=== PATIENT | male | born 1970 | race Caucasian/White ===

== ENCOUNTER 2024-03-04 13:56 | Outpatient (REF) | payer BC, SELFPAY ==
[2024-03-04 14:38] LABS: Internal Control Within Normal Limits; SARS-CoV-2 Ag NEGATIVE (NEGATIVE)
== END 2024-03-04 13:57 | disposition home or self-care (01) ==
LOC: LAB 13:56
PROVIDERS: PCP Nurse Practitioner Family; Visit Provider Nurse Practitioner Family
DX: J06.9 Acute upper respiratory infection, unspecified (principal)
CPT/HCPCS: 87811

== ENCOUNTER 2024-10-17 13:52 | Outpatient (OUT) | payer OTHER, SELFPAY | END 2024-10-17 13:53 | disposition home or self-care (01) | LOC: US 13:53 | PROVIDERS: PCP Nurse Practitioner Family | DX: R20.0 Anesthesia of skin (principal) | CPT/HCPCS: 93971 ==

== ENCOUNTER 2024-10-18 07:47 | Outpatient (OUT) | payer OTHER, SELFPAY | END 2024-10-18 07:48 | disposition home or self-care (01) | LOC: CT 07:47 | PROVIDERS: PCP Nurse Practitioner Family | DX: R20.0 Anesthesia of skin (principal) | CPT/HCPCS: 70450 ==

== ENCOUNTER 2024-11-08 06:32 | Outpatient (OUT) | payer OTHER, SELFPAY ==
--- OUTSIDE RECORDS SUMMARY | 2024-11-08 06:34 | XMS_ITS | CCD ---
Author Organization [facility] CliniSynm Care Team Providers Care Ob/Gyn Physician Name Role Phone Provider, None Unavailable Unavailable NIRMALA AG S Primary Care Physician CHERI TYLER Admitting Unavailable CHERI TYLER Attending Unavailable NIRMALA AG Primary Care Unavailable NIRMALA AG Admitting Unavailable NIRMALA AG Attending Unavailable NIRMALA AG Primary Care Unavailable NIRMALA AG Consulting Unavailable QAMAR, DREW Attending Unavailable QAMAR, DREW Referring Unavailable QAMAR, DREW Attending Unavailable QAMAR, DREW Attending Unavailable SELF, REFERRED Referring Unavailable QAMAR, DREW Attending Unavailable QAMAR, DREW Attending Unavailable SELF, REFERRED Referring Unavailable HIRAM MURILLO Attending Unavailable QAMAR, DREW Attending Unavailable QAMAR, DREW Admitting Unavailable QAMAR, DREW Attending Unavailable QAMAR, DREW Attending Unavailable QAMAR, DREW Referring Unavailable QAMAR, DREW Referring Unavailable QAMAR, DREW Referring Unavailable QAMAR, DREW Referring Unavailable QAMAR, DREW Attending Unavailable Medications Current Medications Medication Drug Class(es) Dates Sig (Normalized) Sig (Original) fluticasone 0.05 mg/inh Nasal [place] (1 source) Start: 06-02-2021 fluticasone 0.05 mg/inh Nasal [place] 1 spray(s), Nasal, Bedtime Allergy symptoms, Refill(s) 0, Allergy symptoms Start Date: 06/02/21 Status: Ordered lisinopril 2.5 mg oral tablet (1 source) Angiotensin Converting Enzyme Inhibitor Start: 06-02-2021 take 1 tablet by mouth once daily lisinopril 2.5 mg Tab 2.5 mg = 1 tab(s), Oral, Daily, Refills(s) 0, High blood pressure Start Date: 06/02/21 Status: Ordered Problems Active Problems Problem Classification Problem Date Documented Da te Episodic/Chronic Abdominal hernia (2 sources) Umbilical hernia 06-02-2021 Episodic Essential hypertension (1 source) Hypertensive disorder 08-04-2021 Chronic Osteoarthritis (2 sources) Unilateral primary osteoarthritis, left knee; Translations: [Unilateral primary osteoarthritis, left knee] Onset: 07-19-2022 Chronic Other connective tissue disease (2 sources) Presence of left artificial knee joint; Translations: [Presence of left artificial knee joint] Onset: 10-02-2022 Chronic Other connective tissue disease (1 source) Acute bursitis 08-04-2021 Episodic Other connective tissue disease (1 source) Diastasis recti 06-08-2021 Episodic Other gastrointestinal disorders (1 source) Abdominal bloating 08-04-2021 Episodic Other gastrointestinal disorders (1 source) Alteration in bowel elimination 08-04-2021 Episodic Other non-traumatic joint disorders (2 sources) Pain in left knee; Translations: [Pain in left knee] Onset: 09-29-2022 Episodic Other nutritional; endocrine; and metabolic disorders (1 source) Body mass index 30+ - obesity 06-08-2021 Chronic Residual codes; unclassified (1 source) Obstructive sleep apnea syndrome 08-04-2021 Chronic Screening and history of mental health and substance abuse codes (1 source) Tobacco use and exposure - finding 06-08-2021 Chronic Substance-related disorders (1 source) Smoker 06-02-2021 Chronic Unclassified (1 source) Rupture of rotator cuff of shoulder 08-04-2021 Unclassified (2 sources) Post-op; Translations: [Post-op] Onset: 08-25-2022 Past or Other Problems Problem Classification Problem Date Documented Da te Episodic/Chronic Other acquired deformities (2 sources) Varus deformity, not elsewhere classified, left knee; Translations: [Varus deformity, not elsewhere classified, left knee] Onset: 07-09-2022 Episodic Viral infection (1 source) Disease caused by 2019-nCoV; Translations: [COVID-19] Results Test Name Value Interpretation Reference Range Facility Telephoneon 09-06-2022 Telephone [id number] Jeff Dillard 1970 M Date Provider Department Center 09/06/2022 [id number], NURSEMP ORTHO MPORTHO No family history on file Reason for Visit and Comments: Med Refill [[id number]] - Pt lvm on script line requesting a refill on oxycodone Normal [facility] 36on 08-26-2022 36 This report has been cancelled. [facility] Orders Onlyon 08-26-2022 Orders Only [id number] Jeff Dillard 1970 M Date Provider Department Center 08/26/2022 MELO TERRY MP ORTHO MPORTHO No family history on file [facility] Telephoneon 08-18-2022 Telephone [id number] Jeff Dillard 1970 Date [facility] Department [place] 08/18/2022 KIM WARD MP MPORTHO No family history on file [facility] Telephoneon 08-16-2022 Telephone [id number] Jeff Dillard 1970 M Date [facility] Department [place] 08/16/2022 KIM WARD MP MPORTTAYLER No family history on file [facility] 36on 08-15-2022 36 Spoke to the patient to see how he is doing after his recent surgery with Dr Hogan. Mr Dillard stated he is doing ok but his knee is still continuing to bleed through the dressing. I spoke with Dr Hogan regarding this he stated the patient needed to come to clinic as soon as possible and have one of the residents see him and apply a GURMEET dressing and speak with him regarding the patients status. The patient stated his pain is controlled with medications. He is taking all the medications he was prescribed at discharge. He denies any redness or major swelling. [facility] Office Visiton 08-15-2022 Follow-up visit [id number] Jeff Dillard 1970 M Date [facility] Department Center 08/15/2022 293-DREW HOGAN MP MPOHO Chart Close Cosign Required by: Drew Hogan MD[[id number]] No family history on file Level of Service:[id number] [place] POSTOP FOLLOW UP VISIT RELATED TO ORIGINAL PX [facility] Telephoneon 08-15-2022 Telephone [id number] Jeff Dillard 1970 M Date Provider Department Center 08/15/2022 KIM WARD MP MPORTHO No family history on file [facility] 36on 08-14-2022 36 Patient called jamie rowley that he has had some oozing from the Mepilex dressing, He inquired about possibly changing the dressing as it has become quite saturated in the oozing out. Discussed with patient that it is okay to remove the dressing if it is that saturated and oozing, but he must replace it with a new dry dressing. Emphasized that he must keep the incision clean and dry until follow-up appointment. He does not have any other symptoms, only concern is the oozing. He is informed to return to clinic or call with any other concerns. [facility] Telephoneon 08-14-2022 Telephone [id number] Jeff Dillard 1970 M Date Provider Department Center 08/14/2022 351Gretel-TERRA [address]ZA MP ORTHO MPORTHO No family history on file [facility] HPon 08-12-2022 HP H&P reviewed. The patient was examined and there are no changes to the H&P. I personally examined the patient and his operative extremity, all questions answered and consents signed. Discussed post operative plan and discussed complexity due to his severe deformity. [facility] NURSNOTEon 08-12-[address] Hogan give second dose of ancef IV prior to discharge, PIV restarted [facility] OPNOTEon 08-12-2022 OPNOTE -- Attestation signed by Drew Hogan MD at 08/15/2022 6:18 PM I was present for the henry and critical portions and I was otherwise immediately available in the OR. Date: 08/12/2022 Location: [facility] OR Name: Jeff Dillard, : 1970, Diagnosis Pre-op Diagnosis * Arthritis of left knee [M17.12] Post-op Diagnosis * Arthritis of left knee [M17.12] Procedures ARTHROPLASTY, KNEE, TOTAL [id number] - WI ARTHRP KNE CONDYLE&PLATU MEDIAL&LAT COMPARTMENTS Surgeons * Drew Hogan - Primary Procedure Summary Anesthesia: General ASA: III Estimated Blood Loss: 200 mL Total IV Fluids: per Anesthesia mL Drains: * None in log * Specimens ID Source Type Tests Collected By Collected At Frozen? Priority Lab ID 1 Knee Fluid BODY FLUID CULTURE AND ANAEROBIC CULTURE Drew Hogan MD 08/12/22 0826 Routine [id number], [id number] Description: LEFT KNEE SYNOVIAL FLUID Implants Type Name Action Serial No. Bone Cement CEMENT,BONE,R,1X40US - [id number] Implanted Total Joint PATELLA,GNSII,RESURFAC E,35MM - [id number] Implanted SIZE 6 LEFT FEMORAL COMPONENT Implanted SIZE 5 TIBIAL BASEPLATE Implanted SIZE 5-6, 9MM, ARTICULAR INSERT Implanted Staff: Story Analyst: Reyna Bucio RN Scrub Person: Rylie Lomas CST Percussion Welding Machine Operator: Dallin Momin CSA Indications: Jeff Dillard is an 52 y.o. male who is having surgery for Arthritis of left knee [M17.12]. Findings: Left knee osteoarthrisit Complications: None; patient tolerated the procedure well. Disposition: PACU - hemodynamically stable. Condition: stable Specimens Collected: Order Name Source Comment Collection Info Order Time BODY FLUID CULTURE AND ANAEROBIC CULTURE Knee Pre-op diagnosis: Arthritis of left knee [M17.12] Collected By: Drew Hogan MD 08/12/2022 8:27 AM Release to Patient Immediately Melo Wilson, PGY3 Orthopedic Surgery Resident Attending Attestation: I was present and scrubbed for the entire procedure. Drew Hogan [facility] OPNOTE ARTHROPLASTY, KNEE, TOTAL (L) Operative Note Date: 08/12/2022 Location: [facility] OR Name: Jeff Dillard, : 1970, Diagnosis Pre-op Diagnosis * Arthritis of left knee [M17.12] Post-op Diagnosis * Arthritis of left knee [M17.12] Procedures ARTHROPLASTY, KNEE, TOTAL [id number] - WI ARTHRP KNE CONDYLE&PLATU MEDIAL&LAT COMPARTMENTS Left Total knee Arthropasty Surgeons * Drew Hogan - Primary Melo Wilson MD Procedure Summary Anesthesia: General ASA: III Estimated Blood Loss: 200 mL Drains: * None in log * Specimens ID Source Type Tests Collected By Collected At Frozen? Priority Lab ID 1 Knee Fluid BODY FLUID CULTURE AND ANAEROBIC CULTURE Drew Hogan MD 08/12/22 0826 Routine [id number], [id number] Description: LEFT KNEE SYNOVIAL FLUID Implants Type Name Action Serial No. Bone Cement CEMENT,BONE,R,1X40US - [id number] Implanted Total Joint PATELLA,GNSII,RESURFAC E,35MM - [id number] Implanted SIZE 6 LEFT FEMORAL COMPONENT Implanted SIZE 5 TIBIAL BASEPLATE Implanted SIZE 5-6, 9MM, ARTICULAR INSERT Implanted [employer] [facility] Size 6 PS Left Oxinium Femoral component, Size 5 Ayala II Tibial base plate , Size 5-6 9 mm poly liner High flex, Size 35 mm patellar component. Staff: Story Analyst: Reyna Bucio RN Scrub Person: Rylie Lomas CST Percussion Welding Machine Operator: Dallin Momin CSA Indications: Jeff Dillard is an 52 y.o. male who is having surgery for Arthritis of left knee [M17.12]. Patient with long standing Left knee pain and significant Deformity history of ACL Surgey and retained Hardware . Patient failed conservative treatment in the form of multiple joint injections. Recommendation were given for Left total knee arthroplasty. All the risks and benefits of the surgery were discussed in details with the patient. Discussed risk of anesthesia, infection, bleeding, injury to nerves and vessels, stiffness, persistence of pain, injury to surrounding structures, blood clots in the legs or lungs, medical complications and the need for revision surgery. Discussed with the patient that he is high risk for complications because of his age and history of skin exczema . Patient understood the recommendations and possible risks and elected to proceed with surgery. An informed consent was obtained. All the preoperative clearances and labs were obtained. Procedure Details: The patient was seen in the preoperative area. All questions were answered and consents were signed. His operative extremity was marked. Patient received an adductor canal block by the anesthesia team. Patient was then taken back to the OR where he received general anesthesia. Patient was positioned in a supine position on the operating table. A nonsterile tourniquet was applied outside of the surgical field. His Left lower extremity was prepped and draped in the standard sterile fashion. A complete surgical timeout was performed in the room in my presence I identified the patient the site of the surgery as well as the procedure to be done. Preoperative antibiotics were given per protocol. We Started by marking an anterior midline incision over the Left knee extending from the tibial tubercle to about 3 cm proximal to the superior pole of patella utilizing the scar of the previous surgery. . Incision was made dissection continued deeper to the deep fascia. A medial subfacial flap and a smaller lateral flap were elevated. A medial parapatellar arthrotomy was performed in the standard fashion. The knee was opened with significant amount of arthritis. The medial tibial peel was performed to the mid axial plane. The lateral patellar fat pad was excised to improve visualization. The synovium over the anterior aspect of the distal femur was excised. Good hemostasis was obtained using Aquamantys machine. At this point the patella was everted and the lateral patellofemoral ligament was released. The knee was very gently flexed and the leg externally rotated to decrease tension over the patellar ligament. At this point the knee was exposed with significant arthritis and deformity, massive osteophyte formation and significant erosion of the medial tibial plateau. Degenerative changes in the tibial and femoral surfaces especially in the medial compartments with complete cartilage loss and eburnation of articular surface as well as extensive osteophyte formation. The remnants of the medial and lateral menisci were removed. The remnants of the ACL and PCL attachments are released to decrease tension. At this point the white side line was identified and the femoral canal opened, the marrow contents were suctioned and the intra medullary quide was inserted slowly. The distal femoral cutting block was inserted and +4 distal femoral cut was performed to correct the severe flexion deformity of the knee. Once the distal femoral cut was performed and found to be appropriate. Attention now was directed to the ti (more content not included)... Normal [facility] POCT GLUCOSE METER UNSOLICIT ED RESULTSon 08-12-2022 Glucose [Mass/Vol] 101 mg/dL Normal 70-105 [facility] Comment on above: Result Comment: german [email or web address] Performed By: #### L [id number] ####[facility] ([facility] [place])[address] [place] [address] POCT SARS-COV-2 PCRon 2022 POC SARS-COV-2 ANTIGEN Negative Normal Negative [facility] Comment on above: Result Comment: ID N OW COVID-19 assay performed on the ID NOW Instrument is a rapid molecular in vitro diagnostic test utilizing an isothermal nucleic acid amplification technology intended for the qualitative detection of nucleic acid from the SARS-CoV-2 virus in direct anterior nasal(nasal), nasopharyngeal or throat swabs from individuals who are suspected of COVID-19 by their healthcare provider within the first seven days of the onset of symptoms.Testing is limited to laboratories certified under the Clinical Laboratory Improvement Amendments of 1988 (CLIA), 42 U.S.C. ???263a,that meet the requirements to perform high, moderate, or waived complexity tests. The [employer] NOW COVID-19 assay is also authorized for use at the Point of Care (POC), i.e., in patient care settings operating under a CLIA Certificate of Waiver, Certificate of Compliance, or Certificate of Accreditation. Performed By: #### L [id number] ####[facility] ([facility] [place])[address] [place] [address] WOUND CULTUREon 08-12-2022 GRAM STAIN RESULT Abnormal [facility] Comment on above: Result Comment: Mode rate Polymorphonuclear leukocytes No organisms seen Performed By: #### L [id number] ####[facility] ([facility] [place])[address] [place] [address] WOUND CULTURE No growth at 5 days Normal [facility] Comment on above: Performed By: #### L [id number] ####[facility] ([facility])[address] [place] [address] [id number] 08-05-2022 [id number] No outpatient medications have been marked as taking for the 08/05/22 encounter (Orders Only) with Tania Weldon RN. Additional Instructions: NPO AFTER MN, HOLD NSAIDS, NO MEDS DOS, NO JEWELRY, BRING ID AND INS CARD, SAFETY PHYSICIAN AND 24 HOUR WATCHER Normal [facility] Orders Onlyon 08-05-2022 Orders Only [id number] Jeff Dillard 1970 M Date Provider Department Center 08/05/2022 ChelseyManishLEATHAARCELIA CROSSTANIA [facility] PAT SD Medical C No family history on file Normal [facility] APTTon 08-04-2022 ACTIVATED PARTIAL THROMBOPLASTIN TIME IN PPP BY COAGULATION ASSAY 40.2 Seconds High 25.0-35.0 [facility] Comment on above: Performed By: #### L [id number] ####[facility] ([facility])[address] [place] [address] BASIC METABOLIC PANELon Anion gap [Moles/Vol] 0 mmol/L Low 7-20 [facility] Comment on above: Performed By: #### L [id number] ####[facility] ([facility])[address] [place] [address] Calcium [Mass/Vol] 9.6 mg/dL Normal 8.6-10.3 [facility] Comment on above: Performed By: #### L [id number] ####[facility] ([facility])[address] [place] [address] Chloride [Moles/Vol] 97 mmol/L Low 98-107 [facility] Comment on above: Performed By: #### L [id number] ####[facility] ([facility])[address] [place] [address] CO2 [Moles/Vol] 36 mmol/L High 21-31 [facility] Comment on above: Performed By: #### L [id number] ####[facility] ([facility])[address] [place] [address] Creatinine [Mass/Vol] 0.85 mg/dL Normal 0.70-1.30 [facility] Comment on above: Performed By: #### L [id number] ####[facility] ([facility])[address] [place] [address] GLOMERULAR FILTRATION RATE ML/MIN/1.73 SQ M.PREDICTED 99.5 mL/min/1.73m*2 Normal >60.0 [facility] Comment on above: Result Comment: The [facility]???s estimated glomerular filtration rate (eGFR) will no longer include consideration of race in its calculation. The National Kidney Foundation???s eGFR Task Force developed new recommendations for the estimation of the glomerular filtration rate in the [place] They recommend immediate implementation of the new equation refit without the race variable in all laboratories because the calculation does not include race. In addition to not including race in the calculation and reporting, it included diversity in its development, and has acceptable performance characteristics and potential consequences that do not disproportionately affect any one group of individuals. Performed By: #### L [id number] ####[facility] ([facility] [place])[address] [email or web address] [address] Glucose [Mass/Vol] 95 mg/dL Normal 70-100 [facility] Comment on above: Performed By: #### L [id number] ####[facility] ([facility] [place])[address] [email or web address] [address] Potassium [Moles/Vol] 4.7 mmol/L Normal 3.5-5.1 [facility] Comment on above: Performed By: #### L [id number] ####[facility] ([facility] [place])[address] [place] [address] Sodium [Moles/Vol] 133 mmol/L Low 136-145 [facility] Comment on above: Performed By: #### L [id number] ####[facility] ([facility] [place])[address] [email or web address] [address] Urea nitrogen [Mass/Vol] 11 mg/dL Normal 7-25 [facility] Comment on above: Performed By: #### L [id number] ####[facility] ([facility] [place])[address] [place]Change[place] [address] UREA NITROGEN/CREATININ E (MASS RATIO) IN SER/PLAS 12.94 Normal [facility] Comment on above: Performed By: #### L [id number] ####[facility] ([facility] [place])[address] [place] [address] C-REACTIVE PROTEINon 023 C REACTIVE PROTEIN (MG/L) IN SER/PLAS 7.6 mg/L High 0.0-7.0 [facility] Comment on above: Performed By: #### L [id number] ####[facility] ([facility] [place] [address] CBC WITH AUTO DIFFERENTIALon 08-04-2022 Basophils (Bld) [#/Vol] 0.03 10*3/uL Normal 0.00-0.20 [facility] Comment on above: Performed By: #### L [id number] ####[facility] ([facility] [place])[address] [place] [address] Basophils/100 WBC (Bld) 0.3 % Normal 0.0-1.0 [facility] Comment on above: Performed By: #### L [id number] ####[facility] ([facility] [place])[address] [place] [address] Eosinophils (Bld) [#/Vol] 0.12 10*3/uL Normal 0.00-0.50 [facility] Comment on above: Performed By: #### L [id number] ####[facility] ([facility] [place])[address] [place] [address] Eosinophils/100 WBC (Bld) 1.3 % Normal 0.0-6.0 [facility] Comment on above: Performed By: #### L [id number] ####[facility] ([facility] [place])[address] [place] [address] Erythrocyte distribution width (RBC) [Ratio] 12.5 % Normal 11.5-15.0 [facility] Comment on above: Performed By: #### L [id number] ####[facility] [place] [address] ERYTHROCYTE MEAN CORPUSCULAR HEMOGLOBIN CONCENTRATION (G/DL) BY AUTOMATED 32.7 g/dL Normal 32.0-35.0 [facility] Comment on above: Performed By: #### L [id number] ####[facility] ([facility])[address] [place] [address] Hematocrit (Bld) [Volume fraction] 45.5 % Normal 39.0-55.0 [facility] Comment on above: Performed By: #### L [id number] ####[facility] ([facility])[address] [place] [address] Hemoglobin (Bld) [Mass/Vol] 14.9 g/dL Normal 13.0-17.0 [facility] Comment on above: Performed By: #### L [id number] ####[facility] ([facility])[address] [place] [address] Immature granulocytes (Bld) [#/Vol] 0.04 10*3/uL Normal 0.00-0.20 [facility] Comment on above: Performed By: #### L [id number] ####[facility] ([facility])[address] [place] [address] Immature granulocytes/100 WBC (Bld) 0.4 % Normal 0.0-1.0 [facility] Comment on above: Performed By: #### L [id number] ####[facility] ([facility])[address] [place] [address] Lymphocytes (Bld) [#/Vol] 2.57 10*3/uL Normal 1.20-4.00 [facility] Comment on above: Performed By: #### L [id number] ####[facility] ([facility])[address] [place] [address] Lymphocytes/100 WBC (Bld) 27.6 % Normal 20.0-45.0 [facility] Comment on above: Performed By: #### L [id number] ####[facility] ([facility])[address] [place] [address] MCH (RBC) [Entitic mass] 30.4 pg Normal 27.0-33.0 [facility] Comment on above: Performed By: #### L [id number] ####[facility] ([facility])[address] [place] [address] MCV (RBC) [Entitic vol] 92.9 fL Normal 82.0-98.0 [facility] Comment on above: Performed By: #### L [id number] ####[facility] (BEAKER)[address] [place] [address] Monocytes (Bld) [#/Vol] 0.67 10*3/uL Normal 0.10-1.00 [facility] Comment on above: Performed By: #### L [id number] ####[facility] ([facility])[address] [place] [address] Monocytes/100 WBC (Bld) 7.2 % Normal 5.0-12.0 [facility] Comment on above: Performed By: #### L [id number] ####[facility] ([facility])[address] [place] [address] Neutrophils (Bld) [#/Vol] 5.89 10*3/uL Normal 1.60-7.60 [facility] Comment on above: Performed By: #### L [id number] ####[facility] ([facility])[address] [place] [address] Neutrophils/100 WBC (Bld) 63.2 % Normal 40.0-72.0 [facility] Comment on above: Performed By: #### L [id number] ####[facility] ([facility])[address] [place] [address] NRBC (PER 100 WBCS) BY AUTOMATED COUNT 0.0 % Normal 0.0-0.0 [facility] Comment on above: Performed By: #### L [id number] ####[facility] ([facility])[address] [place] [address] PLATELETS (10*3/UL) IN BLOOD AUTOMATED COUNT 249 10*3/uL Normal 150-400 [facility] Comment on above: Performed By: #### L [id number] ####[facility] (BEAKER)[address] [place] [address] RBC (Bld) [#/Vol] 4.90 10*6/uL Normal 4.20-5.70 [facility] Comment on above: Performed By: #### L [id number] ####[facility] ([facility])[address] [place] [address] WBC (Bld) [#/Vol] 9.32 10*3/uL Normal 4.00-10.60 [facility] Comment on above: Performed By: #### L [id number] ####[facility] ([facility])[address] [place] [address] Consulton 08-04-2022 Consult [id number] Jeff Dillard 1970 M Date Provider Department Center 08/04/2022 DREW JESUS MP ORTHO MPORTHO No family history on file Level of Service:37045 [place] OFFICE/OUTPATIENT ESTABLISHED LOW MDM 20-29 MIN () Reason for Visit and Comments: Pain [136] - Pre op L tka Normal [facility] HEMOGLOBIN A1Con 08-04-2022 Glucose [Mass/Vol] 114.02 mg/dL Normal [facility] Comment on above: Performed By: #### L [id number] ####[facility] ([facility])[address] [place] [address] HbA1c (Bld) [Mass fraction] 5.6 % Normal 4.0-6.0 [facility] Comment on above: Performed By: #### L [id number] ####[facility] ([facility])[address] [place] [address] HPon 08-04-2022 Orthopedic Surgery Subjective Chief complaint: Chief Complaint Patient presents with Left Knee - Pain Pre op L tka 08/04/22 Jeff Dillard is a 52 y.o. year old male presenting for evaluation of left knee Jeff Dillard is a 51 y.o. year old male presenting for evaluation of Left knee pain. Patient is here for his preoperative visit prior to surgery. Patient states that he has had chronic left knee pain for many years now. He states over the last 2 years it is gotten profoundly worse. He notes that he had an ACL reconstruction done in 1987. He states that he has been good since the surgery but is quickly started to become debilitating. He states that he is unable to work and has been put off work and told to seek out treatment and then have this done in order to return to work. He states that his bothers him throughout all hours. He has had cortisone injections we do not help at all. Patient with severe left knee pain and deformity for years , failed conservative treatment , referred for evaluation referred to discuss surgery. Patient severe deformity and with obesity Patient is scheduled for Left TKA, patient hasn't had his final medical clearance yet pending An Echo cardiogram. Patient History Past Surgical History: Procedure Laterality Date KNEE SURGERY Left x2 Past Medical History: Diagnosis Date Hypertension Objective General examination: Patient is alert oriented x3, not in distress, unlabored breathing. Normal mood, normal affect. Looks uncomfortable HEENT : Normocepahlic , atraumatic, no nasal discharge Eye exam: No conjunctivitis Cardivascular: Radial pulse 2+ normal rate and rhythm, warm well perfused extremities. Pulmonary: No wheezing or cough no laboured breathing. Abdominal exam: soft non tender abdomen. Skin: moist , warm , no rash, no bruising Psychiatristic: Normal mood and affect. Muscloskeletal exam : Exam of the left knee showed well healed incision of previous surgey for ACL. No redness hotness or inflammation, no effusion, obvious severe varus deformity. Decreased ROM 5- 100 deg. Ttp over the medial joint line , No DVT , intact N/V exam LLE -Some numbness tingling on the dorsum of the L foot, consistent with reported neuropathy per patient Imaging personally reviewed: X rays of the Left knee obtained on 08/01/2022 as well as long standing films obtained today in clinic independently reviewed and interpreted by me showed Left knee advanced degenerative joint disease with severe varus deformity of the left knee. Retained hardware Left knee. Assessment/Plan Jeff Dillard is a 52 y.o. 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 History of ACL surgery. PLAN: Patient scheduled for Left Total knee arthroplasty Obtain pre op clearances: Per patient- saw PCP yesterday and awaiting EKG to be performed for final clearance. Pt will fax to our office upon completion. Discussed with the patient the result of imaging and clinical exam discussed surgical options Discussed with the patient all the risks and benefits of surgery as well as the nonsurgical options. Discussed risk of anesthesia, Infection, bleeding, injury to nerves and vessels, injury to surrounding structures, stiffness, persistence of pain, blood clots to the legs or the lungs, medical complications and the need for revision surgery. Patient understood the recommendations and possible risks and elected to proceed with surgery. Ex[plained to the patient the complexity due to the previous retained hardware and the severe varus deformity that might require a more constrained prosthesis. Discussed obtaining intra op cultures during surgery due to his previous ACL surgery with retained hardware. Office Visit Attestation GC: I personally saw this patient on the day of the encounter, performed the henry portion(s) of the service and participated in the management and confirm the resident's documentation. Please note there may be an additional personal documentation from me. I, Drew Hogan, personally performed the face to face evaluation on this patient. I discussed with the patient and confirmed the accuracy and completeness of the aforementioned history prepared by the cheney practice provider, and I personally performed the clinical examination of the patient. I discussed the treatment plan with the patient. Drew Hogan MD Normal [facility] Labon 08-04-2022 Lab [id number] DillardJeff 1970 Date Provider Department Center 08/04/2022 2244-[facility] MP LAB RESOURCE MP DRAW Medical Pavi No family history on file Normal [facility] MRSA/MSSA DNA NASALon 2022 MRSA DNA Negative Normal Negative, Invalid [facility] Comment on above: Performed By: #### L [id number] ####[facility] (BEAKER)[address] [place] [address] MSSA DNA Negative Normal Negative, Invalid [facility] Comment on above: Performed By: #### L [id number] ####[facility] (BEAKER)[address] [place] [address] PROTIME-INRon 08-04-2022 INR IN PPP BY COAGULATION ASSAY 0.93 Normal 0.90-1.10 [facility] Comment on above: Result Comment: ACCC P RECOMMENDED INR FOR WARFARIN THERAPY CONDITION INR PROPHYLAXIS OF VENOUS THROMBOSIS 2-3 (HIGH-RISK SURGERY) TREATMENT OF VENOUS THROMBOSIS 2-3 TREATMENT OF PULMONARY EMBOLISM 2-3 PREVENTION OF SYSTEMIC EMBOLISM: 2-3 ACUTE MYOCARDIAL INFARCTION TISSUE HEART VALVES VALVULAR HEART DISEASE ATRIAL FIBRILLATION RECURRENT SYSTEMIC EMBOLISM MECHANICAL HEART VALVE 2.5-3.5 FROM: ORAL ANTICOAGULANTS. MECHANISM OF ACTION, CLINICAL EFFECTIVENESS, AND OPTIMAL THERAPEUTIC RANGE. CHEST 1995;108:231S-246S. Performed By: #### L [id number] ####[facility] (Igen[facility]ER)[address] [place] [address] PROTHROMBIN TIME (PT) IN PPP BY COAGULATION ASSAY 12.5 Seconds Normal 12.3-14.8 [facility] Comment on above: Performed By: #### L [id number] ####[facility] (BEAKER)[address] [place] [address] SEDIMENTATION RATEon 023 SEDIMENTATION RATE, ERYTHROCYTE 7 mm/hr Normal <=10 [facility] Comment on above: Performed By: #### L [id number] ####[facility] ([facility])[address] [place] [address] TYPE AND SCREENon 08-04-2022 AB SCREEN Negative Normal [facility] Comment on above: Performed By: #### L [id number] ####[facility] BLOOD BANK, ABO group Nom (Bld) A Normal [facility] Comment on above: Performed By: #### L [id number] ####[facility] BLOOD BANK, RH TYPE IN BLOOD Positive Normal [facility] Comment on above: Performed By: #### L [id number] ####[facility] BLOOD BANK, Telephoneon 08-04-2022 Telephone [id number] Jeff Dillard 1970 M Date Provider Department Center 08/04/2022 KIM WARD [facility] No family history on file Normal [facility] URINALYSIS MICROSCOPIC WITH REFLEX CULTUREon 08-04-2022 CASTS IN URINE Normal [facility] Comment on above: Performed By: #### L [id number] ####[facility] (BEAKER)[address] [place] [address] CRYSTALS IN URINE Normal [facility] Comment on above: Performed By: #### L [id number] ####[facility] (BEAKER)[address] [place] [address] LEUKOCYTE ESTERASE PRESENCE IN URINE BY TEST STRIP Negative Normal Negative [facility] Comment on above: Performed By: #### L [id number] ####[facility] (BEAKER)[address] [place] [address] Order Comment: 0000 Performed By: #### L [id number] ####[facility] (BEAKER)[address] [place] [address] MUCUS (#/HPF) IN URINE SEDIMENT Occasional Normal None Seen, Occasional, Few [facility] Comment on above: Performed By: #### L [id number] ####[facility] (BEAKER)[address] [place] [address] NITRITE PRESENCE IN URINE Negative Normal Negative [facility] Comment on above: Performed By: #### L [id number] ####[facility] (BEAKER)[address] [place] [address] Order Comment: 0000 Performed By: #### L [id number] ####[facility] (BEAKER)[address] [place] [address] OTHER MICROSCOPIC ELEMENTS Normal [facility] Comment on above: Performed By: #### L [id number] ####[facility] (BEAKER)[address] [place] [address] RBC (#/HPF) IN URINE SEDIMENT 0-2 Abnormal None Seen [facility] Comment on above: Performed By: #### L [id number] ####[facility] (BEAKER)[address] [place] [address] SQUAMOUS EPITHELIAL CELLS (#/HPF) IN URINE SEDIMENT None Seen Normal None Seen, Occasional [facility] Comment on above: Performed By: #### L [id number] ####[facility] ([facility])[address] [place] [address] WBC (LEUKOCYTE) (#/HPF) IN URINE SEDIMENT 0-2 Abnormal None Seen [facility] Comment on above: Performed By: #### L [id number] ####[facility] ([facility])[address] [place] [address] URINALYSIS WITH REFLEX CULTU REon 08-04-2022 BILIRUBIN, TOTAL PRESENCE IN URINE Negative Normal Negative [facility] Comment on above: Order Comment: 0000 Performed By: #### L [id number] ####[facility] ([facility])[address] [place] [address] Clarity (U) Clear Normal Clear [facility] Comment on above: Order Comment: 0000 Performed By: #### L [id number] ####[facility] ([facility])[address] [place] [address] Color (U) Straw Normal Yellow, Dark Yellow, Straw [facility] Comment on above: Order Comment: 0000 Performed By: #### L [id number] ####[facility] ([facility])[address] [place] [address] Glucose (U) [Mass/Vol] Negative Normal Negative [facility] Comment on above: Order Comment: 0000 Performed By: #### L [id number] ####[facility] ([facility])[address] [place] [address] HEMOGLOBIN PRESENCE IN URINE Trace Abnormal Negative [facility] Comment on above: Order Comment: 0000 Performed By: #### L [id number] ####[facility] ([facility])[address] [place] [address] Ketones Ql (U) Negative Normal Negative [facility] Comment on above: Order Comment: 0000 Performed By: #### L [id number] ####[facility] ([facility])[address] [place] [address] pH (U) 6.0 [pH] Normal 5.0-8.0 [facility] Comment on above: Order Comment: 0000 Performed By: #### L [id number] ####[facility] (BEAKER)[address] [place] [address] Protein (U) [Mass/Vol] Negative Normal Negative [facility] Comment on above: Order Comment: 0000 Performed By: #### L [id number] ####[facility] ([facility])[address] [place] [address] Specific gravity (U) [Rel density] 1.004 Low 1.015-1.020 [facility] Comment on above: Order Comment: 0000 Performed By: #### L [id number] ####[facility] ([facility])[address] [place] [address] UROBILINOGEN (EU/DL) IN URINE 0.2 EU/dL Normal Negative [facility] Comment on above: Order Comment: 0000 Performed By: #### L [id number] ####[facility] ([facility])[address] [place] [address] Orders Onlyon 08-02-2022 Orders Only [id number] DillardJeff daugherty 1970 M Date Provider Department Center 08/02/2022 KIM WARD MP ORTHO MPORTHO No family history on file Normal [facility] Telephoneon 07-26-2022 Telephone [id number] DillardHaroldoJeff 1970 M Date Provider Department Center 07/26/2022 KIM WARD MP ORTHO MPORTHO No family history on file Normal [facility] Orders Onlyon 07-19-2022 Orders Only [id number] DillardJeff 1970 M Date Provider Department Center 07/19/2022 CHEO LUGO MP ORTHO MPORTHO No family history on file Normal [facility] XR Knee Complete Right*on XR Knee Complete Right* HISTORY: Knee pain since twisting injury COMPARISON: Radiograph 02/02/2021 TECHNIQUE: AP, lateral, oblique and sunrise views. FINDINGS: No acute fracture or dislocation. Joint spaces are maintained. Small joint effusion. Soft tissues are within normal limits. IMPRESSION: No acute osseous abnormality. Report reported and signed by Percy Bauer on 07/12/2022 1557 Normal [facility] Pad Extraction Tender Follow-Upon 07-09-2022 Follow-Up [id number] Jeff Dillard 1970 M Date Provider Department Center 07/09/2022 DREW JESUS MP ORTHO MPORTHO No family history on file Level of Service:18175 [place] OFFICE/OUTPATIENT ESTABLISHED MOD MDM 30-39 MIN Reason for Visit and Comments: Pain [136] Follow-up [925201] Normal [facility] Office Visiton 07-04-2022 Follow-up visit [id number] Jeff Dillard 1970 M Date Provider Department Center 07/04/2022 HIRAM JOHNSON MP ORTHO MPORTHO No family history on file Level of Service:01495 [place] OFFICE/OUTPATIENT NEW MODERATE MDM 45-59 MINUTES Reason for Visit and Comments: Pain [136] Normal [facility] US Venous, Unilat, Lower Ext Lefton 03-23-2022 US Venous, Unilat, Lower Ext Left HISTORY: Pain FINDINGS: The deep venous system of the left lower extremity exhibits full compressibility and normal flow augmentation. These specifically include the common femoral, superficial femoral, and popliteal veins. No evidence of deep venous thrombosis is present. No cystic or soft tissue mass in the popliteal fossa. Infrapopliteal superficial varicosities, no evidence of thrombophlebitis. Mild subcutaneous interstitial edema. IMPRESSION: 1. No deep or superficial venous thrombosis. Report reported and signed by Raheel Andrews on 03/23/2022 1552 Normal [facility] Pad Extraction Tender Consent for Anesthesiaon Consent for Anesthesia [id number]. 00CD:127 Normal [facility] Preoperative Documentson Preoperative Documents [id number]. 00CD:127 Normal [facility] Ambulatory Visit Summaryon 0 09-01-2021 Ambulatory Visit Summary JEFF DILLARD :1970 Visit Date:09/01/2021 Ambulatory Visit Instructions Your Care Team Attending Physician - SONIYA MATSON, Herbert Alvarez Primary Care Physician - NIRMALA AG CNP This Is Your Medications List Contact prescribing physician if questions or concerns fluticasone nasal (fluticasone 0.05 mg/inh Nasal [place]) lisinopril (lisinopril 2.5 mg Tab) Procedures Performed Repair of recurrent umbilical hernia (08/09/2021), Colonoscopy (08/02/2021), Arthroscopy of knee. Discharge Vitals Temperature (Temporal Artery) 36.4 ?C Medications What How Much When Instructions Unchanged fluticasone nasal (fluticasone 0.05 mg/ inh Nasal [place]) 1 Sprays Nasal Inhalation At bedtime as needed for Allergy symptoms Contact prescribing physician if questions or concerns Unchanged lisinopril (lisinopril 2.5 mg Tab) 1 Tablets By Mouth Every day Contact prescribing physician if questions or concerns Allergies No Known Allergies No Known Medication Allergies Problems Ongoing - Any problem that you are currently receiving treatment for. BMI 33.0-33.9,adult Diastasis recti Smoker Tobacco use Umbilical hernia Historical - Any problem that you are no longer receiving treatment for. Abdominal bloating with cramps bursitis right elbow Change in bowel habits HTN (hypertension) DAYAMI (obstructive sleep apnea) [place] [facility] General Surgery Office/Clini c Noteon 09-01-2021 General Surgery Office/Clinic Note Chief Complaint post operative follow up HPI Staff 23 day post operative follow up post robotic assisted umbilical hernia repair. Denies pain, takes daily Advil for generalized pain. Denies bleeding or drainage from incision sites. Bowels moving well. Wearing abdominal binder except yesterday and today. He is aware he should be wearing this until 4 weeks post operatively. History of Present Illness 3 1/2 weeks s/p robotic-assisted umbilical hernia repair with mesh; doing well, denies pain, no drainage from incisions, no swelling at umbilicus. to return to work next week. Physical Exam Vitals & Measurements T: 36.4 ?C(Temporal Artery) abd: soft, nontender, nondistended, incisions without erythema or drainage, no seroma or recurrent hernia. Assessment/Plan 1. Umbilical hernia (K42.9: Umbilical hernia without obstruction or gangrene) doing well, resume regular activities next week, call with problems/questions. Follow-up With When Contact Information SONIYA MATSON, Herbert Alvarez, SEBAS Only if needed [address] [place] [address]- Additional Instructions: Problem List/Past Medical History Ongoing BMI 33.0-33.9,adult Diastasis recti Smoker Tobacco use Umbilical hernia Historical Abdominal bloating with cramps bursitis right elbow Change in bowel habits HTN (hypertension) DAYAMI (obstructive sleep apnea) Procedure/Surgical History Repair of recurrent umbilical hernia (08/09/2021), Colonoscopy (08/02/2021), Arthroscopy of knee. Medications fluticasone 0.05 mg/inh Nasal [place], 1 spray(s), Nasal, Bedtime, PRN lisinopril 2.5 mg Tab, 2.5 mg= 1 tab(s), Oral, Daily Allergies No Known Allergies No Known Medication Allergies Social History Alcohol - Low Risk, 08/09/2021 Substance Abuse - Denies Substance Abuse, 06/08/2021 Tobacco 10 or more cigarettes (1/2 pack or more)/day in last 30 days Tobacco Use:. Never Smokeless Tobacco Use:. Cigarettes, 0.5 per day. Started age 18.0 Years., 06/08/2021 Family History Diabetes mellitus type 2: Father. Parkinson disease: Father. Normal [facility] Comment on above: Result Comment: Elec tronically Signed By: SONIYA MATSON, Herbert Alvarez\.br\Date and Time Signed: 09/01/21 14:03 EST Ambulatory Visit Summaryon 0 08-18-2021 Ambulatory Visit Summary JEFF DILLARD :1970 Visit Date:08/18/2021 Ambulatory Visit Instructions Your Diagnosis Hernia, umbilical Diastasis recti Your Care Team Attending Physician - Herbert LEWIS MD Primary Care Physician - NIRMALA AG CNP This Is Your Medications List fluticasone nasal (fluticasone 0.05 mg/inh Nasal [place]) lisinopril (lisinopril 2.5 mg Tab) Procedures Performed Repair of recurrent umbilical hernia (08/09/2021), Colonoscopy (08/02/2021), Arthroscopy of knee. Discharge Vitals Temperature (Temporal Artery) 36.2 ?C What to do next Scheduled Follow-Up Appointments Monday. 2021 2:00 PM EST With: Herbert LEWIS MD Where: General Surgery Soniya/Sandy Lj Normal [facility] General Surgery Office/Clini c Noteon 08-18-2021 General Surgery Office/Clinic Note Chief Complaint post operative follow up HPI Staff 9 day post operative follow up post robotic assisted umbilical hernia repair with mesh. Minimal discomfort, mostly at bedtime. He is taking Tylenol for pain. Advised he switch to taking Ibuprofen 600mg TID. Denies bleeding or drainage from incision sites. Bowels moving well. Wearing abdominal binder as directed. History of Present Illness 9 days s/p robotic-assisted umbilical herniorrhaphy with mesh insertion; doing well, mild soreness, no drainage from incisions; no N/V; normal bms, no strenuous activities. Review of Systems ROS - Provider Constitutional: no fever, no sweats, no weight loss. Eyes: no glasses, no blurred vision, no visual loss. ENMT: no dentures, no hoarseness, no swallowing difficulties, no hearing loss, no ear infection(s), no nose bleeds. Cardiovascular: normal blood pressure, no chest pain, regular heartbeat, no heart murmur. Respiratory: no shortness of breath, no cough, no asthma, no wheezing. Gastrointestinal: no nausea, no vomiting, no diarrhea, no constipation, no blood in stool, no change in bowel habits, no abdominal pain, no hepatitis. Genitourinary: no kidney stones, no urine infection, no dysuria. Musculoskeletal: no pain, no weakness. Skin: no changing moles, no rash, no skin lumps. Neurologic: no seizures, no epilepsy, no headache. Psychiatric: no emotional or psychiatric problem. Heme/Lymph: no bleeding problems, no anemia, no blood clots, no transfusions. Allergy/Immunologic: no swollen lymph nodes/glands, no IV drug abuse. Other: Additional ROS info: Except as noted in the above Review of Systems and in the History of Present Illness, all other systems have been reviewed and are negative or noncontributory. Physical Exam Vitals & Measurements T: 36.2 ?C(Temporal Artery) abd: soft, normal bs, nontender, nondistended; incisions without erythema or drainage, no ecchymoses; 1 cm seroma at umbilicus. Assessment/Plan 1. Hernia, umbilical (K42.9: Umbilical hernia without obstruction or gangrene) doing well, continue to wear abdominal binder, no lifting > 10 lbs for 3 weeks; follow up in 2 weeks, call sooner if problems/questions. 2. Diastasis recti (M62.08: Separation of muscle (nontraumatic), other site) see # 1 Follow-up No qualifying data available Problem List/Past Medical History Ongoing BMI 33.0-33.9,adult Diastasis recti Smoker Tobacco use Umbilical hernia Historical Abdominal bloating with cramps bursitis right elbow Change in bowel habits HTN (hypertension) DAYAMI (obstructive sleep apnea) Procedure/Surgical History Repair of recurrent umbilical hernia (08/09/2021), Colonoscopy (08/02/2021), Arthroscopy of knee. Medications fluticasone 0.05 mg/inh Nasal [place], 1 spray(s), Nasal, Bedtime, PRN lisinopril 2.5 mg Tab, 2.5 mg= 1 tab(s), Oral, Daily Allergies No Known Allergies No Known Medication Allergies Social History Alcohol - Low Risk, 08/09/2021 Substance Abuse - Denies Substance Abuse, 06/08/2021 Tobacco 10 or more cigarettes (1/2 pack or more)/day in last 30 days Tobacco Use:. Never Smokeless Tobacco Use:. Cigarettes, 0.5 per day. Started age 17.0 Years., 06/08/2021 Family History Diabetes mellitus type 2: Father. Parkinson disease: Father. Normal [facility] Comment on above: Result Comment: Elec tronically Signed By: SONIYA MATSON, Herbert Berkowitz\Date and Time Signed: 08/18/21 14:10 EST IntraOperative Documentson 0 08-16-2021 IntraOperative Documents [id number]#1. 00CD:127 [facility] Postoperative Documentson Postoperative Documents [id number]#1. 00CD:127 [facility] Progress Note-Physicianon Progress Note-Physician Patient: JEFF DILLARD Age: 51 years Sex: Male : 1970 Associated Diagnoses: None Author: Ishmael Torre Jr, DO Postoperative Information Post Operative Note: Post Anesthesia Care Unit. Anesthetic utilized: General. Health Status Allergies: Allergic Reactions (Selected) No Known Allergies No Known Medication Allergies Problem list: All Problems BMI 33.0-33.9,adult / SNOMED CT 175820592 / Confirmed Diastasis recti / SNOMED CT 901579204 / Confirmed RCT (rotator cuff tear) / SNOMED CT 9030571012 / Confirmed Smoker / SNOMED CT 682186598 / Confirmed Tobacco use / SNOMED CT 784925310 / Confirmed Umbilical hernia / SNOMED CT 1693956961 / Confirmed Hernia, umbilical / SNOMED CT 6291135631 / Confirmed Resolved: Abdominal bloating with cramps / SNOMED CT 656252186 Resolved: bursitis right elbow / SNOMED CT 876613167 Resolved: Change in bowel habits / SNOMED CT 698213214 Resolved: HTN (hypertension) / SNOMED CT 8341276860 Resolved: DAYAMI (obstructive sleep apnea) / SNOMED CT 234181947 Physical Examination Vital Signs 08/09/2021 11:33 EST Temperature Oral 36.4 DegC Heart Rate Monitored 70 bpm Systolic Blood Pressure 152 mmHg HI Diastolic Blood Pressure 97 mmHg HI Blood Pressure Location Left arm Mean Arterial Pressure, Monitered 115 mmHg SpO2 96 % 08/09/2021 11:33 EST Respiratory Rate 16 br/min 08/09/2021 10:20 EST Temperature Oral 36.3 DegC Heart Rate Monitored 84 bpm Respiratory Rate 16 br/min Systolic Blood Pressure 134 mmHg Diastolic Blood Pressure 91 mmHg HI Blood Pressure Location Right arm SpO2 95 % 08/09/2021 10:15 EST Temperature Temporal Artery 36.2 DegC LOW Heart Rate Monitored 86 bpm Respiratory Rate Monitored 20 br/min Systolic Blood Pressure 122 mmHg Diastolic Blood Pressure 74 mmHg SpO2 94 % 08/09/2021 10:00 EST Heart Rate Monitored 82 bpm Respiratory Rate Monitored 16 br/min Systolic Blood Pressure 98 mmHg Diastolic Blood Pressure 71 mmHg SpO2 93 % 08/09/2021 9:55 EST Heart Rate Monitored 85 bpm Respiratory Rate Monitored 15 br/min Systolic Blood Pressure 100 mmHg Diastolic Blood Pressure 67 mmHg SpO2 94 % 08/09/2021 9:50 EST Heart Rate Monitored 87 bpm Respiratory Rate Monitored 20 br/min Systolic Blood Pressure 111 mmHg Diastolic Blood Pressure 61 mmHg SpO2 94 % 08/09/2021 9:48 EST Temperature Temporal Artery 36.2 DegC LOW Heart Rate Monitored 89 bpm Respiratory Rate Monitored 15 br/min Systolic Blood Pressure 116 mmHg Diastolic Blood Pressure 62 mmHg SpO2 94 % 08/09/2021 9:40 EST Heart Rate Monitored 107 bpm bpm Respiratory Rate 25 br/min br/min Systolic Blood Pressure 129 mmHg mmHg Diastolic Blood Pressure 72 mmHg mmHg SpO2 92 % % 08/09/2021 9:36 EST Systolic Blood Pressure 134 mmHg mmHg Diastolic Blood Pressure 94 mmHg mmHg 08/09/2021 9:35 EST Heart Rate Monitored 106 bpm bpm Respiratory Rate 15 br/min br/min SpO2 94 % % 08/09/2021 9:32 EST Systolic Blood Pressure 126 mmHg mmHg Diastolic Blood Pressure 80 mmHg mmHg 08/09/2021 9:30 EST Heart Rate Monitored 92 bpm bpm Respiratory Rate 16 br/min br/min SpO2 97 % % 08/09/2021 9:28 EST Systolic Blood Pressure 93 mmHg mmHg Diastolic Blood Pressure 63 mmHg mmHg 08/09/2021 9:25 EST Heart Rate Monitored 86 bpm bpm Respiratory Rate 16 br/min br/min SpO2 96 % % 08/09/2021 9:24 EST Systolic Blood Pressure 86 mmHg mmHg Diastolic Blood Pressure 51 mmHg mmHg 08/09/2021 9:20 EST Heart Rate Monitored 87 bpm bpm Respiratory Rate 16 br/min br/min Systolic Blood Pressure 89 mmHg mmHg Diastolic Blood Pressure 57 mmHg mmHg SpO2 96 % % 08/09/2021 9:16 EST Systolic Blood Pressure 93 mmHg mmHg Diastolic Blood Pressure 58 mmHg mmHg 08/09/2021 9:15 EST Heart Rate Monitored 89 bpm bpm Respiratory Rate 16 br/min br/min SpO2 96 % % 08/09/2021 9:12 EST Systolic Blood Pressure 91 mmHg mmHg Diastolic Blood Pressure 55 mmHg mmHg 08/09/2021 9:10 EST Heart Rate Monitored 87 bpm bpm Respiratory Rate 16 br/min br/min SpO2 96 % % 08/09/2021 9:08 EST Systolic Blood Pressure 94 mmHg mmHg Diastolic Blood Pressure 54 mmHg mmHg 08/09/2021 9:05 EST Heart Rate Monitored 81 bpm bpm Respiratory Rate 16 br/min br/min SpO2 97 % % 08/09/2021 9:04 EST Systolic Blood Pressure 101 mmHg mmHg Diastolic Blood Pressure 61 mmHg mmHg 08/09/2021 9:00 EST Respiratory Rate 16 br/min br/min Systolic Blood Pressure 82 mmHg mmHg Diastolic Blood Pressure 49 mmHg mmHg SpO2 95 % % 08/09/2021 8:57 EST Systolic Blood Pressure 83 mmHg mmHg Diastolic Blood Pressure 53 mmHg mmHg 08/09/2021 8:55 EST Heart Rate Monitored 82 bpm bpm Respiratory Rate 16 br/min br/min SpO2 94 % % 08/09/2021 8:53 EST Systolic Blood Pressure 87 mmHg mmHg Diastolic Blood Pressure 55 mmHg mmHg 08/09/2021 8:50 EST Heart Rate Monitored 85 bpm bpm Respiratory Rate 16 br/min br/min SpO2 95 % % 08/09/2021 8:49 EST Systolic Blood Pressure 93 mmHg mmHg Diastolic Blood Pressure 62 mmHg mmHg (more content not included)... Normal [facility] Comment on above: Result Comment: Elec tronically Signed By: Ishmael Torre Jr, DO\.br\Date and Time Signed: 08/13/21 15:41 EST Operative Reporton Operative Report Patient: EVELYN DILLARD Age: 51 years Sex: Male : 1970 Associated Diagnoses: None Author: Ishmael Torre Jr, DO Postoperative Information Date/ Time: 08/09/2021 08:00:00 Preoperative Diagnosis: Acute postoperative pain.. Postoperative Diagnosis: Acute postoperative pain. Procedure: TAP block. Anesthesia Method: Local, Monitored anesthesia care. Performed by: Ishmael Torre Jr, DO. Medications Complications: None. Notes: The patient was interviewed and examined prior to the planned operation. Anesthesia options were discussed including B/L rectus sheath block for postoperative analgesia. This discussion included a description of the procedure, risks and benefits, as well as alternatives to the block. The patients questions were addressed and the patient elected to proceed with the B/L rectus sheath block. The patient was placed in the supine position and monitored with continuous pulse oximetry, non-invasive blood pressure, and electrocardiography. The patient was then induced for general anesthesia and preparations for the proposed operation continued. The LEFT/RIGHT ABDOMEN AND FLANK AREA was prepped with ChloraPrep and sterilely draped. Anatomical landmarks were identified with ultrasonographic guidance. A 2 x 22 gauge Stimuplex needle was inserted without pain or paresthesias. Following a negative attempted aspiration for blood,e XParel 1.3% with 0.25% bupivicaine was slowly injected with to a total volume of _30_ cc to the left and 30cc to the right. Periodic negative attempts at aspiration for blood were made as the local was injected. The patient tolerated the procedure well. . Normal [facility] Comment on above: Result Comment: Elec tronically Signed By: Ishmael Torre Jr, DO\.br\Date and Time Signed: 08/12/21 09:40 EST Progress Note-Physicianon Progress Note-Physician Patient: JEFF DILLARD Age: 51 years Sex: Male : 1970 Associated Diagnoses: None Author: Ishmael Torre Jr, DO Preoperative Information Time patient last ate or drank:=== (npo 8 hours) Anesthesia history: Patient history: No prior anesthesia problems. Re-evaluation prior to induction: Completed, Initial evaluation reviewed. Review of Systems Respiratory: No shortness of breath. Cardiovascular: No chest pain. Hematology/Lymphatics: No bruising tendency, No bleeding tendency. Health Status Allergies: Allergic Reactions (All) No Known Allergies No Known Medication Allergies Current medications: (Selected) Inpatient Medications Ordered Lactated Ringers IV Linda 1000 mL 1,000 mL: 1,000 mL, IV, 150 mL/hr, Routine, Start date 08/09/21 6:00:00 EST, 6.7 hour(s), Total volume (mL): 1,000, 100.6 kg, 2.17, m2 Documented Medications Documented fluticasone 0.05 mg/inh Nasal [place]: 1 spray(s), Nasal, Bedtime Allergy symptoms, Refill(s) 0, Allergy symptoms lisinopril 2.5 mg Tab: 2.5 mg = 1 tab(s), Oral, Daily, Refills(s) 0, High blood pressure Problem list: All Problems BMI 33.0-33.9,adult / SNOMED CT 585659619 / Confirmed Diastasis recti / SNOMED CT 926471806 / Confirmed RCT (rotator cuff tear) / SNOMED CT 4405174630 / Confirmed Smoker / SNOMED CT 757890974 / Confirmed Tobacco use / SNOMED CT 334941510 / Confirmed Umbilical hernia / SNOMED CT 4142591703 / Confirmed Hernia, umbilical / SNOMED CT 3016701383 / Confirmed Resolved: Abdominal bloating with cramps / SNOMED CT 043403605 Resolved: bursitis right elbow / SNOMED CT 428806513 Resolved: Change in bowel habits / SNOMED CT 725405505 Resolved: HTN (hypertension) / SNOMED CT 1492781672 Resolved: DAYAMI (obstructive sleep apnea) / SNOMED CT 768451915 Histories Past Medical History: Resolved DAYAMI (obstructive sleep apnea) (235670042): Resolved. HTN (hypertension) (5648474620): Resolved. Change in bowel habits (375077871): Resolved. Abdominal bloating with cramps (940343860): Resolved. bursitis right elbow (087923555): Resolved. Family History: Diabetes mellitus type 2 Father Parkinson disease Father Procedure history: Colonoscopy (817345047) on 08/02/2021 at 51 Years. Arthroscopy of knee x2 one surgery reconstruction (250073309). Social History Social & Psychosocial Habits Alcohol 06/08/2021 Risk Assessment: Denies Alcohol Use Substance Abuse 06/08/2021 Risk Assessment: Denies Substance Abuse Tobacco 06/08/2021 Tobacco Use: 10 or more cigarettes (1/ Smokeless tobacco use: Never Type: Cigarettes Tobacco use per day: 0.5 Started [age] age: 17.0 Years . Physical Examination VS/Measurements Respiratory: Lungs are clear to auscultation. Cardiovascular: Normal rate, Regular rhythm. Review / Management Results review Interpretation of Outside Results Chest x-ray results Radiology results ECG interpretation Condition Plan [employer] (ASA) physical status classification: Class II. Anesthetic Preoperative Plan Anesthesia: General. . Anesthetic plan, risks, benefits, and alternatives discussed with the patient and/or family. Risks discussed: nausea, vomiting, headache, sore throat, dental injury, serious complications. Patient verbalized understanding. Communication: face to face with (patient 5 minutes, Pt educated on the importance of smoking cessation.). Normal [facility] Comment on above: Result Comment: Elec tronically Signed By: Ishmael Torre Jr, DO\wilber\Date and Time Signed: 08/12/21 09:38 EST Coding Summary.on 08-11-2021 Coding Summary. CD:[id number] Gh 0bWw+PGhlYWQ+GU2KENFfN 57rhTIlfS9ZO6oPNP5RLOM FTIUUYW3YBC9jxOV9RJufP 2VybiAv MzgjiQIsNZ92QXh7IZM3pM kdDVjywK1hdLBhH8t2XbCg TE75wA17KQxnCNEkPqD2Qx ZpbjsgbWFy C5pkUaQwvXKaBez+PHRhYm xlIHdpZHRoPScxMDAlJyBz xDfoYJ9gKs9gRXZfHZHxeK xhcHNlOiBj i1pzXNMyWTcgLA2sgAhkO6 HknWV8GWAbz3o2Li34gPG+ GMTsDNP5hGchZAsvi415Cg Wrl2sqUPM8 uORtIWjrQTH2V90ut7G4YY UuKBCiVKX9jOW0uO0cuNti ocyxL9QlgZKmDkW9JGY1hB QpsL5qyNla tewgvF2bTox+V47CEC2SWE UCKS3AVqg4C4SmZzotcCF+ YY41OTKrYE47vTCpoMKpo1 hgzCa5ZxFp LFPvMES5gOemMXmjq0MtMF BjZ40qkBKgp5O0HRTmkZwa dTMdAiIdgYY6iO0eKOhrnk tkn9ikuagd Oztnc1fqev84nZ76X55gZD kdDPPbWRD6KWHfTZDnqOfw lk5meB1cTm8+TLgzu1xdk8 bhiEb6HzQl PFUmdqSlqPbbHUX3f7CpWc 74K3IewKony4JyAiy2ul65 bMOuk2C6eDL3GArwIMMwaK 5kOIhsUfM6 JOKhZgKurL52uEVlBDprOo 1boLacjBobWI5cKDAosoaz JNRmqT2rEQFonPQenUfuDU 4wNTBpbjtm o658CjVzMCS1YWSoqHEfZ8 QenZ9wPpTzFSJeZAYmY5Sa jBJzOIarF684EFdcCaU8IM PyylSvC7Of ARDnlBitUoU7h9K6Fp3Cl0 RzfyrvAIE9VWxoNAIzUnD1 YdIdPnU8S3SyErw0MNBmuM fbFS0sO4Za SUOgpijkkftwjDB1KPXkGT TlkI67rAGoCHhzTa7vg0M8 r493XLSxUJJpeA84Dg4stT ogMTBwdCBU xY5plxikz8ivermqXyGyGW MgAFt7CJt6HIJaxYjlWqDb MJY9AwP2BAF3tERlnF4azA evoilndN6u Oyc+C17emA1lYPE2DXC5kr vrKDZelnKgMX72LJ36T3Rj PjwvdGFibGU+PGRpdiBzdH sfMZ8bOfSu v1kjo7DmSDfiN0UsGPOeXY plNvw2KIEdMDL5yYS9vS9w YNNxAJaoh4K3eUX3L1Prkt Vfyk1rl9ch LYEfUTdkQ15nvLHwf9P2RO SssTT7JASyrTviRwNsuY43 Oyc+ERXerCfpj1PkCsdpk6 cmq8bglBs2 YtCkHFVacqUurTzqUUE6j9 VwKb80Y10dUGgvBRHnGJMa IJBwOZCooSelzt6oiB5qTs 8+PGNvbCB3 bCK6aZ9qLKZzKdE1XDxqX5 77PgXzbFFeZwtbt7khy0zu pMb3MoLkHNVuhsTdtPciXM C4b6CoNy37 A29hYUfwIMAxBBJnYMVnBO AviQqynk4ihM5fTe5+PC9j i3zppo26yS98cEO+PHRkIH L7eQsoZMvo RCBejC1iUIaeGhO0UAGkNf JnuA24dWXhIHyoAn7znBuc dQyjBI9hCWJhhbtnz880Ea Nsl8utISKb aIDmORlaRKF4Q66iy8D0TC KsUHYdTWU2lQO4gY9hnIis bjogbGVmdDsgdmVydGljYW lqSBzfA356 IHRvcDsnPlBhdGllbnQgTm UsAQp2N5OiJuq6DNUazDyu AQ7ooAEaDFrdTe4kjVykwL kfHU0mSLNr wayze528ZtGhy9xrMOFydF DtEAjqBUT1W45fz8U9PJLi BZEbEXY4iQB6jM5biOkfhw ogbGVmdDsg qsGjvQlxTTjfKLluB784NH RvcDsnPkJpcnRoIERhdGU6 UZ44FO70fAEel3D6tDT6T1 BhZGRpbmct aecmmEB7YGLyBQVqfV10Oq 2cfOjlDe6dJQRzTVY7DWUo cHWoV8EyhD3lIbJqXTNiDQ TpA9HhfEZh VTopI748WUewXcF6BZVbmq SjK9KfAOQpjVrhJyG3v5O4 Jh4KB3P7VX93LC13mDNrh0 W7tSX7J8Mk AQUdnrgacadqgTS3UETxXO WucW02Yx6nqZdzRd5mXVSk ZEJ3HYBxtDCvD8FxdO6lNf AjMDAwMDAw M1NiwPXcVVjqS829TRegJe U1RSHhprCjD2TpKRXlnFnm DaH6u9U6Xw6ITOr9NV25FQ 16lNSks4E9 oOO4U9RjFTNuxzkbwicufE Q4GZEkIHPagJ09Wr9icLuv Ig0kKEAtHXU8FHJedZLxV3 EvnM9iEbOb XPSiQXYuW4UnnMSxIDxqS6 98WKtkQtO3WGGryqLmF9Ev CKFtgSdgIbS1k5R2Qw2DHD HsRW11GVU1 sPD9RW19TH63V0ZvQtkpcI FibGU+PHRhYmxlIHdpZHRo CXenKWAdApKjjDzsTD5rUv 9yZGVyLWNv zFqroCBuRrQex2bcSAMoUQ nqGQ1obIgoG3RjoFA0AEDd p7g3Am56U62oY7QqvDL+PG QxwAD2zVR4 sH4fWtWlJzR8TNqeG904Pt CkoJOmPvzuh0etf8xjpFp8 HcQ5ZKOnmeZyiOqlNAD8z3 TlGw52B27j IHdpZHRoPSIxNSUiIHZhbG ollm9vwJ3bYr4+PGNvbCB3 tQF9iN7lSlRwCiJ4YTczD0 49InRvcCIv Ntbla4pul2vlkPg4UbMaSO UyyiGghAfwXAF3o1EqYw58 Q4FdgHnoq6ClUzv4uo77pE Rri0F4eUQ3 I3JbJZAcmraxaBExgReaFO 9gNMScahhkKCBbhR6oVVGq I0m9GkVbFkT9LQzwC2Fqdy Z8JGPxbSMd HZsuXRE1Y27po5G3MRSyEP FdSUX6gQK6hR2noQdllwqj bGVmdDsgdmVydGljYWwtYW wfC103RZBx hNgjTCCsaK2aIWHtxUCkoZ fiSF8mCVMaeslxTsLPL6QN RGGKXARHFfCBQH30SN99xS Zow8Z9xMD1 F3CqJSVgjxbdgbjntPA1IM KsBOXaiK79kZEvRSybLu4z p2T4t327LAXwCOWcgT00Ul 9udDogMTBw oIQEjJ0lejpnh0eyezseCy GhKMNiKHx6GDt8APZjiSjt YdRmJSW2GgJ5GJH8fXXstO 1hbGlnbjog pW9uZjb+CCXlTtMkWLp5TR wvdGQ+BJQkOHZ7hGiqTEhx YKEokT1cPFOgP8c4HjNlNp D2GJboL9Id FOTjtxfbRz10iV3xIsDnWd T5FRldK6PcsjM1VYZdeRIv YEoaPBV6R89sb3K0LLWeQF RrAOW2wEQ3 lX8cjXeapwxfjYBzcGdxdl ZpeVnzPRvrUOavD168ODSv xGrhSwDqTVfvCPQeKG01CI 15bGGhd4Y4 vXT8J4CdTYGrcnqgoqrgtC M7DEWgDFCshO75nIRpHCip Jf9vf9X2q576OKVpNNKvwM 51Hd8paYlb EVAogBVRzK9arhhii5fvoy dvShTiZGOmUCi1RXo7PIHx gTkzRjPvWEC3WwR6SVE6cA LftG9tgDvn owtavM3cAuk+TWFsZTwvdG Q+XYDlUPO6qQchPHmkIQPm lM1uIQEtK9m0AxLiCnL7MI erU0XnZWVb pyljIw23zB9sXtTnGbV8WU hsA0LkciB7HTGugVKxFIil ARL9P76zj5B9ACDpPJWrWW O4dXQ3xT7n bGlnbjogbGVmdDsgdmVydG dbXZfhLNdiA345IAYlnXha IjTaCxDwVVLvksclD0WaHW CMJNwjP5Fp M5XgfDsrrDX+EG36kt12V3 YuXtmgEmb3UWYfYKP1iVZ1 sW7qWAArYOtyf2L9rUN3S6 ArqxVouh7z f8bdAYNtZHsgE11quEZke1 L5KHFbjNE3YUEicHphTxRz hF71Ads+GTAdaKsmm7IfSk hnu3dfz4gh qYk2VoGqGRGuaaZjiKoiLM P2j1LmNw58X61dFHuyEWBf FCKmPZUdNIQqnBcvnn7jjW 9wIi8+PGNv cVQ9pFT6sZ8kArBtTgQ2LH luD076MeKbeSKtMlddl4ih x5yhsHf4BmXmAXWdncPizP jvEJX4i1Ey Zn85B4VptHipf6CeMnp1es 24kGEqn9I1yCG7R2DcCQEm ujgbsHUhqVjkGV9kVZJhqm zxBCZzxD0p MTIpB5b6LzYxYnL4PBylU5 EsjyH0NOHzdKUgUWRnrFYU wV8gxrvqw9ghohmlOyOgOK BkNKt2DHd9 CVAhmBrdEdEpQKO1LzD3IL S6bFGegC0duQyodtdhwT7u Oyc+ZZb1s1yatOVdNF1xlW V4KH86BP73 oQTme0K6tXG3V3BfMFVmjk fjzpfejWF1FCVxGQInhF55 Bh1kuPcnNp2qDZLzLYP4BI NgiXXoF2Qs yD5rNkCgTQJtOCPrB6PjfW IlDFtjU991NSwfMkS6PJDf eaYjO3DqDTFybGtdAlW9a3 Y1Xo2OMY42 XF65PZ10zQQdm2F7dBW3E7 VbHWWqteuzvqirlAC7LFVd KURfeK76Th7chRfcSw0sAU WqJMY2AWTk sQSkX8BuhL0zKmHaYGKdMA SkV3ZybVAeZDgoD142HYjg ZiQ4VOIafeEpP1UaKGLlvV auUoA9f7H9 Mv5IBv19AX59TH16tBLcn6 R0tUS4X2PhKLLmzrxtbtip iDT8XNUoEPLjsU93Zk5wmN orTr5rZWGn FIA9QZBzkPRwM2OanK0kBk ZzVEEdPOGrM8McyJPwQUoo S579BLcpLnA1SYPvpkRwU1 FsLWFsaWdu YgW9u5R2Nx5OTPoiyik9I8 RkPjwvdHI+LD01NFLcEQ37 hZUjaILxc8zkdGg5VfHqBG WuOBB1tCut PSdi (more content not included)... [facility] Discharge Instructionson Discharge Instructions [id number]#1. 00CD:127 Normal [facility] IntraOperative Documentson 0 08-10-2021 IntraOperative Documents [id number]#1. 00CD:127 [facility] IntraOperative Documents [id number]#1. 00CD:127 [facility] Main OR Intraoperative Recor don 08-10-2021 Main OR Intraoperative Record Normal [facility] Preoperative Documentson Preoperative Documents [id number]#1. 00CD:127 [facility] Preoperative Documents [id number]#1. 00CD:127 [facility] Consent for Procedure/Surger yon 08-09-2021 Consent for Procedure/Surgery [id number]#1. 00CD:127 [facility] Consent for Treatmenton 07-27 Consent for Treatment [id number]#1.0 0CD:127 [facility] H&P Updateon 08-09-2021 H&P Update [id number]#1. 00CD:127 [facility] Inpatient Patient Summaryon 08-09-2021 Inpatient Patient Summary [place] [id number] [facility] Clinical Discharge Instructions PERSON INFORMATION Name: JEFF DILLARD [facility] Admitting Physician: Herbert LEWIS MD Attending Physician: Herbert LEWIS MD PCP: NIRMALA AG CNP Discharge Diagnosis: Unspecified abdominal pain Comment: PATIENT EDUCATION INFORMATION Instructions: Post Op Patient Instructions - FT (Custom) Medication Leaflets: Follow up: With: Address: When: Herbert LEWIS [facility], [address], [facility] [address] [place] [address] Business (1) Within 7 to 10 days MEDICATION LIST New Medications [employer] [address], [address], [place] [id number], [phone] acetaminophen-oxycodon e (Percocet 325 mg-5 mg Tab) 1 Tablets By Mouth every 4 hours as needed Pain. take with food or milk. Refills: 0. Medications to Continue with No Changes Other Medications fluticasone nasal (fluticasone 0.05 mg/inh Nasal [place]) 1 Sprays Nasal Inhalation at bedtime as needed Allergy symptoms. lisinopril (lisinopril 2.5 mg Tab) 1 Tablets By Mouth every day. Comment: Normal [facility] Main OR PACU I Recordon 07-27 Main OR PACU I Record PACU Phase I Document Type FT Summary Primary Physician: Herbert LEWIS MD Finalized Date/Time: 08/09/21 10:24:36 Pt. Name: JEFF DILLARD Maggie /Sex: 1970 Male Med Rec #: [id number] Physician: Herbert LEWIS MD Financial #: [id number] Pt. Type: A Room/Bed: / Admit/Disch: 08/09/21 06:23:11 - Institution: Case Times PACU I FT Pre-Care Text: Identifies barriers to communication and implements measures to provide psychological support Develops individualized plan of care, and ensures continuity of care Maintains patient's dignity and privacy, and maintains patient confidentiality Identifies and reports philosophical, cultural, and spiritual beliefs and values Identifies individual values and wishes concerning care Implements aseptic technique, and administers prescribed antibiotic therapy and immunizing agents as ordered Evaluates postoperative tissue perfusion Implements thermoregulation measures, and monitors body temperature Evaluates postoperative respiratory status Evaluates postoperative cardiac status Evaluates postoperative neurological status Assesses pain control, collaborated in initiating patient-controlled analgesia and implements alternative methods of pain control Verifies allergies, administers prescribed medications and solutions, evaluates response to medications Entry 1 In PACU I 08/09/21 09:48:00 Discharge from PACU 08/09/21 10:18:00 I Outcomes Met? Yes Last Modified By: Adrienne Alvarado RN 08/09/21 10:24:15 Post-Care Text: The patient demonstrates knowledge of the expected response to the operative or invasive procedure The patient's care is consistent with the individualized perioperative plan of care The patient's right to privacy is maintained The patient's value system, lifestyle, ethnicity, and culture are considered, respected, and incorporated into the perioperative plan of care The patient participates in decisions affecting his or her perioperative plan of care The patient is free from signs and symptoms of infection The patient has wound/tissue perfusion consistent with or improved from baseline levels established preoperatively The patient is at or returning to normothermia at the conclusion of the immediate postoperative period The patient's respiratory function is consistent with or improved from baseline levels established preoperatively The patient's cardiovascular status is consistent with or improved from baseline levels established preoperatively The patient's cardiovascular status is consistent with or improved from baseline levels established preoperatively The patient demonstrates and/or reports adequate pain control throughout the perioperative period The patient received appropriate medication(s), safely administered during the perioperative period Acuity Level PACU I FT Entry 1 Start Time 08/09/21 09:48:00 Stop Time 08/09/21 10:18:00 Acuity Level Acuity Level I Last Modified By: Adrienne Alvarado RN 08/09/21 10:24:32 Finalized By: Adrienne Alvarado RN Document Signatures Signed By: Adrienne Alvarado RN 08/09/21 10:24 Normal [facility] Main OR Preoperative Recordo n 08-09-2021 Main OR Preoperative Record PreOp Document Type FT Summary Primary Physician: Herbert LEWIS MD Finalized Date/Time: 08/09/21 08:43:50 Pt. Name: JEFF DILLARD/Sex: 1970 Male Med Rec #: [id number] Physician: Herbert LEWIS MD Financial #: [id number] Pt. Type: A Room/Bed: [place] [address] Admit/Disch: 08/09/21 06:23:11 - Institution: Case Times PreOp FT Pre-Care Text: Verifies consent for planned procedure, identifies individual values and wishes concerning care, includes family members in perioperative teaching Entry 1 Patient Times. In Pre Surgery 08/09/21 06:30:00 Out Pre Surgery 08/09/21 07:46:00 Outcomes Met? Yes Last Modified By: Soraya Claros RN 08/09/21 08:43:49 Post-Care Text: The patient participates in decisions affecting his or her perioperative plan of care Finalized By: Soraya Claros RN Document Signatures Signed By: Soraya Claros RN 08/09/21 08:43 Normal [facility] Monitor Recordon 08-09-2021 Monitor Record [id number]. 00CD:127 Normal [facility] Monitor Record [id number]. 00CD:127 Normal [facility] Operative Reporton Operative Report SURGERY DATE: 08/09/2021 PREOPERATIVE DIAGNOSIS: Umbilical hernia, symptomatic POSTOPERATIVE DIAGNOSIS: Umbilical hernia, symptomatic OPERATION: Robotic assisted umbilical herniorrhaphy with mesh insertion ANESTHESIA: General endotracheal ESTIMATED BLOOD LOSS: Less than 10 mL INDICATIONS AND CONSENT: The patient is a 51 year old male with an enlarging symptomatic umbilical hernia, also associated diastasis recti. The indications, risks, benefits, alternatives of proceeding with robotic assisted herniorrhaphy with mesh insertion were explained extensively to the patient including risk of bleeding, infection, scarring, pain, recurrent hernia, bowel injury, blood clot, pulmonary embolus, heart attack, anesthetic complications, need for further surgery or mesh removal. All of his questions were answered. Informed consent was obtained. PROCEDURE: The patient was brought to the Operating Room and placed in the supine position. General anesthesia was induced. Leger catheter was inserted using sterile technique. Bilateral rectus sheath blocks were performed per Anesthesia with Exparel solution. The patient was then prepped and draped in the usual sterile fashion. A right subcostal port site incision was made with a scalpel blade and carried down through the subcutaneous tissue using blunt dissection. The fascia was grasped and incised. Two 0 Vicryl stay sutures were placed in either side of the midline fascia. The Michelle trocar was then inserted and secured using the stay sutures. The abdomen was then insufflated with carbon dioxide to a pressure of 15 mm Hg. The scope was inserted and the upper abdomen was visualized. There was noted to be some scarred omentum to the hernia site. Two robotic 8 mm ports were then placed. The camera port was placed laterally in the mid-abdomen and the other working port was placed in the right lower quadrant laterally also under direct visualization. The #1 nonabsorbable V-Loc suture was then placed in the upper abdomen into the falciform ligament for safekeeping. The robot was then docked. Bipolar grasper was placed in the #1 arm, the monopolar scissors in the #3 arm. I then broke scrub and went to the console. The scarred omentum was taken down sharply from the area of the hernia. A peritoneal flap was then created beginning to the right of the midline at the edge of the rectus sheath. The peritoneum and preperitoneal fat was then mobilized from the falciform ligament down to below the umbilicus and was carried down to the midline and then across to the edge of the left rectus sheath. The hernia sac was excised as well as well as some preperitoneal fat that was within the hernia. Once the pocket was complete the grasper and needle scissors were traded out for two needle drivers. The #1 V-Loc suture was then used to close the defect beginning inferiorly and running the suture cephalad and then back inferiorly. Once this was complete the scissors were brought in through the #1 arm. The suture was cut. The needle was then brought out under direct visualization through the right subcostal Michelle. The ProGrip mesh 10 x 6 cm was inserted under direct visualization along with 3-0 V-Loc suture, absorbable. ProGrip mesh was then inserted. Covered the defect well. The peritoneal pocket was then closed using the 3-0 V-Loc suture. The right edge of the ProGrip was sutured down with the peritoneal closure. There was good hemostasis. There was complete coverage of the mesh. Once this was complete the needle was then brought out through the right subcostal Michelle under direct visualization. The remaining grasper was removed. The robot was undocked. I then scrubbed back into the field, examined the repair. It was noted to be intact with good hemostasis. The peritoneum was completely covering the defect in the mesh. All port sites were examined. Upon withdrawal of the ports there was noted to be good hemostasis. The right subcostal port site fascia was closed with a 0 Vicryl [id number]-[id number]-[id number] suture. All port sites were infiltrated with the remaining Exparel solution. The skin was then closed with interrupted 4-0 subcuticular Monocryl suture and skin glue. Sterile dressings were applied as well as a pressure dressing to the umbilical area and abdominal binder. Sponge and needle counts were correct x2 per Nursing personnel. The patient tolerated the procedure well, was extubated. Leger catheter was removed. He was sent to Recovery Room in good condition. Herbert Lewis M.D. FACS lr Dictated: 08/09/2021 [id number] Transcribed: 08/09/2021 cc:*Nirmala Romero CNP [facility] Comment on above: Result Comment: Elec tronically Signed By: Herbert LEWIS MD\.br\Date and Time Signed: 08/09/21 12:43 EST Outpatient Surgery Discharge Instructionon 08-09-2021 Outpatient Surgery Discharge Instruction [place] [id number] Patient Discharge Instructions PERSON INFORMATION Name: JEFF DILLARD Date of : 1970 Current Date: 08/09/2021 10:05:45 PHYSICIANS Admitting Physician: Herbert LEWIS MD Discharge Diagnosis: Unspecified abdominal pain JEFF DILLARD has been given the following list of follow-up instructions, prescriptions, and patient education materials: PATIENT FOLLOW-UP INFORMATION Diet: Regular Discharge Activity: Arrange for a responsible adult supervision for 24 hours Discharge Restrictions: No driving, Do not operate machinery or tools, Do not make important decisions for 24 hours, Do not drink alcoholic beverages for 24 hours Call Your Doctor For: Persistent or heavy bleeding, Temperature above 101.5 degrees, Redness, swelling, or pus at operative site, Severe pain at the operative site, Persistent vomiting Wound Care Instructions: Keep incision dry, Remove dressing as instructed Remove Your Dressing In 1 Days Additional Instructions: may shower tomorrow, remove dressings and leave open to air, no tub baths for 10 days wear abdominal binder at all times, wear cotton t-shirt under binder no lifting > 10 lbs for 4 weeks; no driving while taking the Percocet; take Ibuprofen scheduled IF UNABLE TO CONTACT YOUR PHYSICIAN AND YOU FEEL IT IS AN EMERGENCY, GO TO THE NEAREST EMERGENCY ROOM OR CALL 911 NISHANT Wilson KEVIN A, have received the attached patient education materials/instructions and have verbalized understanding: May we do a follow up call? Yes No I was present when discharge instructions were given Patient Signature Date Clinican/Nurse Signature ___ Date Follow up: With: Address: When: Herbert Jose, [address], [address] [address] Business (1) Within 7 to 10 days Pharmacy Information: You may receive a survey from [facility] asking you to rate your care experience. Your feedback is important and will help us understand what we do well and how we can improve the quality of care we provide to you, your loved ones and our community. It?s an honor to serve you. Thank you for choosing [facility] HERE ARE THE MEDICATION CHANGES THAT OCCURRED DURING YOUR HOSPITAL STAY New Medications [employer] [address], [address] [place] [id number], [phone] acetaminophen-oxycodon e (Percocet 325 mg-5 mg Tab) 1 Tablets By Mouth every 4 hours as needed Pain. take with food or milk. Refills: 0. Medications to Continue with No Changes Other Medications fluticasone nasal (fluticasone 0.05 mg/inh Nasal [place]) 1 Sprays Nasal Inhalation at bedtime as needed Allergy symptoms. lisinopril (lisinopril 2.5 mg Tab) 1 Tablets By Mouth every day. PATIENT EDUCATION INFORMATION Instructions: Medication Leaflets: Normal [facility] Patient Education - Texton 0 08-09-2021 Patient Education - Text Normal [facility] UA With Cult Reflexon 2021 Bilirubin Ql (U) Negative Normal Negative [facility] Comment on above: Performed By: #### 1 [id number] ####[facility] [address] [place] [address] Clarity (U) CLEAR Normal Clear [facility] Comment on above: Performed By: #### 1 [id number] ####[facility] [address] [place] [address] Color (U) YELLOW Normal Yellow [facility] Comment on above: Performed By: #### 1 [id number] ####[facility] [address] [place] [address] Epithelial cells.squamous LM.HPF (Urine sed) [#/Area] 0-2 Normal 0-2 [facility] Comment on above: Performed By: #### 1 [id number] ####[facility] [address] [place] [address] Glucose Test strip (U) [Mass/Vol] Negative Normal Negative [facility] Comment on above: Performed By: #### 1 [id number] ####[place] [address] [place] [address] Hemoglobin Ql (U) Negative Normal Negative [facility] Comment on above: Performed By: #### 1 [id number] ####[address] [address] Ketones (U) [Mass/Vol] Negative Normal Negative [facility] Comment on above: Performed By: #### 1 [id number] ####[address] [address] Dorris.plasma/Lit hium.RBC (Bld) [Mass ratio] 0-3 Normal 0-3 [facility] Comment on above: Performed By: #### 1 [id number] ####[address] [address] Nitrite Ql (U) Negative Normal Negative [facility] Comment on above: Performed By: #### 1 [id number] ####[address] [address] pH (U) 7.0 [pH] Invalid Interpretation Code 5.0-9.0 [facility] Comment on above: Performed By: #### 1 [id number] ####[address] [address] Protein (U) [Mass/Vol] Negative Normal Negative [facility] Comment on above: Performed By: #### 1 [id number] ####[address] [address] Specific gravity (U) [Rel density] 1.015 Invalid Interpretation Code 1.005-1.030 [facility] Comment on above: Performed By: #### 1 [id number] ####[address] [address] Type of Urine collection method Leger Normal [facility] Comment on above: Performed By: #### 1 [id number] ####[address] [address] Urobilinogen Qn (U) 0.2 {Kavitha'U}/dL Normal 0.0-1.0 [facility] Comment on above: Performed By: #### 1 [id number] ####[facility] [address] [place] [address] WBC Auto Ql (U) Negative Normal Negative [facility] Comment on above: Performed By: #### 1 [id number] ####[facility] [address] [place] [address] WBC LM.HPF (Urine sed) [#/Area] 0-5 Normal 0-5 [facility] Comment on above: Performed By: #### 1 [id number] ####[facility] [address] [place] [address] Progress Note-Physicianon Progress Note-Physician Patient: JEFF DILLARD Age: 51 years Sex: Male : 1970 Associated Diagnoses: None Author: Ishmael Torre Jr, DO Postoperative Information Post Operative Note: Post Anesthesia Care Unit. Anesthetic utilized: Monitored anesthesia care. Health Status Allergies: Allergic Reactions (Selected) No Known Allergies No Known Medication Allergies Problem list: All Problems Abdominal bloating with cramps / SNOMED CT 642509284 / Confirmed Change in bowel habits / SNOMED CT 125272300 / Confirmed BMI 33.0-33.9,adult / SNOMED CT 953572839 / Confirmed Diastasis recti / SNOMED CT 095956169 / Confirmed HTN (hypertension) / SNOMED CT 9200314996 / Confirmed DAYAMI (obstructive sleep apnea) / SNOMED CT 214759614 / Confirmed Smoker / SNOMED CT 811791677 / Confirmed Tobacco use / SNOMED CT 591004197 / Confirmed Umbilical hernia / SNOMED CT 2388694602 / Confirmed Physical Examination Vital Signs 08/02/2021 8:15 EST Heart Rate Monitored 82 bpm Respiratory Rate Monitored 20 br/min Systolic Blood Pressure 142 mmHg HI Diastolic Blood Pressure 102 mmHg HI SpO2 98 % 08/02/2021 8:05 EST Heart Rate Monitored 92 bpm Respiratory Rate Monitored 13 br/min Systolic Blood Pressure 133 mmHg Diastolic Blood Pressure 91 mmHg HI SpO2 96 % 08/02/2021 8:00 EST Heart Rate Monitored 98 bpm Respiratory Rate Monitored 20 br/min Systolic Blood Pressure 123 mmHg Diastolic Blood Pressure 86 mmHg SpO2 96 % 08/02/2021 7:55 EST Heart Rate Monitored 97 bpm Respiratory Rate Monitored 12 br/min Systolic Blood Pressure 107 mmHg Diastolic Blood Pressure 74 mmHg SpO2 92 % 08/02/2021 7:50 EST Temperature Temporal Artery 36.5 DegC Heart Rate Monitored 97 bpm Respiratory Rate Monitored 20 br/min Systolic Blood Pressure 107 mmHg Diastolic Blood Pressure 74 mmHg Blood Pressure Location Left arm SpO2 94 % 08/02/2021 7:45 EST Heart Rate Monitored 92 bpm bpm Respiratory Rate 20 br/min br/min Systolic Blood Pressure 134 mmHg mmHg Diastolic Blood Pressure 91 mmHg mmHg SpO2 97 % % 08/02/2021 7:40 EST Heart Rate Monitored 100 bpm bpm Respiratory Rate 20 br/min br/min Systolic Blood Pressure 101 mmHg mmHg Diastolic Blood Pressure 83 mmHg mmHg SpO2 97 % % 08/02/2021 7:35 EST Respiratory Rate 20 br/min br/min Systolic Blood Pressure 144 mmHg mmHg Diastolic Blood Pressure 93 mmHg mmHg SpO2 96 % % 08/02/2021 7:15 EST Heart Rate Monitored 92 bpm Respiratory Rate 18 br/min Systolic Blood Pressure 147 mmHg HI Diastolic Blood Pressure 89 mmHg Blood Pressure Location Left arm SpO2 95 % Vital Signs (last 24 hrs) Last Charted Resp Rate 20 br/min (AUG 02 08:15) SBP H 142mmHg (AUG 02 08:15) DBP H 102mmHg (AUG 02 08:15) SpO2 98 % (AUG 02 08:15) Weight 98.4 kg (AUG 02 07:15) Documented vital signs Pain assessment: Pain Assessment 08/02/2021 8:15 EST Numeric Pain Scale 0 = No pain Numeric Pain Score 0 08/02/2021 7:55 EST Pain Symptoms Self Report No, able to self report Primary Pain Location Abdomen upper Numeric Pain Scale 0 = No pain Numeric Pain Score 0 . General: Alert and oriented, No acute distress. Respiratory: Lungs are clear to auscultation. Cardiovascular: Normal rate, Regular rhythm. Neurologic: Normal sensory. Review / Management Condition: Stable. Assessment Anesthetic outcome No anesthetic complications noted. Adequate pain relief. TOLERATING PO INTAKE. voiding w/o diff.. No Complaint of nausea and vomiting. Plan Transfer/ Discharge: Condition stable. Normal [facility] Comment on above: Result Comment: Elec tronically Signed By: Ishmael Torre Jr, DO\.paco\Date and Time Signed: 08/08/21 16:49 EST IntraOperative Documentson 0 08-06-2021 IntraOperative Documents [id number] 0CD:127 Normal [facility] Coding Summary.on 08-05-2021 Coding Summary. CD:[id number] Gh 0bWw+PGhlYWQ+HD1IUDIuN 76enXMitU1OZ9oCOJ8BVFE RCIVKKC1FPO6yzEY7PPdwB 2VybiAv RkfzoNBoQC05SId5UTH3oV ltXJhajA6oxAXcH6r8CgRc XW67eX47YSbtFOPxHyF5Gv ZpbjsgbWFy K2nbIzEfgKCbOdq+PHRhYm xlIHdpZHRoPScxMDAlJyBz pLuxUT7wFk7zNGMnRPTloD xhcHNlOiBj g8pgSYWiSNjmXN9slWuxV9 KtuJL6XKIka4v8Qj54rZM+ IWPnLIS8yUurCXucl365Bn Qnf4caRYF8 lHXoSAfzNBB1Z66hf4J9IM XzYQCsULX2uHP2nJ6ltAdl zkocR9EorEUrCrZ3WGS9gT TcrB6haIsw ksugdT2tSaw+G74DSF4ZGI QWGW9SLuq3E4EeNbuniSL+ TV02VXWgCU50cRTkdAOti3 xbsRs6MzYk KEEnSHC1mCjzTVgzs6CjJP LtU61phQFgz0R5NQNprAin mJGrIpVohYE6qX9wNBaixk qih6xwzzqv Hgksm7xkwj86fR59L07fSQ mlDHEkJXW7VWMnTCEgfDpc gi9ibY1eHd9+RQhtn1elh2 qgnPk1JeUc YVKjyvIeyQunYZL2t8ZlCs 34B1EquYblf4RbXiu5ip60 jITyn7I2zCJ5ONbbJWBaxP 7wEDfuTbU3 ILXfWiKmbN96tEAuLScdKg 2soQnafHgvBO8jWSKylgyu BRIxxX2vTKWbbPFhcQjbMG 4wNTBpbjtm q289BtEoFQL0ULWenKVkD7 GazW5xXfDkIODqEIMqQ6At dOQgYOdnO975VVjyMrH2HA WmerPqU2Oe YWMxhHbzXvZ7v8G4Eo2Jf7 DijllcFVN5BEzoNTBtKyUt MsOgWmS8K3AvHre0AKPdpC ymTL9mC8Wh IDCwfshqebzckDI8LCRbXL RiuE79pHIvZVhwOw6yb6Z4 v955KBIiUPKtaH24Gf7vdL ogMTBwdCBU cP4dzlnkb0oowtdkXnDtCP VhKEn1GSb3ERKxxIxbJdRs EKB6KzT8QEG9sFHsgC3pgB xpikzxkO9d Oyc+P41grS1jTSM0SPU0tm niNHSpahOsVM29EV61C6Pt PjwvdGFibGU+PGRpdiBzdH mpRW2jIzOe a6qnm0WbVEaeM1NfFHSdAM ttWev2LPMoVKU3xTT1jG3e IAYvQPacu4A1rEC7O4Nkxl Kqij6vt5hq UTOfFZddS81weSWpx9P7JS RdoEG6STMcdAdtLsZusM69 Oyc+VOHjzIxfv8YgWxtkj1 tuz2qciLr1 KuKtPXRvuiLbhNlfVFV5m6 MmKs77N63eIPujMEFpSTKc XNZjDIYdjKnbju3dsB6dJf 8+PGNvbCB3 vRJ5yG4yGLAkOlL6HOhwE6 48EaVnaLJfYbiiy8gxa0oa qDt5ZwTrJODkjdBloDpxDB M1e8XhCx92 Q90kHOswVGMaMQKpGISlEZ AkhYxvwx0evI9tNc9+PC9j y3btps19bR76tCF+PHRkIH D7vQjpHCts DOYsoM8wILadVuC6HNUpEm JfzS27gEUcVGkbEp3muUtv qVoqBA3mMFYkshfcs964Ew Ekq0dyJCAx pQVlTHfsDJK2A88pv7G4OH MrXZPbLLD3vKG1dM2qbBss bjogbGVmdDsgdmVydGljYW poRJqpB611 IHRvcDsnPlBhdGllbnQgTm CaJDf0U2DpBzb7PDMiwNwz WM0wpKTxBMstJr6tpSbcbS jaFO7dOYBc kavqm736LmCpb0hdXUYutU QmNVuxOGG5J78up6T1FCSj UIXsYAI9eVK4gD9bbGbhik ogbGVmdDsg srRtiNipKGjwUJnzQ583VH RvcDsnPkJpcnRoIERhdGU6 BF12VF21vCWzg1M9bPN6E9 BhZGRpbmct znfogVO6FFGgTFNtoF51Lq 2zyZdfAs5uWILgGWC4XWHa sYSiR1EadN8wAyVpLLHnPY HbJ3NvmGVh HGofI307EBtfWnJ4RHUdje VqG4LyBRWuuRvpDzP9q7E3 Qb1ZH8R5QH61FL33lTUqk4 O4rYJ0N2Xf DNZwinywqvneeRM1GFVmIX XozB05Aq7iuZpmGt7hKYCq OXC6CVLitGFwZ2NgiJ7zUo AjMDAwMDAw J4EalIIeABmgK159XZszLt Q2FNXgetOjM6GfEESvtMhl MpJ5r5M1Vo6GHLa7AG02GH 74iVGjk9U0 cKZ0U7PeQDOhqmlsuvouqE V8JKJxLIDepE81Pr0tbQtz Kc3hGYNpXRK5MQAmgZPfL5 DpaP5vKrMt DFBjLTBrW3YulBYtZGjxL8 94TXbmXhS5AWIkpaEiY1Ow MWMgpDouCsF2r5O7Ai2QHL EcVC08IVC4 dKW5LR68NV06U2EuNcgrrG FibGU+PHRhYmxlIHdpZHRo XCgfLPByXjUtqZfdNA5oKt 9yZGVyLWNv gEfjvMMvXuGnx3daTIHrYP haXR0jsQpcF4BcbXG3UARh i0g6Kd56T12fN2NusYQ+PG AfyEJ7nAF5 oI7wFpBiQyH0QDfyO754Bs NodVYiSbvcl5cdt4jvgPz1 AnH8NKOzfeGzmNaxNRL6b5 CuGu18C14w IHdpZHRoPSIxNSUiIHZhbG lico7esF0mCj9+PGNvbCB3 xZI4dU1uPqSoWoM9PAuqL9 49InRvcCIv Hpetd4zeu7xvpRg1QeEyCM JjuqWhfEnwJFT5t8MjGa93 Z0NmkEywt3OjBgf2vn00qE Veb2G1qXS2 O6OwHOBodecipDSriHorFC 1yNBZnzumxYEXvdX8rNNYp M0k4YuVdLeT9NMyiC8Avze A7RTLicYVz FBmsYMJ4H25pq7E9YXIqUA VzIXA4sZK7oH5qeTyerwev bGVmdDsgdmVydGljYWwtYW ruY047QRJv uZsrBRLlhY5wYLAnwQZhyT qeUA4uETIwanliQxASM3EG RECCLIEGGyTXUS29QF59xJ Eyk1C8lJM7 W4BvWFZrhbxevhzxlNO4MD GjXXPxpE48kNJmCBjlYn0s w2A2o908LDXeNEVkeO96Uk 9udDogMTBw rOEHgV6iplwyt5mtgefeBn NjNQAdDZf1WJv3FEWkgVfv UoOfGAJ2SyX7MFW1zTPxfD 1hbGlnbjog pP7oCna+GJEmGgWfJRn8IY wvdGQ+PGQhHMK8dVeeHCtq USRjeL7lRIAcL7w2LcPkNr X8HNqzT1Rq ECTogsjvAg05lH9aWeFfRb B6KVyyK2GydnD4HBIipLSk NPccQPM5Z78rk5K7YRVcRR VeHWW3zXK2 nP9amAsipznxzKUmoMtnfe LsmDvfFGxrKOlwS707IKNk zPanEfCnGQjnQDKzPM92MK 26hZKjt6D0 kRZ4N4LnJOQeatkpuakeyG B4MHFiERXbxR12yIBzMWps Tt6rd5Y8c297ZKUfOVYvcI 29Cx0zxSuz OFHxdBPUjU3bafhwy2wfbi jaHdKmUQNuWBg5XUn7GHFh yDyrQiIrUFS0JiO3ZZV9fK RkoY0hjFsx imeegN6cGsb+TWFsZTwvdG Q+JIJgYPC5yQfiHZzeHBIk oT2rKEXfX9q0BpSmSuW9IK qvO1VyJTOh tzegDu18gI2sUfZqDwJ0UQ waB1AcvcG1BZAswTHeBPlk ZBT4R34hf4A4GUCvNBSaVT T9gHE2xX2g bGlnbjogbGVmdDsgdmVydG qjWEeiCLyyA447QSUyeTjq Bz43yRIfwBcchqJ6L8MeNh wvdHI+PC90 ANQcAH82yBHnxHSvi7xliS p4QsNcFHXkJNU9iDdbNHpv p2JiLJGmD76ioGFul0O5MD NvbGxhcHNl YcFalNP9yS1yHVbwnndro6 hxjoytMjrpy5cbye11kJ41 S34pXEzwFOGqCEKkQZSnLW HduJewal7c tL0vKe1+EDYdhQR0tYE3pY 3zDmCyJnO9IKwoH222MyRr vNTyZvwqw9qgm0dgfLa9Ug IwJSIgdmFs zZlqWSL1r2WgOh62S31wDW dpZHRoPSIyMCUiIHZhbGln tp4ejV6gFz8+AC6tt7tlzs 16yX63bUD+ HDUiRRS0zUvtIWjvLGIjiK 9kCRyiKdF2IJImIhJzwT64 gBCbZPnbCw6yfJevxCgxNP 4wNTBpbjtm w654AlHpy0qjNSKogNRvDO xwCTS0B18fr5I8EVJnUHXf KJK2aCI8vZ0ktQrptjylqM VmdDsgdmVy pEjrYHgpXCyyR940DFQkdC krBdKacWWzD3vxweCFWR8d OjwvdGQ+NWBvPLZ6yXchXR fmTNLfoS2u XXOfS1l1CrHmHlX2SLicI9 DthoE9FUJqkLAnOKTetEES uR9zyfqlu8huvxbzQxZpYH OyCEa6OOt7 KKOenIcmCuBoUYT0JqU7PS N5bOPeaI8eoNjinqhqyV8s Oyc+RklOOjwvdGQ+PHRkIH I6aTimSFwv DMJwyH2rOFYpO4q1GePcRs I9REwuG3AoziK5LPDloCRm THJqnPYMxF2xhogil0bbsv ogIzAwMDAw MIm7DZb0LVCtxCpoOuIzLN Z6FkM3WJA0gPUimB7epLqu itgazB2yFtk+TVJOOjwvdG Q+PHRkIHN0 lOhrIDzaBKOerT7fBZCzS1 m0DvIjSkY8JPapS5EeecH3 ITSxjGEuGUZhbCLDmM8nlf hhb9szlxup DwVwFCLfAGh6DGv5AQOudR ilMkGyTYM1DqT1VTR4dNJr mH6dnZaegbxozX7rQtv+UG M0HCJ6OJ08 MD45R3XjCyxjrUSliIO+PH RhYmxlIHdpZHRoPScxMDAl WwUqxVjnCN5pXg0nVFAtYO NvbGxhcHNl OiBj (more content not included)... Normal [facility] Coding Summary. [id number] Gh 0bWw+PGhlYWQ+IG4LPZCkX 80rnZNliS6DE5oKBR1NQQV CRCELFH9YIX1atYV0JWdrF 2VybiAv RkiqrVVyLX62PWs8DEV4gU thOVmceC8jrWRzT6f4AkNa OX06tI13SBwaNGKcHfG6Wl ZpbjsgbWFy Q1xmGsBbbLVhLqs+PHRhYm xlIHdpZHRoPScxMDAlJyBz pGprZT6nQt1vZUDnBDZklG xhcHNlOiBj b9ytDXUqRAjgIY8ffIbkX2 FekDI6JNVke8d6Sp27jXG+ KCCnHCJ5cUfdTZofp080Rc Aei7doVAP4 sDLuTCiiAWO1H64ed3L2NL PnDSPyFIE6rJY1aB7tjYia kjspG2TcvRRfIaY0BZY0vV ZyeT2weHsf tjcyzP9eBdc+U56KYZ5HMP SHVK5SIze6X0XgMfvroXB+ GD28FMRrSL13qSFnoIMat6 xreKr0QjYt KOSaMIV2aKgnPPtag5LjAE OlG53grVYqo8G4YKPqyLzx qNJjJhGccMZ1qJ4jRFxbdp hun6arfwyz Rkuxa1mhpg50lP12B60wKB bjURIoPDH0UVDpYLZxkTek da1nwJ6aJc5+XDaqd0zru9 qadLi6WqQg EMPhjnSmrFqzHKU1y9SqHz 70G9BmoQhqk6AhLvs5zv69 nDJcw4T7nDI7ZQnqLJCfvT 9tMUzjDlS7 EMIpWvYalN48gWLoPDpyBw 4wkBfubUbmVI7vUZPkehkt VZYohG9bHQHumOUgzUvoUS 4wNTBpbjtm z851GrXlGOU0BXOjkNYgN5 XhlQ6nPgWjKIMaCUYcA6Qh aQBrTRrtB893ZPsiZlY6OD LvdlPuX7Vr TKIauSduNfP4g5U0Rp3Zb2 RvzrksITS1AMraGEBqBgUy XzXhMiJ9H7OjCca7IZJdwH xsTU1gI5Sg DHWbkbtkfjrmlFN6FYFvMH DxkF81fJYuTTggEu9fx7V6 o487BRBlUMRkvS84Ak3vuQ ogMTBwdCBU bO2qvgdrj3wwxggcKrSfWM SaHXr3SCj1SAUffSwaThJy CMK1EyK6QOL7gIKkxD2frA rmqdhkjF1k Oyc+A17hqB4mXVK8GMJ9oe wxCPPsfgYrNA09QY20P8Ve PjwvdGFibGU+PGRpdiBzdH ifOC4aLdAf y6gql4AlWKnsG0SrSGWsSI wtUza4LSJcWWR6iST3fE0c SVRmBApua7E3dFD6G0Hpgb Akyp4bu2sd GAOlJJxdM37pjLYgn2X7TR ZtiVP5HXTdiBtcDhNipD75 Oyc+LHCkdDdjl8GzFffti8 ami7xaoYv1 ChWrQTCwjrUgvErrQZG5e6 MwZq82W36sWBftWRZeFMKb WUTaQHVwbCwivl7ryO9xUt 8+PGNvbCB3 rAT1bF8rCOGsQzY1SQejK5 19AuTbwSDlFxawu4liz4il nGg3XaUlECWmiqLwhAyzTX N4z9NrWg44 J03mPZmlVLRhWXKcWTFqKT GnhHtlxg2ffL3wUt7+PC9j w0ainx87zK42gYI+PHRkIH X4uVkbQQwt NBNwvI9wQUdnFzL7WBKqNq FiqO85uIUsIFwzFu7jpNhj aJyoEZ8wRIVqpmbtz235Hx Tfu3zcLACa gLHdJZvwOYM5Q78st0G7MO KaJFWnWAT5rHD7pY0kkQsa bjogbGVmdDsgdmVydGljYW uiMCcnD547 IHRvcDsnPlBhdGllbnQgTm WcTDg6I6MkZjj4LOPbyEjf SH5vnZCrQSxfAl2vmRwjgV blOH5lKDSt dzedl919GpHfj9ciRVZzxB DbXSiuDEA0W14om6H1THSs JXRmHMA2gFX9mX4duWagus ogbGVmdDsg ixDerGrjMBisMVbgU052SW RvcDsnPkJpcnRoIERhdGU6 MA14VH49mXYdi0X9cGE2L9 BhZGRpbmct egbebKN5EIDoNWClaK63If 9fcFwcWn9zLLMjXKP5OJKw iNStJ4NkxL1zUkIzWDLzRD HbI5JduSZy WQnwH252WAsfPeR9BEMpzh PrM0SbFKFeeRbeVyN0x8E3 Xb6GT1F8YX66NT70lJYoo1 M5qUW5I1Ee MCFxftdxqxyqtJM8NRZtAW XteL35Ht3oeMsrIp7gLCXl GNS3HMIrvRFyM8AbsP4dZq AjMDAwMDAw O6WouFZsZFviS535TIkqTj T4ZDSvzuRiV1HqWRDygLxy UlR3v9A0Dg5ZITt1NF13UI 40uDEro5K7 bNM8E9AeRMLufqyqsbvwyJ V9RRGhKFOmbD75Xm1qmFps Ea3rBLYqERY1ECBydZKsO2 LivX9bEaNe JSCkOXGwJ8ZuiHBwGFqaP7 39FOkcRxJ9QSJykrFuO6Kf OSRwnWoqJjT7z5H4Vz8VVV VbTO22KSS4 kTE4NM90WF12T9IjUwupjE FibGU+PHRhYmxlIHdpZHRo BNzdNQNwOcBqtRybWC6gCq 9yZGVyLWNv gCwkpCXvEzTie1ciFSCvDJ xcKW7fhThjD7RjeLS8BORq u7m8Ax81P73rE1TfoVQ+PG TwaLS8eLW3 sD1wUhJfJtC0EOozF928Zw OdwLJlAyzzz6cqd3ftfTb5 AdV9RPBovqKnyJqoPZK0i3 WyBb83I36j IHdpZHRoPSIxNSUiIHZhbG ntpb6doX4rIj2+PGNvbCB3 qNL3iW3pSdKbIvM8FWrjU5 49InRvcCIv Kbhvz2klq3picYd0SlYeXX YgakNyjZtgAMZ5n7RkIi06 B5IguIgvs8HhAcl7ax63zM Oqt6F8iBW6 W4DpQJWrmlijbUSmzRpoPP 3vGNDqwixlJSKyvX7bTVVu C5d3FzXmUoB8ABxrL1Ifpx T7JELjnZEk EZolIAH5Q28tu0O1XJHgWC VdVJF0qQP4zC8krPpfuznp bGVmdDsgdmVydGljYWwtYW btW254SYRb tPdoLNDajN0rFZKlhVOznW hsGS9sPQGaypmcWxFAM5XY WRVPUVPKHtSJLR72CY43jJ Mbr8T3pTF9 Z5PpTUWgfucseocetSE7NL YeTXCbeP71hCDwINhtIi5x n6S7a421RWQqPKLtaT11Ne 9udDogMTBw mPSIzG4vixnry4jbjgjqXo RjIRIgILh8ECo3VPKbwSyo YeTyHME9WpK2DFY3gNSetI 1hbGlnbjog qE4cVmo+DITkRiWcFXd4JM wvdGQ+LUKjCDU7xQovTZms EGTlgH1iRSJqJ9q2GqKgKw A2OBbqL3Zf KKLifqlbQz04wH6nZyAzUr H6CZleJ3YqnzB8QSXdwTOo LNvgQHB5Z79ms7L1TKUaGV GmSVC4bHO5 iO1blEdsnkzalBUjqDoqrw GhtNdxCOsgPPdqU960QXJb vZvaBsOlHRgqGDGqOY95TH 71aOZhd3D5 fTP0Z4ArGQAgbhrlcjmwsP K7FSWqCZAcxU03yLDsBJhh Pf2lx7O8e287KDRqFKVvfX 35Qk4amGri PPSeiIBCcO6hxynzc2nplt cuJgJiVJVpUTb0EYl5TGPh hGhrKxMlQVT4EaU7AQI8mR OktO3zgPnf mzluaE6hCoj+TWFsZTwvdG Q+YIRoWQL8zLnaJKejWBPv hO2rFLTgC4c5WyNrBaQ5JT bnY2GoSCAb sclnTy32qH5wPzGxJoM3FM fnQ1BdhzT4NHWosJIdOSqe CZW8Z44xj4X2APYuDBIwMW N6qGO6lW4a bGlnbjogbGVmdDsgdmVydG doYVnsEAclE783SUUfoOrg Ka08rWSwlSehjsS7Z9FcRz wvdHI+PC90 HKMqLA44wWPivBVuy4goiH n6DiAgSBLmUOD0cSosFSqi o8OqIZHpN03gkSGli5K9RU NvbGxhcHNl YhWbnMA6vF4wDRjqpnlwc6 vuvdewYvtul8lsjn62gR56 L23fSPdzNXBwIEFbZSZoED RugEzaoj2c mI5uPi1+QIPsiSU9jNM4hI 6uJqDoQfC6PWqiT027FkCp zUTqYewdg1etk7xzyXq9Ze IwJSIgdmFs lJkcIJL7h7NhAb37V00vLI dpZHRoPSIyMCUiIHZhbGln tk6tdP3uTb2+OX4ee2cyva 69hI64yKS+ LGJwMCM0yAkcDTkqJODhpC 5dAQnkBmG7TCGzEfPawG54 tDYxRIeuFf2opOcxcMdkYM 4wNTBpbjtm d232OyWgs6huCIWmkGOfRI ipZLM2O57pp8M2VPMnEOOa DKI9tIO2sZ8hzBhrqaojuK VmdDsgdmVy zEgeAGxnVFamB358KYSjsT vpHiDzkHDkH3zwoxYOJF7y OjwvdGQ+ZGGtKTE2kQehWN jeLEHdjW7h RRVsX7h4UgGeVcZ8ABxmZ1 GmtnJ0RTPwqHQjDFWodILG qP8mcnucc6btapkxHqPsJX EyVUx0KBy1 WMMdpHpzHjIoAUB1QaA1JM J1aIRbrI2joZxrcshhiO3n Oyc+RklOOjwvdGQ+PHRkIH Y2uUqwWRrs BEWdjU8mFJGuM8g3XbJyQs R3NUqtY8XdpyV1QXSmtCGq COHfiFMMaM2qtgfds5tafv ogIzAwMDAw MQx6EPy6FPZfgLhiJlOmCR M2LnE4VIF6gSPaoW2ngPzn rxgwxB9bSpl+TVJOOjwvdG Q+PHRkIHN0 fCrgASxuVLIurG0fRHSwF3 b0NrCeFuZ2JNfpC0NazuS8 KJPqgIRkYVHcnUHVrF9hmd amx7mcgybb NfKqRHRlWNt3ARy7DTJspT wkIeFvEKA8IxI7MPM7mDQv jK2oyFwblltuzX0nHur+UG G5XDV0ZP63 TT57Z5LcJllrtHFusSP+PH RhYmxlIHdpZHRoPScxMDAl HbFevLicBK5yHc8dBOOlBC NvbGxhcHNl OiBj (more content not included)... Normal [facility] Intraoperative Recor don 08-05-2021 Main OR Intraoperative Record IntraOp Document Type FT Summary Primary Physician: Herbert LEWIS MD Finalized Date/Time: 08/05/21 09:52:34 Pt. Name: JEFF DILLARD/Sex: 1970 Male Med Rec #: [id number] Physician: Herbert LEWIS MD Financial #: [id number] Pt. Type: O Room/Bed: / Admit/Disch: 08/02/21 06:50:47 - 08/02/21 23:59:59 Institution: Case Times FT Entry 1 Patient Times In Room 08/02/21 07:34:00 Out Room 08/02/21 07:49:00 Procedure Times Start 08/02/21 07:38:00 Stop 08/02/21 07:47:00 Anesthesia Times Start 08/02/21 07:34:00 Stop 08/02/21 07:49:00 Time at [place] 08/02/21 07:42:00 Last Modified By: Matthias Raygoza RN 08/02/21 07:49:50 General Comments: 08/05/21 Chart opened to review and send charges [facility]oth CSFA Case Attendance FT Entry 1 Entry 2 Entry 3 Case Attendee Landon Turner CRNA, MD, Herbert Raygoza RN, Matthias Porter Role Performed CLAIMS ADJUSTER Surgeon - Primary Story Analyst - Primary Time In 08/02/21 07:34:00 08/02/21 07:34:00 08/02/21 07:34:00 Time Out 08/02/21 07:49:00 08/02/21 07:49:00 08/02/21 07:49:00 Procedure COLONOSCOPY(.) COLONOSCOPY(.) COLONOSCOPY(.) Comments Last Modified By: Joel SULLIVAN, Kate Raygoza RN, Matthias Mendes RN 08/05/21 09:50:34 08/02/21 07:49:54 08/02/21 07:49:54 Entry 4 Case Attendee Tonia Narvaez Role Performed Scrub - Primary Time In 08/02/21 07:34:00 Time Out 08/02/21 07:49:00 Procedure COLONOSCOPY(.) Comments Last Modified By: Matthias Raygoza RN 08/02/21 07:49:54 General Comments: MARCE SQUIRES, MEDICAL STUDENT, SCRUBBED IN FOR CASE. Perioperative Protocols FT Pre-Care Text: Implements protective measures prior to operative or invasive procedure, confirms identity before the operative or invasive procedure, verifies operative procedure, surgical site, and laterality Entry 1 Procedure(s) COLONOSCOPY(.) Patient Identity Birthday, ID Band Verified (select at Check, Patient least 2): Participation Consents / H and P Anesthesia Consent, Operative Site N/A Verified HandP, Surgery/Procedure Marking Verified Consent Surgical Site Yes Laterality Verified n/a Verified Procedure Verified Yes Correct Patient Yes Position Verified Availability Equipment Prep Dry n/a Verified (If Applicable) PreOp Antibiotic No Time Out Landon Turner CRNA, Given Participants SONIYA MATSON, Idalmis Douglas RN, Brice Kim Kirstyn K Time Out Complete 08/02/21 07:37:00 Outcomes Met? Yes Last Modified By: Matthias Raygoza RN 08/02/21 07:40:06 Post-Care Text: The patient is free from signs and symptoms of injury caused by extraneous objects Allergy Information FT Pre-Care Text: Verifies allergies Entry 1 Allergies Reviewed? Yes Allergies Reviewed Self/Patient With Outcomes Met? Yes Last Modified By: Matthias Raygoza RN 08/02/21 07:43:00 Post-Care Text: The patient received appropriate medication(s) safely administered during the perioperative period Surgical Procedures FT Entry 1 Procedure Description Procedure COLONOSCOPY Modifiers . Surgeon Description COLONOSCOPY Primary Procedure Yes Primary Surgeon Herbert LEWIS MD 08/02/21 07:38:00 Stop 08/02/21 07:47:00 Anesthesia Type General Surgical Service General Wound Class 2 - Clean-Contaminated Last Modified By: Matthias Raygoza RN 08/02/21 07:47:59 General Case Data FT Pre-Care Text: Classifies surgical wound, implements aseptic technique, initiates traffic control Entry 1 Case Information OR OR 3 FT Case Level Level 2 Wound Class 2 - Clean-Contaminated Specialty General ASA Class 3 Preop Diagnosis CHANGE OF BOWEL HABITS Postop Same As Preop Yes Postop Diagnosis CHANGE OF BOWEL HABITS Outcomes Met? Yes Last Modified By: Matthias Raygoza RN 08/02/21 07:49:57 Post-Care Text: The patient is free from signs and symptoms of infection Skin Assessment (Pre Procedure) FT Pre-Care Text: Implements protective measures to prevent skin/ tissue injury due to thermal or mechanical sources Evaluates for signs and symptoms of physical injury to skin and tissue Entry 1 Skin Integrity Intact, [place], Warm, and Skin Abnormality No Dry Outcomes Met? Yes Last Modified By: Matthias Raygoza RN 08/02/21 07:42:56 Post-Care Text: The patient is free from signs and symptoms of injury caused by extraneous objects Patient Positioning FT Pre-Care Text: Identifies physical alterations that require additional precautions for procedure-specific positioning, verifies presence of prosthetics or corrective devices, positions the patient, evaluates the patient for signs and symptoms of injury as a result of positioning Entry 1 Procedure COLONOSCOPY(.) Body Position Lateral, right side up Feet Uncrossed? Yes Left Arm Position Resting at Side Right Arm Position Resting at Side Left Leg Position Extended Right Leg Position Extended Positioning Device Safety Strap, Pillow Under Head Large Press Points Checked Yes (more content not included)... Normal [facility] Progress Note-Physicianon Progress Note-Physician Patient: JEFF DILLARD Age: 51 years Sex: Male : 1970 Associated Diagnoses: None Author: Ishmael Torre Jr, DO Preoperative Information Anesthesia Preop Information NPO 8 HOURS EXCEPT GI PREP AT LEAST 4 HOURS PRIOR TO PROCEDURE Anesthesia history: Patient history: No prior anesthesia problems. Re-evaluation prior to induction: Initial evaluation reviewed: No significant change. Anesthesia results Review of Systems Cardiovascular: Negative. Respiratory: Negative. Health Status Allergies: Allergic Reactions (Selected) No Known Allergies No Known Medication Allergies Current medications: (Selected) Documented Medications Documented albuterol HFA 90 mcg/inh MDI: 2 puff(s), Inhalation, q4hr as needed for wheezing, Refill(s) 0 fluticasone 0.05 mg/inh Nasal [place]: 1 spray(s), Nasal, BID, Refill(s) 0, Allergy symptoms lisinopril 2.5 mg Tab: 2.5 mg = 1 tab(s), Oral, Daily, Refills(s) 0, High blood pressure nabumetone 500 mg Tab: 1,000 mg = 2 tab(s), Oral, Daily, Refills(s) 0, Inflammation, Home Medications (4) Active albuterol HFA 90 mcg/inh MDI 2 puff(s), PRN, Inhalation, q4hr fluticasone 0.05 mg/inh Nasal [place] 1 spray(s), Nasal, BID lisinopril 2.5 mg Tab 2.5 mg = 1 tab(s), Oral, Daily nabumetone 500 mg Tab 1,000 mg = 2 tab(s), Oral, Daily Problem list: All Problems Abdominal bloating with cramps / SNOMED CT 348509388 / Confirmed Change in bowel habits / SNOMED CT 546012988 / Confirmed BMI 33.0-33.9,adult / SNOMED CT 894774090 / Confirmed Diastasis recti / SNOMED CT 169669866 / Confirmed HTN (hypertension) / SNOMED CT 3846150870 / Confirmed DAYAMI (obstructive sleep apnea) / SNOMED CT 554359117 / Confirmed Smoker / SNOMED CT 535035833 / Confirmed Tobacco use / SNOMED CT 982362274 / Confirmed Umbilical hernia / SNOMED CT 8286161680 / Confirmed Histories Past Medical History: No active or resolved past medical history items have been selected or recorded. Social History Social & Psychosocial Habits Alcohol 06/08/2021 Risk Assessment: Denies Alcohol Use Substance Abuse 06/08/2021 Risk Assessment: Denies Substance Abuse Tobacco 06/08/2021 Tobacco Use: 10 or more cigarettes (1/ Smokeless tobacco use: Never Type: Cigarettes Tobacco use per day: 0.5 Started at age: 17.0 Years . Physical Examination Airway: Mallampati classification: II (soft palate, fauces, uvula visible). Respiratory: Lungs are clear to auscultation. Cardiovascular: Regular rhythm. Neurologic: Alert, Oriented. Plan [employer] Anesthesiologists (ASA) physical status classification: Class II. Anesthetic Preoperative Plan Anesthesia: General. . Anesthetic plan, risks, benefits, and alternatives discussed with the patient and/or family. Communication: face to face with (patient 5 minutes, Patient educated on smoking cesstation). Normal [facility] Comment on above: Result Comment: Elec tronically Signed By: Nicho Stokes DO, Ishmael Serrano\.br\Date and Time Signed: 08/05/21 10:25 EST XR Chest 2 Viewson 2 XR Chest 2 Views Exam Date/Time: 08/04/2021 08:33 EST Reason for Exam: pre op Report IMPRESSION: NO RADIOGRAPHIC EVIDENCE OF ACTIVE DISEASE IN THE CHEST. CLINICAL INFORMATION: pre op hernia COMPARISON: None available. FINDINGS: Two views of the chest were obtained. Heart and mediastinum appear normal. The lungs appear clear. Bronchovascular markings are increased bilaterally. Visualized bony thorax and remainder of the chest appears unremarkable. FINAL REPORT Dictated: 08/05/2021 9:34 am Malcom Valles M.D. Signed (Electronic Signature): 08/05/2021 9:34 am Signed by: Malcom Valles M.D. Transcribed by: MANUEL Technologist: STACIE Normal [facility] BUNon 08-04-2021 Urea nitrogen [Mass/Vol] 7 mg/dL Normal 5-21 [facility] Comment on above: Performed By: #### 1 [id number], 2327865, 9487562, 9342679, 5682385, 9060507 ####[facility] [address] [place] [address] CBC w/Indiceson 08-04-2021 Erythrocyte distribution width (RBC) [Ratio] 13.7 % Normal 10.9-14.2 [facility] Comment on above: Performed By: #### 1 0758644, 1794257, 5180000, 0366816, 8169094, 5060002 ####[address] [place] [address] Hematocrit (Bld) [Volume fraction] 42.1 % Normal 37.7-49.0 [facility] Comment on above: Performed By: #### 1 7501540, 2585309, 5894596, 3656354, 2944974, 8613275 ####[address] [place] [address] Hemoglobin (Bld) [Mass/Vol] 14.6 g/dL Normal 13.5-17.5 [facility] Comment on above: Performed By: #### 1 6171126, 8873811, 3755196, 3357122, 2240928, 1077317 ####[address] [address] MCH (RBC) [Entitic mass] 32.7 pg Normal 27.0-34.0 [facility] Comment on above: Performed By: #### 1 2843263, 7492505, 0117609, 0475285, 9157089, 5875846 ####[address] [place] [address] MCHC (RBC) [Mass/Vol] 34.7 g/dL Normal 31.4-36.0 [facility] Comment on above: Performed By: #### 1 6273591, 1846601, 0462552, 4774864, 1937383, 1670113 ####[address] [place] [address] MCV (RBC) [Entitic vol] 94.0 fL Normal 80.0-100.0 [facility] Comment on above: Performed By: #### 1 9397936, 8769745, 3315572, 4706616, 7024187, 7507021 ####[address] [place] [address] Platelet mean volume (Bld) [Entitic vol] 8.1 fL Normal 6.4-10.8 [facility] Comment on above: Performed By: #### 1 0606830, 5652255, 2496122, 7218248, 3423623, 5552974 ####[address] [place] [address] Platelets (Bld) [#/Vol] 300.0 E9/L Normal 150.0-500.0 [facility] Comment on above: Performed By: #### 1 6422305, 8659109, 5556239, 7044490, 1398103, 0331130 ####[address] RBC (Bld) [#/Vol] 4.5 E12/L Normal 4.3-5.9 [facility] Comment on above: Performed By: #### 1 6843735, 6733435, 4935241, 7730316, 9849066, 4645605 ####[address] [address] WBC corrected for nucl RBC Auto (Bld) [#/Vol] 9.0 E9/L Normal 4.0-11.0 [facility] Comment on above: Performed By: #### 1 7948057, 4467159, 0616709, 3373807, 8136614, 5301784 ####[address] [place] [address] Consenton 08-04-2021 Consent [id number]#1.0 0CD:127 Normal [facility] Consent for Treatmenton Consent for Treatment [id number]#1.0 0CD:127 Normal [facility] Creatinineon 08-04-2021 Creatinine [Mass/Vol] 0.8 mg/dL Normal 0.5-1.3 [facility] Comment on above: Performed By: #### 1 4287621, 1622485, 7590544, 8049471, 5760852, 8845079 ####[facility] [address] [place] [address] Discharge Instructionson Discharge Instructions [id number]#1.0 0CD:127 Normal [facility] Glucoseon 08-04-2021 Glucose [Mass/Vol] 94 mg/dL Normal 55-199 [facility] Comment on above: Performed By: #### 1 5566755, 4963137, 6745738, 8630441, 5969610, 0999472 ####[facility] [address] [place] [address] IntraOperative Documentson 0 08-04-2021 IntraOperative Documents [id number]#1.0 0CD:127 Normal [facility] IntraOperative Documents [id number]#1.0 0CD:127 Normal [facility] Lyteson 08-04-2021 Anion gap [Moles/Vol] 13 mmol/L Normal 6-16 [facility] Comment on above: Performed By: #### 1 7950277, 7440609, 1148937, 8694016, 0641301, 2900512 ####[facility] [address] [place] [address] Chloride [Moles/Vol] 98 mmol/L Low 101-111 [facility] Comment on above: Performed By: #### 1 2409420, 7566705, 3862864, 1919780, 0319553, 1731200 ####[facility] [address] [place] [address] CO2 [Moles/Vol] 29 mmol/L Normal 21-31 [facility] Comment on above: Performed By: #### 1 0077739, 7721228, 1494119, 7991387, 4844388, 9761610 ####[facility] [address] [place] [address] Potassium [Moles/Vol] 4.7 mmol/L Normal 3.5-5.3 [facility] Comment on above: Performed By: #### 1 5360883, 0238895, 0873857, 1639266, 9791821, 3521477 ####[facility] [address] [place] [address] Sodium [Moles/Vol] 135 mmol/L Normal 135-145 [facility] Comment on above: Performed By: #### 1 3825435, 1443174, 5548934, 9533743, 2328823, 4158064 ####[facility] [address] [place] [address] Postoperative Documentson Postoperative Documents [id number]#1.0 0CD:127 Normal [facility] eGFRon 08-04-2021 GFR/1.73 sq M.predicted among blacks MDRD (S/P/Bld) [Vol rate/Area] mL/min/{1.73_m2} Normal >=59 [facility] Comment on above: Order Comment: Order added by Discern Expert. Result Comment: eGFR is race adjusted. AA=. Performed By: #### 1 6665307, 1107735, 2646266, 1965284, 4558512, 8745476 ####[facility] [address] [place] [address] GFR/1.73 sq M.predicted among non-blacks MDRD (S/P/Bld) [Vol rate/Area] mL/min/{1.73_m2} Normal >=59 [facility] Comment on above: Order Comment: Order added by Discern Expert. Result Comment: Business Administration Teacher yannick kidney disease could be indicated at eGFR's of less than 60 mL/min/1.73m2. Kidney failure is indicated at less than 15 mL/min/1.73m2. Performed By: #### 1 3799362, 3364022, 5952460, 5562563, 8207460, 2589129 ####[facility] [address] [place] [address] Reminderson 08-03-2021 Reminders - From: Yudi Olivares LPN To: N - Clinical; Sent: 08/03/2021 09:26:11 EST Show up: 07/02/2031 07:00:00 EST Subject: colonoscopy recall Due Date/Time: 08/02/2031 07:00:00 EST Reminder/Recall Patient is due for screening colonoscopy 08/02/2031. Normal [facility] Colonoscopy Procedure Report on 08-02-2021 Colonoscopy Procedure Report Patient: JEFF DILLARD Age: 51 years Sex: Male : 1970 Associated Diagnoses: None Author: Herbert LEWIS MD Pre-Procedure Procedure Date 08/02/2021 07:50:00 . Procedure Type: Colonoscopy. Procedure provider Performed by Herbert LEWIS MD Referred by NIRMALA AG CNP Current history and physical Documented on chart. Colorectal neoplasm risk assessment Average risk. Informed Consent After discussing the rationale, risks and benefits, and alternatives to this procedure, the patient provided signed consent for the procedure. Pre-procedure diagnosis: Diagnostic: change in bowel habits. ASA Classification: Class II. . Monitoring: See anesthesia record. . Procedure The procedure was performed in the hospital. Rectal exam was performed and was normal. The patient was positioned starting in the left lateral decubitus position. Endoscope type used was an adult-size. The endoscope was lubricated then introduced through the anus. The scope was advanced to the cecum verified by photographing the appendiceal orifice, verified by photographing the ileocecal valve. No difficulties encountered during the procedure. The bowel preparation quality was good and was adequate (see polyps greater than or equal to 6 millimeters). The patient tolerated the procedure well. Findings The bowel was normal throughout the extent examined. Images Procedure images: anal canal ileocecal valve appendiceal orifice . Post-Procedure Complications: none. Estimated blood loss: none. Specimens: none. Devices/ implants: none left in place. Impression and Plan Diagnosis: Encounter for diagnostic colonoscopy due to change in bowel habits (XYH14-IV R19.4, Working, Medical). Course: Progressing as expected. Recommendations: Repeat colonoscopy:: In 10 years. Follow-up:: if problems/questions. Diet:: Regular diet. Medication resumption:: Continue current medications. Return to activities:: After 24 hours. [facility] Comment on above: Other Comment: Britany rowley Attachment - attachment storage system not supported [id number] Can be viewed in source system Missing Attachment - attachment storage system not supported [id number] Can be viewed in source system Missing Attachment - attachment storage system not supported [id number] Can be viewed in source system Consent for Procedure/Surger yon 08-02-2021 Consent for Procedure/Surgery [id number]#1.0 0CD:127 [facility] Consent for Treatmenton Consent for Treatment [id number]#1.0 0CD:127 [facility] Formson 08-02-2021 Forms [id number] 0CD:127 [facility] Main OR PACU I Recordon Main OR PACU I Record PACU Phase I Document Type FT Summary Primary Physician: Herbert LEWIS MD Finalized Date/Time: 08/02/21 08:35:46 Pt. Name: JEFF DILLARD/Sex: 1970 Male Med Rec #: [id number] Physician: Herbert LEWIS MD Financial #: [id number] Pt. Type: O Room/Bed: / Admit/Disch: 08/02/21 06:50:47 - Institution: Case Times PACU I FT Pre-Care Text: Identifies barriers to communication and implements measures to provide psychological support Develops individualized plan of care, and ensures continuity of care Maintains patient's dignity and privacy, and maintains patient confidentiality Identifies and reports philosophical, cultural, and spiritual beliefs and values Identifies individual values and wishes concerning care Implements aseptic technique, and administers prescribed antibiotic therapy and immunizing agents as ordered Evaluates postoperative tissue perfusion Implements thermoregulation measures, and monitors body temperature Evaluates postoperative respiratory status Evaluates postoperative cardiac status Evaluates postoperative neurological status Assesses pain control, collaborated in initiating patient-controlled analgesia and implements alternative methods of pain control Verifies allergies, administers prescribed medications and solutions, evaluates response to medications Entry 1 In PACU I 08/02/21 07:50:00 Discharge from PACU 08/02/21 08:20:00 I Outcomes Met? Yes Last Modified By: Sumaya Lincoln RN 08/02/21 08:35:30 Post-Care Text: The patient demonstrates knowledge of the expected response to the operative or invasive procedure The patient's care is consistent with the individualized perioperative plan of care The patient's right to privacy is maintained The patient's value system, lifestyle, ethnicity, and culture are considered, respected, and incorporated into the perioperative plan of care The patient participates in decisions affecting his or her perioperative plan of care The patient is free from signs and symptoms of infection The patient has wound/tissue perfusion consistent with or improved from baseline levels established preoperatively The patient is at or returning to normothermia at the conclusion of the immediate postoperative period The patient's respiratory function is consistent with or improved from baseline levels established preoperatively The patient's cardiovascular status is consistent with or improved from baseline levels established preoperatively The patient's cardiovascular status is consistent with or improved from baseline levels established preoperatively The patient demonstrates and/or reports adequate pain control throughout the perioperative period The patient received appropriate medication(s), safely administered during the perioperative period Acuity Level PACU I FT Entry 1 Start Time 08/02/21 07:50:00 Stop Time 08/02/21 08:20:00 Acuity Level Acuity Level I Last Modified By: Sumaya Lincoln RN 08/02/21 08:35:40 Finalized By: Sumaya Lincoln RN Document Signatures Signed By: Sumaya Lincoln RN 08/02/21 08:35 Normal [facility] Main OR Preoperative Recordo n 08-02-2021 Main OR Preoperative Record Holding Area Document Type FT Summary Primary Physician: Herbert LEWIS MD Finalized Date/Time: 08/02/21 07:33:01 Pt. Name: JEFF DILLARD /Sex: 1970 Male Med Rec #: [id number] Physician: Herbert LEWIS MD Financial #: [id number] Pt. Type: O Room/Bed: / Admit/Disch: 08/02/21 06:50:47 - Institution: Case Times Holding FT Pre-Care Text: Verifies consent for planned procedure, identifies individual values and wishes concerning care, includes family members in perioperative teaching Secures patient's records' belongings, and valuables, maintains patient's dignity and privacy, and maintains patient confidentiality Entry 1 In Holding 08/02/21 07:14:00 Outcomes Met? Yes Last Modified By: Matthias Raygoza RN 08/02/21 07:20:15 Post-Care Text: The patient participates in decisions affecting his or her perioperative plan of care The patient's right to privacy is maintained Surgery Checklist FT Entry 1 Patient Birthday, ID Band Procedure History and Physical, Identification: Check, Patient Verification: Surgical Consent, With Participation Patient NPO after Midnight: Yes Date/Time: 08/01/21 23:30:00 Complaints of Pain: No Operative Site n/a Marking: Availability Equipment Verified: Does Patient Smoke Yes If Yes to Smoking. 1/2 ppd Cigars or Cigarettes. How much per day? Patient states Yes Comment - Adult father- ed postop adult Supervision supervision available Case Cancelled in No Holding Area see comments below for reason Last Modified By: Matthias Raygoza RN 08/02/21 07:21:22 Finalized By: Matthias Raygoza RN Document Signatures Signed By: Matthias Raygoza RN 08/02/21 07:21 Matthias Raygoza RN 08/02/21 07:33 Normal [facility] Monitor Recordon 08-02-2021 Monitor Record [id number]. 00CD:127 Normal [facility] COVID-19 ([facility])on 07-30-2021 SARS-CoV-2 (COVID-19) RNA ADRIEN+probe Ql (Resp) Not detected Normal Not Detected [facility] Comment on above: Result Comment: This test result should be correlated with clinical presentations and medical history by a healthcare provider to determine its clinical significance. This assay was performed by a reverse transcriptase real-time polymerase chain reaction (rt PCR) method on the [employer]points system. This test has been authorized only for the detection of nucleic acid from SARS-CoV-2, not for any other viruses or pathogens. This test has not been FDA cleared or approved. This test has been authorized by FDA under an Emergency Use Authorization (EUA). This test is only authorized for the duration of time the declaration on that circumstances exist justifying the authorization emergency use of in vitro diagnostic tests for detection and/or diagnosis of COVID-19 infection under section 564 (b) (1) of the Act, 21 U.S.C. 360 bbb-3 (b) (1), unless authorization is terminated or revoked sooner. Performed By: #### 2 [id number] ####[place] [address] SARS-CoV-2 (COVID-19) RNA ADRIEN+probe Ql (Unsp spec) Pass Normal Pass [facility] Comment on above: Performed By: #### 2 [id number] ####[place] [address] Specimen source Nom (Unsp spec) Nasal Normal [facility] Comment on above: Performed By: #### 2 [id number] ####[place] [address] ADMITTED TO INTENSIVE CARE UNIT FOR CONDITION OF INTEREST:FIND:PT: Unknown Normal [facility] Comment on above: Performed By: #### 2 [id number] ####[place] [address] EMPLOYED IN A HEALTHCARE SETTING:FIND:PT: Unknown Normal [facility] Comment on above: Performed By: #### 2 [id number] ####[place] [address] FIRST TEST FOR CONDITION OF INTEREST:FIND:PT: Unknown Normal [facility] Comment on above: Performed By: #### 2 [id number] ####[facility] [address] [place] [id number] HAS SYMPTOMS RELATED TO CONDITION OF INTEREST:FIND:PT: Unknown Normal [facility] Comment on above: Performed By: #### 2 [id number] ####[facility] [address] [place] [address] HOSPITALIZED FOR CONDITION OF INTEREST:FIND:PT: Unknown Normal [facility] Comment on above: Performed By: #### 2 [id number] ####[facility] [address] [place] [address] STATUS:FIND:PT: Unknown Normal [facility] Comment on above: Performed By: #### 2 [id number] ####[address] [address] RESIDES IN A [facility] SETTING:FIND:PT: Unknown Normal [facility] Comment on above: Performed By: #### 2 [id number] ####[facility] [address] [place] [address] Consent for Treatmenton Consent for Treatment [id number]#1.0 0CD:127 Normal [facility] Consent for Treatment [id number]#1.0 0CD:127 Normal [facility] Coding Summary.on 07-06-2021 Coding Summary. CD:[id number] Gh 0bWw+PGhlYWQ+HY3JDCPeR 81klYPjfY2JE9jLIG0VCMA BWNXFNR8CWZ1paHM4KVzfJ 2VybiAv EqrwsOEkVV20JIx2BPS8sB iqMAvnyI8ylOOzR4m8IkFv VN64jC44DRglXJCiOpE1Xr ZpbjsgbWFy J5jlBmIexCZxWsu+PHRhYm xlIHdpZHRoPScxMDAlJyBz hPobKF6gBq0dVRDpDFJwuU xhcHNlOiBj u6xzBANrZExlQN9cbBakC3 LxcIJ1RMLhb6o1Dg83iVP+ ZSGiZJE3sTdxVZyju858Dg Jtd8hyDAA6 lAUtWXpcIED8K57um1C9GN BdFLLoWCG5qCT9gR3zqEjh bjrsW8XipETcTuG4WZB5yC JdtQ6mmPyt ybmijJ7aCwt+I50CZK0GDX XWNU2ZUpx8E9AoOdcotHL+ JP51LZLqTH96iWWccUKhm1 vmpEb5DtIc IGAnXEB9oFkiMKeyu1KiJV EzA45zhIXhd3Q0JVRwcSzb eXBiNoOjdLA1gH3eCXbmma qek2rthxfu Ilcqb0fwxw86eZ18D21ySU ssOEFxMJV1TWZyFAEkvMni vw9obI5bAf7+YOtzy7hsf7 useQy0MjAu QJObrkYowNuaFKF5n9TlOk 51E2ScsHgdf0UcRop5yy86 aRMil3E2gJM7JYvjVOIcrX 3iULfuFzN8 RNKaVzTpxS21pUBvQAxyDj 4pfRilnKvdQS0cOKExyzoi NAYbpG1nTYEhfATmwIolMM 4wNTBpbjtm z259AgTcKZK3LICmeRCgS6 QbhR3cSeOiYWDsWDGwY1Zi jJSoZFnjW226ULhnCzV8BQ BxryEoO5Qa NBVktUleLlJ3s3M3Du9Ui1 VjsqosJCF2RMtbWIWgLhFa FeWaLdF1X4FbCgy0NQZqbS dzYY2sI2Ts LMSobbmjwollbAK9XMRfQR ZceI99mCWoLGceRr1ag9E2 m101CXWwBFHjuY76Yk9pzL ogMTBwdCBU pS1yxohlz7prghqyZeOeUK MuPCc2UIf5XIIduHgjIjXq DWB9HiF4FHD6cCJobS9iuI ojgogagE7z Oyc+A38ioO6zCOE4ILB0wu eaDENgnxBpHP52NN82A0Rz PjwvdGFibGU+PGRpdiBzdH jnHL3sGnGe z3ajs4AiWZhpE7LqANUlEW ozItw9LBLcEFO1jFP8zY8z HXLdBHvua7B3sGP1X6Ofvl Rkuo3gz6yd QVOiWPrwP60amAYsm8Q3CQ TirFT4IAXhkTdaHuGioH03 Oyc+TXJyyKjvg8PmGebpy8 qnq6lmyZn8 YtRuKTWpgxPusFstCRE6m1 IjZy93F30cXMkbGHWlGRAp EKKhJXFapSnhwo2rvK4sFm 8+PGNvbCB3 yJK6yS0yAHFsSqI1LNzyK1 45ZaRiwZUmMypwe8axt4on iEu2TsPnMPIxmcRkpEssMD A8m8TsCw52 E40wDIdiJGOdTICbDSWwYX XgcQhdap7pzK7lNy8+PC9j c1bsaw01fR24hMD+PHRkIH A4dVqjOLxj SPIvrE3tYTabSpA7UGJlCn IteB99mGJhDQciQd2gaNba pSxpFH2uPKWbwiplk937Lh Gof7dmGXHe zUAtCThnRLJ6U11jq4L1NX BmZOSlQNC5tDG2aU3zmUjk bjogbGVmdDsgdmVydGljYW dcODpaH447 IHRvcDsnPlBhdGllbnQgTm CsVXo4Q2IuPlk5FXAcqHbd DO6pxZXrMVedKb7taVteoF nsRK4dXFDc ktefa588KiZyt5xcCLCfuR TlTDdrTMW7Q72gy3Q4XZWw FKLzILL0mIV2xK3dxHgcnk ogbGVmdDsg twLoeOfeLLxmCAoqM450UV RvcDsnPkJpcnRoIERhdGU6 FG72FL99dDFmq1L2eNN5Y1 BhZGRpbmct bkuicAY0BTKmPWSbaE77Xq 1rvVjpVt4hGIJcQCN8PWQj hQVsT6MbcR3bPjGfRUOjQE AsO3ThqGUs TCsnQ502ZDarMlJ3NDBiia CaM1CkXGUamYovUvY9f3E8 Tu1IN4C8XV85AU47mNItf6 M9zQG2T9Eg JRReutuerstvlON2GMCdNT JyjY77Iy2vtOlsHn9hUHEr LBV8INCqwXIoJ7ZdwF0vRk AjMDAwMDAw J5YkrJIkEZxzK137NJuvYf H5PNTofeMxJ4NfGJIhuGyo DpQ9n5I0Sy9WQUy4AD26LO 52kSKfm5X4 wQU7L4AqVTCpwhiypcfapL X2OYCvGHFqqD06Bc3ayPdj Bm6eXZRvGQS6NQUfhRJiS7 JsxF2cHgZa EFIpNTSoW4FhqCGlIOxyT5 57TJivKrA9YGZkdwKqK4Bq TIFuvGuiEuF8e6U4Uc9EOO MoKS80FMA6 zAI0RV52DQ45V9EsXojsyM FibGU+PHRhYmxlIHdpZHRo OQorLXAqJfCmrInfZF5xNn 9yZGVyLWNv qWumtWQyAlJvc5dlZEWrNY pqHH6rxQarB2OpyVH4TPFe y5d9Ou16V61jR9TuuZN+PG PsxZJ2xBG6 xC1eVfZkKpK2MIclQ215Hs AwxVFaYkvqo9mrl2dbyOq4 ApV5RQOehaSojXtnMDG9c7 MrBv12K13l IHdpZHRoPSIxNSUiIHZhbG enwc9ruX4tDu9+PGNvbCB3 tEN5vH9tHyChZgC4IWnbI8 49InRvcCIv Ewgcf4slp5rkeXx2GhCrWA IgzwTgmFioBOW4n4WmWb21 T0FwxNsvy1NvKzo5mn77nO Rpa5A6tIH6 Q5DbXLWyxcquqTUaxAyjUA 3mRIZbetnfVMZfeP3rELNo X8b5QrCtGzK5PAgcM4Varc I3ZTTljWVr HPglZWN6M56ta9F3PZNyQA NkSPF1vPO0dY0rnXynkams bGVmdDsgdmVydGljYWwtYW fcN831GXUs eRmfJUAxnZ2tKQBslDGcnO vlHZ7fSVBobrwbUuJBZ7HS LNNSWDMRQzIAJK48TE37lA Rwu6X3bWK6 I5LiEODttiitfdnvyNL5NZ XjAMQymJ99dRLqKRgmMi2n h3W8q326FMMkEDHrlB58Av 9udDogMTBw jAXQkI7ngljew5qdglktUb UyMEOnUUw9XOu3HSDvtJsh KwImENG8WmJ9MXR4lCMutH 1hbGlnbjog iW3aUha+VEItDpPfSMp5UH wvdGQ+CHTePKI1lFxwBFzr PWJetL2wWFEeE2z6ZxUzWi D0KMebA7Hh ULHkruyuHr88bT6nJjTcPa M4XYvrO0CpwnJ9AEZtxJGm NAbdHZZ3S15ws9O8MZQmMG HmMRY6wXM9 nN2uyIckfmlrpWGacIcrjr MskTlfZYmqBQkwE762UABs kCyrKeBjBJpkCMXeUI57ZG 04wIOqq7V7 yKO0W7MuGRTdccowsgxjvU W1QQMwZEVtvR67nTVgXJck Lq3ja6J2h089SSRbCVYgrT 97Vn4sqCjr HETxdNIXvG6jojwzm5phdy eoRiVqNWElSGn3JZd6MAHl nDonXeYpELR2YlE1UKO9pU WxtD8cjKzq dtoogA0kCxl+TWFsZTwvdG Q+ALLvNYQ1eAfjSKoqICZm sO0nPCGdR3f0ErCvWtF3BE gyP2IyBFAc tjpqFa46rV4xKgYfYaI7FC meQ0PqdeO8OWIdhHUoDChd NJA4R81vh2T7CDQqAOVmTN A9nEV5hP2d bGlnbjogbGVmdDsgdmVydG xiGXlbOMidZ234EKMczRbp NiFmJ6JxjbjySheojYO+PC 11hm21S0Fi OwtfXje5GFYwFYZ8aXG1cJ 3eDUAyBMlsp2F6dWI0G0Fo zpZrkm9xr9bkDIOdNWrbK4 0hbPKig4E7 WKCiuQH0YOJehEmdPiNlpS 93Oyc+KAYwzSroa2SoFfef o3dnj6vjfLm6EkYcEKUzrv FsaWduPSJ0 s7LjUz97Y73sLCvtEYKvAR TfBZHhLRYhhIgrqb8rxM3l Ii8+AFRzoYR0qCQ1zC5yKb ShDaR7GFbm E462SsJlcPVnQjgft8sbd4 lpwJh6OyTbUPMndoJbrSli PIP2r6NzPl60H1AgfSywn4 TyBrj3cp01 kDKqq2O7lFX8N8RhGRHtdr cvrDTokVgnUK1oAKBwgtet YBEwzG9wBHZrN1t7FeKxUs Q0RUpqR1Nu xjO7UOQfmXLjSMHztHJCoW 6lamcpr1ksgsodCjYbNTYg KAw5CSa1ZEEzyYwlLzFhEE N6IyK0SKF3 hGUrqC5ezUltaowreS7jEv c+NIf3d8alnLArUX3dqOW3 DI81UR15oKKqg9I4eNP6U7 BhZGRpbmct weodmDQ1TYCrCKEcyE12Ud 9zjUdlDh7iTHOiFEM8BAHu fITxG3UvyE9pUtYzAIHuAQ EhZ0GjmUOj VTwyD440MZumIiJ0XDHiqe OuH0DtCERekFdiIaN0w8C4 Uo3EUX28FK91RN65mAOvv8 J1fCP5Y3Zt DTEtlclpnonpoPF1LRRcJE JwpS44Ix6ilCetYp4wYSJe TXN6NRYwoLNvX0WmxH5tZr AjMDAwMDAw M4EwiKFsQIeaC891JPntOb D2OCCalqWqL3GjGRIlcHft UeD1b8C9Eh4HPo39DJ22NO 31iYByq6E4 dDF4Y6OuNTWxlfpawpghhT A5DYEnWERzyK57Bi9hcEtt Go9cXYGmFGE3LFOvfZWqD3 ApiI2rKoLk KEPhPEHfF2IlhHGoGCioZ7 35YPtaDrV7YVIyliNiH8Kl RBTivYsdEtV1d2T4Zz0OQY wtgwp1A3Xh PjwvdHI+HE92FZNnXH32cC AbeMRya1fzuRi3WxPxRHKh LJW4kDnmMFfjd8ScDWFtJ8 8jaYScj9J9 IGNv (more content not included)... [facility] Consent for Procedure/Surger yon 07-05-2021 Consent for Procedure/Surgery [id number]#1.0 0CD:127 [facility] Consent for Procedure/Surgery [id number]#1.0 0CD:127 Normal [facility] Physician Orderon 07-05-2021 Physician Order [id number]#1. 00CD:127 Normal [facility] Physician Order [id number]#1.0 0CD:127 Normal [facility] COVID-19 ([facility])on 07-02-2021 SARS-CoV-2 (COVID-19) RNA ADRIEN+probe Ql (Resp) Detected Abnormal Not Detected [facility] Comment on above: Result Comment: This test result should be correlated with clinical presentations and medical history by a healthcare provider to determine its clinical significance. This assay was performed by a reverse transcriptase real-time polymerase chain reaction (rt PCR) method on the Adpoints system. This test has been authorized only for the detection of nucleic acid from SARS-CoV-2, not for any other viruses or pathogens. This test has not been FDA cleared or approved. This test has been authorized by FDA under an Emergency Use Authorization (EUA). This test is only authorized for the duration of time the declaration on that circumstances exist justifying the authorization emergency use of in vitro diagnostic tests for detection and/or diagnosis of COVID-19 infection under section 564 (b) (1) of the Act, 21 U.S.C. 360 bbb-3 (b) (1), unless authorization is terminated or revoked sooner. Performed By: #### 2 [id number] ####[facility] [address] [place] [address] SARS-CoV-2 (COVID-19) RNA ADRIEN+probe Ql (Unsp spec) Pass Normal Pass [facility] Comment on above: Performed By: #### 2 [id number] ####[facility] [address] [place] [address] Specimen source Nom (Unsp spec) Nasal Normal [facility] Comment on above: Performed By: #### 2 [id number] ####[place] [address] Consent for Treatmenton Consent for Treatment [id number]#1.0 0CD:127 Normal [facility] COVID-19 ([facility])on 07-01-2021 ADMITTED TO INTENSIVE CARE UNIT FOR CONDITION OF INTEREST:FIND:PT: NO Normal [facility] Comment on above: Performed By: #### 2 [id number] ####[place] [address] EMPLOYED IN A HEALTHCARE SETTING:FIND:PT: Unknown Normal [facility] Comment on above: Performed By: #### 2 [id number] ####[place] [address] FIRST TEST FOR CONDITION OF INTEREST:FIND:PT: Unknown Normal [facility] Comment on above: Performed By: #### 2 [id number] ####[place] [address] HAS SYMPTOMS RELATED TO CONDITION OF INTEREST:FIND:PT: Unknown Normal [facility] Comment on above: Performed By: #### 2 [id number] ####[place] [address] HOSPITALIZED FOR CONDITION OF INTEREST:FIND:PT: NO Normal [facility] Comment on above: Performed By: #### 2 [id number] ####[place] [address] STATUS:FIND:PT: NO Normal [facility] Comment on above: Performed By: #### 2 [id number] ####[place] [address] [facility] SETTING:FIND:PT: Unknown Normal [facility] Comment on above: Performed By: #### 2 [id number] ####[address] [address] Physician Orderon 07-01-2021 Physician Order [id number]#1. 00CD:127 Normal [facility] Physician Order [id number]#1.0 0CD:127 Normal [facility] Formson 06-14-2021 Forms [id number]#1.0 0CD:127 [facility] Consent for Procedure/Surger yon 06-10-2021 Consent for Procedure/Surgery [id number]#1.00 CD:127 Normal [facility] Provider Letter [facility] June 09, 2021 [facility], [address], [place] [address] Re: JEFF DILLARD Date of : 1970 Thank you for your referral of Jeff Dillard who was seen on consultation on 06/08/2021, for umbilical hernia. An umbilical herniorrhaphy is planned. I have enclosed my consultation note for your review. I will be happy to follow Jeff. Sincerely, Herbert Lewis MD General Surgery [facility] Ambulatory Clinical Summaryo 06-08-2021 Ambulatory Clinical Summary {[id number] c-b8}CD:[id number] [facility] RAD - CT Reporton 06-07-[address] - CT Report [id number]#1.00 CD:127 [facility] Physician Referralon 021 Physician Referral [id number]#1.0 0CD:127 [facility] Lab - Toxicology Resultson 0 10-31-2017 Lab - Toxicology Results [id number]#1.00 OTGTIFF [facility] Triage Industrialon 11-01-19 18 Drug Screen Complete Collected [facility] Comment on above: Performed By: #### 1 [id number] ####[facility] (DEFAULT)[address] [place] [address] Encounters Encounter Date Encounter Type Care Provider Facility Start: 11-03-2022 ambulatory [facility] Start: 10-14-2022 ambulatory [facility] Start: 09-29-2022 End: 09-30-2022 ambulatory [facility] Start: 09-08-2022 End: 09-09-2022 ambulatory [facility] Start: 08-25-2022 End: 08-25-2022 ambulatory [facility] Start: 08-19-2022 End: 08-19-2022 ambulatory [facility] Start: 08-15-2022 ambulatory [facility] Start: 08-12-2022 ambulatory [facility] Start: 08-12-2022 End: 08-12-2022 ambulatory [facility] Start: 08-08-2022 Encounter for preprocedural cardiovascular examination [facility] Start: 08-04-2022 End: 08-05-2022 ambulatory [facility] Facility:[facility] Start: 08-04-2022 End: 08-05-2022 Encounter for preprocedural cardiovascular examination [facility] Facility:[facility] Start: 08-04-2022 ambulatory [facility] Start: 08-04-2022 Encounter for preprocedural laboratory examination [facility] Start: 08-04-2022 ambulatory [facility] Start: 07-09-2022 End: 07-10-2022 ambulatory [facility] Start: 07-04-2022 End: 07-05-2022 ambulatory HIRAM MURILLO [facility] Start: 10-13-2021 ambulatory CHERI TYLER Facility:[facility] Start: 06-08-2021 End: 10-28-2021 Recurring Herbert LEWIS [facility] Start: 10-31-2017 End: 10-31-2017 Ambulatory None Provider Facility:[facility] Procedures Date Procedure Procedure Detail Performing Clinician Start: 08-09-2021 Repair of recurrent umbilical hernia Herbert LEWIS Comment on above: robot assisted with mesh Start: 08-02-2021 Colonoscopy Herbert LEDEZMA Arthroscopy of knee Herbert LEWIS Payers Date Payer Category Payer Private Health Insurance [id number] 1970 Unknown [id number] 1970 Unknown [id number] 1960 Self-pay [id number] 1960 Self-pay Social History Date Type Detail Facility Start: 06-08-2021 Tobacco smoking status Heavy t obacco smoker (finding) [facility] Tobacco smoking status Never [facility] Sex Assigned At Male [facility] Medical Equipment Procedure Code Equipment Code Equipment Origin al Text Equipment Identifier Dates {[id number] [id number]{[id number] {20}02 FDA Start: 08-09-2021 Clinical Notes 06-08-2021 to 11-03-2022 Note Date & Type Note Facility 11-03-2022 Note Subjective Chief complaint: Chief Complaint Patient presents with Left Knee - Pain, Edema L TKA pain with edema 52-year-old male presents for follow-up for left total knee arthroplasty which performed on 08/12/2022. He states he continues to have swelling about his knee which he states is not particularly painful but does feel tight at extremes of motion. He has had no signs of infection or redness of the knee. No fevers, chills, chest pain, shortness of breath. 10/14/2022 Patient is presenting today for follow up for his left knee, patient is S/P Left TKA DOS 08/12/2022. He is 2 months post op patient is overall doing very well with no pain or complaints he is still having significant swelling in his left knee , he denied any fever or chills, denied any pedal swelling her is walking very well with no walking aids and is presenting to discuss return to work. 09/29/2022 Patient is presenting for follow up for his left knee, patient is S/P Left TKA DOS 08/12/2022. He is 6 weeks post op he is overall doing very well walking well with no walking aids and is satisfied with the result of surgery , he denied any fever or chills, denied any drainage from the incision, he has some swelling of the Left knee. New Xrays obtained today. 08/25/2022 Patient is presenting today for follow up for his left knee, he is S/P Left TKA DOS 08/12/2022. He is overall doing very well. Pain controlled, denied any fever or chills he has a GURMEET dressing with no evidence of any further drainage, he is walking well with a walker, he has some lower extremity swelling, denied any chest pain SOB or irregular heart beats. He is presenting accompanied by his sister. 08/19/22: Patient is doing well postoperatively overall but does have some saturation of his GURMEET dressing and feels he may be pushing it too much with his ROM. Pain is relatively well controlled and he continues to take his ASA. 08/15/22 Jeff Dillard is a 52 y.o. year old male presenting for evaluation of L knee drainage s/p L TKA on 08/12/2022. Pt is doing very well overall. States he returned to clinic for dressing change. Denies any wound dehiscence or purulent drainage. Denies any erythematous changes to LLE. Reports some mild swelling to LLE. Denies numbness, tingling, and weakness to LLE. ROS: Denies fevers, chills, and other constitutional symptoms. Denies shortness of breath. Patient History Past Surgical History: Procedure Laterality Date COLONOSCOPY KNEE SURGERY Left x2 UMBILICAL HERNIA REPAIR Past Medical History: Diagnosis Date Dyspnea History of umbilical hernia Hypertension OA (osteoarthritis) Sleep apnea Objective General examination: Patient is alert oriented x3, not in distress, unlabored breathing. Normal mood, normal affect. Looks uncomfortable Left knee exam: Healed incision, good ROM Left knee 0- 115 deg. No instability, NO DVT -ve edwin's intact N/V exam LLE. Boggy swelling of the front of the left knee , no redness hotness or drainage, defect felt in the medial retinaculum of the knee capsule. Imaging: None today Assessment/Plan Jeff Dillard is a 52 y.o. year old male 3 months s/p L TKA 08/12/2022.overall doing very well. Clinically doing very well. Patient might have torn his medial retinaculum, some patellar tilt but no clinical problem and no patellar dislocation, patient is doing great and satisfied with the results PLAN: -Continue WBAT LLE Patient is cleared to return to work with restrictions avoid kneeling or squatting , avoid heavy lifting. F/U in 3 months for reevaluation Instructed to receive abx prophylaxis before dental cleaning. -Follow-up in 6 months for repeat evaluation. - Patient was instructed if he develops signs of an infection or worsening knee pain knee pain to come to see us soon as possible. Melo Wilson, PGY3 Orthopedic Surgery Resident By using the attestations below, the signing clinician agrees that I have read and verify that the documentation has been personally reviewed by me and ensure that the documentation accurately reflects the encounter. GC: I personally saw this patient on the day of the encounter, performed the henry portion(s) of the service and participated in the management and confirm the resident's documentation. Please note there may be an additional personal documentation from me. [facility] 10-14-2022 Note Subjective Chief complaint: Chief Complaint Patient presents with Left Knee - Post-op L TKA follow up 10/14/2022 Patient is presenting today for follow up for his left knee, patient is S/P Left TKA DOS 08/12/2022. He is 2 months post op patient is overall doing very well with no pain or complaints he is still having significant swelling in his left knee , he denied any fever or chills, denied any pedal swelling her is walking very well with no walking aids and is presenting to discuss return to work. 09/29/2022 Patient is presenting for follow up for his left knee, patient is S/P Left TKA DOS 08/12/2022. He is 6 weeks post op he is overall doing very well walking well with no walking aids and is satisfied with the result of surgery , he denied any fever or chills, denied any drainage from the incision, he has some swelling of the Left knee. New Xrays obtained today. 08/25/2022 Patient is presenting today for follow up for his left knee, he is S/P Left TKA DOS 08/12/2022. He is overall doing very well. Pain controlled, denied any fever or chills he has a GURMEET dressing with no evidence of any further drainage, he is walking well with a walker, he has some lower extremity swelling, denied any chest pain SOB or irregular heart beats. He is presenting accompanied by his sister. 08/19/22: Patient is doing well postoperatively overall but does have some saturation of his GURMEET dressing and feels he may be pushing it too much with his ROM. Pain is relatively well controlled and he continues to take his ASA. 08/15/22 Jeff Dillard is a 52 y.o. year old male presenting for evaluation of L knee drainage s/p L TKA on 08/12/2022. Pt is doing very well overall. States he returned to clinic for dressing change. Denies any wound dehiscence or purulent drainage. Denies any erythematous changes to LLE. Reports some mild swelling to LLE. Denies numbness, tingling, and weakness to LLE. ROS: Denies fevers, chills, and other constitutional symptoms. Denies shortness of breath. Patient History Past Surgical History: Procedure Laterality Date COLONOSCOPY KNEE SURGERY Left x2 UMBILICAL HERNIA REPAIR Past Medical History: Diagnosis Date Dyspnea History of umbilical hernia Hypertension OA (osteoarthritis) Sleep apnea Objective General examination: Patient is alert oriented x3, not in distress, unlabored breathing. Normal mood, normal affect. Looks uncomfortable Left knee exam: Healed incision, good ROM Left knee 0- 115 deg. No instability, NO DVT -ve edwin's intact N/V exam LLE. Boggy swelling of the front of the left knee , no redness hotness or drainage, defect felt in the medial retinaculum of the knee capsule. Imaging: None today Assessment/Plan Jeff Dillard is a 52 y.o. year old male s/p L TKA 08/12/2022.overall doing very well. Clinically doing very well. Patient might have torn his medial retinaculum, some patellar tilt but no clinical problem and no patellar dislocation, patient is doing great and satisfied with the results PLAN: -Continue WBAT LLE Patient is cleared to return to work with restrictions avoid kneeling or squatting , avoid heavy lifting. F/U in 3 months for reevaluation Instructed to receive abx prophylaxis before dental cleaning. [facility] 09-29-2022 Note Subjective Chief complaint: Chief Complaint Patient presents with Left Knee - Post-op L TKA follow up 09/29/2022 Patient is presenting for follow up for his left knee, patient is S/P Left TKA DOS 08/12/2022. He is 6 weeks post op he is overall doing very well walking well with no walking aids and is satisfied with the result of surgery , he denied any fever or chills, denied any drainage from the incision, he has some swelling of the Left knee. New Xrays obtained today. 08/25/2022 Patient is presenting today for follow up for his left knee, he is S/P Left TKA DOS 08/12/2022. He is overall doing very well. Pain controlled, denied any fever or chills he has a GURMEET dressing with no evidence of any further drainage, he is walking well with a walker, he has some lower extremity swelling, denied any chest pain SOB or irregular heart beats. He is presenting accompanied by his sister. 08/19/22: Patient is doing well postoperatively overall but does have some saturation of his GURMEET dressing and feels he may be pushing it too much with his ROM. Pain is relatively well controlled and he continues to take his ASA. 08/15/22 Jeff Dillard is a 52 y.o. year old male presenting for evaluation of L knee drainage s/p L TKA on 08/12/2022. Pt is doing very well overall. States he returned to clinic for dressing change. Denies any wound dehiscence or purulent drainage. Denies any erythematous changes to LLE. Reports some mild swelling to LLE. Denies numbness, tingling, and weakness to LLE. ROS: Denies fevers, chills, and other constitutional symptoms. Denies shortness of breath. Patient History Past Surgical History: Procedure Laterality Date COLONOSCOPY KNEE SURGERY Left x2 UMBILICAL HERNIA REPAIR Past Medical History: Diagnosis Date Dyspnea History of umbilical hernia Hypertension OA (osteoarthritis) Sleep apnea Objective General examination: Patient is alert oriented x3, not in distress, unlabored breathing. Normal mood, normal affect. Looks uncomfortable Left knee exam: Healed incision, good ROM Left knee 0- 115 deg. No instability, NO DVT -ve edwin's intact N/V exam LLE. Boggy swelling of the front of the left knee , no redness hotness or drainage, defect felt in the medial retinaculum of the knee capsule. Imaging: X rays of the Left knee 3 views showed well aligned Left TKA , complete correction of the varus deformity, evidence of some patellar tilt Assessment/Plan Jeff Dillard is a 52 y.o. year old male s/p L TKA 08/12/2022.overall doing very well. Clinically doing very well. Patient might have torn his medial retinaculum, some patellar tilt but no clinical problem and no patellar dislocation, patient is doing great and satisfied with the results PLAN: -Continue WBAT LLE Prescribed one week of abx until the knee swelling is improved. F/U in 3 months for reevaluation Instructed to return with any fever or swell or increased swelling. [facility] 08-25-2022 Note Subjective Chief complaint: Chief Complaint Patient presents with Left Knee - Post-op Patient here for post op evaluation, doing well at this time. 08/25/2022 Patient is presenting today for follow up for his left knee, he is S/P Left TKA DOS 08/12/2022. He is overall doing very well. Pain controlled, denied any fever or chills he has a GURMEET dressing with no evidence of any further drainage, he is walking well with a walker, he has some lower extremity swelling, denied any chest pain SOB or irregular heart beats. He is presenting accompanied by his sister. 08/19/22: Patient is doing well postoperatively overall but does have some saturation of his GURMEET dressing and feels he may be pushing it too much with his ROM. Pain is relatively well controlled and he continues to take his ASA. 08/15/22 Jeff Dillard is a 52 y.o. year old male presenting for evaluation of L knee drainage s/p L TKA on 08/12/2022. Pt is doing very well overall. States he returned to clinic for dressing change. Denies any wound dehiscence or purulent drainage. Denies any erythematous changes to LLE. Reports some mild swelling to LLE. Denies numbness, tingling, and weakness to LLE. ROS: Denies fevers, chills, and other constitutional symptoms. Denies shortness of breath. Patient History Past Surgical History: Procedure Laterality Date COLONOSCOPY KNEE SURGERY Left x2 UMBILICAL HERNIA REPAIR Past Medical History: Diagnosis Date Dyspnea History of umbilical hernia Hypertension OA (osteoarthritis) Sleep apnea Objective General examination: Patient is alert oriented x3, not in distress, unlabored breathing. Normal mood, normal affect. Looks uncomfortable Left knee exam: Healed incision, good ROM Left knee 0- 95 deg. No instability, NO DVT -ve edwin's intact N/V exam LLE. Imaging: No new Assessment/Plan Jeff Dillard is a 52 y.o. year old male s/p L TKA 08/12/2022.overall doing very well. -Continue GURMEET dressing for few more days -Continue DVT ppx as directed - F/U in 4 weeks with new X rays prior to being seen [facility] 08-19-2022 Note Subjective Chief complaint: Chief Complaint Patient presents with Left Knee - Post-op, Pain L TKA possible wound vac change, c/o increased bleeding 08/19/22: Patient is doing well postoperatively overall but does have some saturation of his GURMEET dressing and feels he may be pushing it too much with his ROM. Pain is relatively well controlled and he continues to take his ASA. 08/15/22 Jeff Dillard is a 52 y.o. year old male presenting for evaluation of L knee drainage s/p L TKA on 08/12/2022. Pt is doing very well overall. States he returned to clinic for dressing change. Denies any wound dehiscence or purulent drainage. Denies any erythematous changes to LLE. Reports some mild swelling to LLE. Denies numbness, tingling, and weakness to LLE. ROS: Denies fevers, chills, and other constitutional symptoms. Denies shortness of breath. Patient History Past Surgical History: Procedure Laterality Date COLONOSCOPY KNEE SURGERY Left x2 UMBILICAL HERNIA REPAIR Past Medical History: Diagnosis Date Dyspnea History of umbilical hernia Hypertension OA (osteoarthritis) Sleep apnea Objective General examination: Patient is alert oriented x3, not in distress, unlabored breathing. Normal mood, normal affect. Looks uncomfortable HEENT : Normocepahlic , atraumatic, no nasal discharge Eye exam: No conjunctivitis Cardivascular: Radial pulse 2+ normal rate and rhythm, warm well perfused extremities. Pulmonary: No wheezing or cough no laboured breathing. Abdominal exam: soft non tender abdomen. Skin: moist , warm , no rash, no bruising Psychiatristic: Normal mood and affect. Muscloskeletal exam : Exam of the left knee showed well healed incision of previous surgery with some slight emacerationdistally adjacent to the wound from dressing saturation. No dehisence. No redness hotness or inflammation, mild swelling of knee joint. R0M from 0-90 deg. TTP over medial joint line, intact N/V exam LLE. Swelling and ecchymosis of the calf and foot. 2+ DP pulse Imaging: No new Assessment/Plan Jeff Dillard is a 52 y.o. year old male with post-op drainage and swelling to LLE, s/p L TKA 08/12/2022. -GURMEET dressing changed without difficulty or complication -Continue DVT ppx as directed -refilled pain Rx -follow up next week as scheduled. Melo Wilson, PGY3 Orthopedic Surgery Resident By using the attestations below, the signing clinician agrees that I have read and verify that the documentation has been personally reviewed by me and ensure that the documentation accurately reflects the encounter. GC: I personally saw this patient on the day of the encounter, performed the henry portion(s) of the service and participated in the management and confirm the resident's documentation. Please note there may be an additional personal documentation from me. I, Drew Hogan, personally performed the face to face evaluation on this patient. I discussed with the patient and confirmed the accuracy and completeness of the aforementioned history prepared by the advance practice provider, and I personally performed the clinical examination of the patient. I discussed the treatment plan with the patient. Drew Hogan MD [facility] 08-15-2022 Note Subjective Chief complaint: No chief complaint on file. 08/15/22 Jeff Dillard is a 52 y.o. year old male presenting for evaluation of L knee drainage s/p L TKA on 08/12/2022. Pt is doing very well overall. States he returned to clinic for dressing change. Denies any wound dehiscence or purulent drainage. Denies any erythematous changes to LLE. Reports some mild swelling to LLE. Denies numbness, tingling, and weakness to LLE. ROS: Denies fevers, chills, and other constitutional symptoms. Denies shortness of breath. Patient History Past Surgical History: Procedure Laterality Date COLONOSCOPY KNEE SURGERY Left x2 UMBILICAL HERNIA REPAIR Past Medical History: Diagnosis Date Dyspnea History of umbilical hernia Hypertension OA (osteoarthritis) Sleep apnea Objective General examination: Patient is alert oriented x3, not in distress, unlabored breathing. Normal mood, normal affect. Looks uncomfortable HEENT : Normocepahlic , atraumatic, no nasal discharge Eye exam: No conjunctivitis Cardivascular: Radial pulse 2+ normal rate and rhythm, warm well perfused extremities. Pulmonary: No wheezing or cough no laboured breathing. Abdominal exam: soft non tender abdomen. Skin: moist , warm , no rash, no bruising Psychiatristic: Normal mood and affect. Muscloskeletal exam : Exam of the left knee showed well healed incision of previous surgery. No redness hotness or inflammation, mild swelling of knee joint. Decreased ROM d/t pain 5-80 deg. TTP over medial joint line, intact N/V exam LLE. Imaging: No new Assessment/Plan Jeff Dillard is a 52 y.o. year old male with post-op drainage and swelling to LLE, s/p L TKA 08/12/2022. -GURMEET dressing changed without difficulty or complication -Continue Abx and DVT ppx as directed -Call office with any worsening drainage or dressing saturations -Return to clinic for scheduled post-op visit Luisito Velázquez MD Orthopedic Surgery Resident Physician Pager: [phone] 08/19/22 11:14 AM By using the attestations below, the signing clinician agrees that I have read and verify that the documentation has been personally reviewed by me and ensure that the documentation accurately reflects the encounter. RESIDENT ONLY VISIT [facility] 08-12-2022 Note Called [facility] who services the [facility]. They are verifying insurance to ensure ablility to accept. [facility] 08-12-2022 Note [facility] care accepted. [facility] 08-12-2022 Note Consulted for home c are from the PACU. No preferred choice. Referral made to [facility]. [facility] 08-12-2022 Note Occupational Therapy Occupational Therapy Evaluation Patient Name: Jeff Dillard : 1970 Today's Date: 08/12/2022 Time in: 1329 Time out: 1342 Surgery type: L TKA Surgery date: 08/12/22 General Subjective: 52yoM presents with L knee pain, deformity worsening over last 2 years, FCT. Family/Caregiver Present: Yes RN ok for pt to be seen at this time. Pt sitting EOB upon arrival and agreeable to session. Pt completed functional tasks and functional ambulation. Pt was left sitting EOB with call light and needs in reach. RN aware of pt performance. Pt planning to dc home on this day, has no additional questions and concerns. Pt reports he will have assist as needed. OT to sign off. Patient Active Problem List Diagnosis Acquired varus deformity knee, left Primary osteoarthritis of left knee Status post total left knee replacement Past Medical History: Diagnosis Date Dyspnea History of umbilical hernia Hypertension OA (osteoarthritis) Sleep apnea Past Surgical History: Procedure Laterality Date COLONOSCOPY KNEE SURGERY Left x2 UMBILICAL HERNIA REPAIR Pain Pain Assessment Pain Assessment: 0-10 Pain Score: 7 Pain Type: Acute pain, Surgical pain Pain Location: Knee Pain Orientation: Left Precautions Precautions LE Weight Bearing Status: Left, WBAT Medical Precautions: IV, fall risk, nerve block, telemetry, TKA Home Living Home Living Type of Home: House Lives With: Alone (will have someone there to assist for 24 hrs.) Home Adaptive Equipment: Walker rolling (can borrow shower chair) Home Layout: Two level, Bed/bath upstairs, Stairs to alternate level with rails (full bath in basement, can sleep on main level. but reports he plans to go to basement.) Alternate Level Stairs-Rails: Both Alternate Level Stairs-Number of Steps: FF (to second floor and to basement) Home Access: Stairs to enter with rails Entrance Stairs-Rails: Both Entrance Stairs-Number of Steps: 4-5 Bathroom Shower/Tub: Tub/shower unit, Walk-in shower (walk in shower in basement) Bathroom Toilet: Standard Bathroom Equipment: Grab bars in shower, Shower chair without back Prior Level of Function Prior Function Level of [place]: Independent with ADLs and functional transfers Receives Help From: Family, Friends ADL Assistance: Independent Homemaking Assistance: Independent Driving: Independent Static Sitting Balance Static Sitting Balance Static Sitting-Balance Support: Feet supported, No upper extremity supported Static Sitting-Level of Assistance: Distant supervision Dynamic Sitting Balance Dynamic Sitting Balance Dynamic Sitting-Balance Support: Unilateral upper extremity supported, Feet supported Dynamic Sitting-Balance: Forward lean Dynamic Sitting Balance-Level of Assistance: Distant supervision Static Standing Balance Static Standing Balance Static Standing-Balance Support: Right upper extremity supported, Left upper extremity supported (RW) Static Standing-Level of Assistance: Close supervision Dynamic Standing Balance Dynamic Standing Balance Dynamic Standing-Balance Support: Right upper extremity supported, Left upper extremity supported (RW) Dynamic Standing-Balance: Forward lean Dynamic Standing Balance-Level of Assistance: Contact guard Bed Mobility Bed Mobility Bed Mobility: No (Pt sitting EOB upon arrival, Bed mobility not assessed.) Transfers Transfers Transfer: Yes Transfer 1 Transfer From 1: Bed, Sit Transfer Type 1: To and from Transfer to 1: Stand Technique 1: Sit to stand, Stand to sit Transfer Device 1: rolling walker Cognition Cognition Overall Cognitive Status: Within Functional Limits Arousal/Alertness: Appropriate responses to stimuli Orientation Level: Oriented X4 Following Commands: Follows all commands and directions without difficulty Safety Judgment: Good awareness of safety precautions Attention Span: Appears intact Memory: Appears intact Problem Solving: Able to problem solve independently Communication: Intact Prior IADLs IADL History Homemaking Responsibilities: Yes Meal Prep Responsibility: Primary Laundry Responsibility: Primary Cleaning Responsibility: Primary General Assessments ADL UE Dressing Assistance: Stand by LE Dressing Assistance: Minimal Toileting Assistance with Device: Stand by Activity Tolerance Endurance: Stage III Stage III (METs 2.0-3.0) - Sitting to Standin-10 mins Vision - Basic Assessment Current Vision: No visual deficits Sensation Light Touch: No apparent deficits Coordination Movements are Fluid and Coordinated: Yes Hand Function Gross Grasp: Functional Coordination: Functional Extremity Assessments RUE Assessment RUE Assessment: Within Functional Limits LUE Assessment LUE Assessment: Within Functional Limits Outcome Assessments AM-PAC 6 Clicks Putting on and taking off regular lower b (more content not included)... [facility] 08-12-2022 Note Patient: Jeff Dillard Procedure Summary Date: 08/12/22 Room / Location: [facility] OPERATING ROOM 04 / [facility] Operating Room Anesthesia Start: 726 Anesthesia Stop: 1103 Procedure: ARTHROPLASTY, KNEE, TOTAL (Left: Knee) Diagnosis: Arthritis of left knee (Arthritis of left knee [M17.12]) Surgeons: Drew Hogan MD Responsible Provider: Brown Dailey MD Anesthesia Type: general ASA Status: 3 Anesthesia Type: general Vitals Value Taken Time BP 130/75 08/12/22 1200 Temp 36.5 ???C (97.7 ???F) 08/12/22 1104 Pulse 100 08/12/22 1200 Resp 20 08/12/22 1200 SpO2 92 % 08/12/22 1200 Anesthesia Post Evaluation Patient location during evaluation: PACU Patient participation: complete - patient participated Level of consciousness: awake and alert Pain management: adequate Airway patency: patent Cardiovascular status: acceptable Respiratory status: acceptable Hydration status: acceptable Comments: Awake and alert, answers questions appropriately There were no known notable events for this encounter. [facility] 08-12-2022 Note Physical Therapy Physical Therapy Evaluation Patient Name: Jeff Dillard : 1970 Today's Date: 08/12/2022 General Subjective: 52 y.o. male c/o L knee pain and deformity, worsening x2 years. Admit 08/12/22 for L TKA. Pt sitting edge of stretcher in PACU upon arrival and agreeable to PT. Pt amb around unit and performed step w/o difficulty. Returned to sit edge of stretcher at end of session. Patient Active Problem List Diagnosis Acquired varus deformity knee, left Primary osteoarthritis of left knee Status post total left knee replacement Past Medical History: Diagnosis Date Dyspnea History of umbilical hernia Hypertension OA (osteoarthritis) Sleep apnea Past Surgical History: Procedure Laterality Date COLONOSCOPY KNEE SURGERY Left x2 UMBILICAL HERNIA REPAIR Pain Pain Assessment Pain Assessment: 0-10 Pain Score: 7 Pain Type: Acute pain, Surgical pain Pain Location: Knee Pain Orientation: Left Home Living Home Living Type of Home: House Lives With: Alone (Will have assist for the first day.) Home Adaptive Equipment: Walker rolling Home Layout: Two level, Bed/bath upstairs, Stairs to alternate level with rails (Also with bathroom in the basement.) Alternate Level Stairs-Rails: Both Alternate Level Stairs-Number of Steps: FF Home Access: Stairs to enter with rails Entrance Stairs-Rails: Both Entrance Stairs-Number of Steps: 4-5 Bathroom Shower/Tub: Tub/shower unit, Walk-in shower Bathroom Toilet: Standard Bathroom Equipment: Grab bars in shower (Can borrow shower chair.) Prior Level of Function Prior Function Level of [place]: Independent with ADLs and functional transfers ADL Assistance: Independent Homemaking Assistance: Independent Driving: Independent Objective Precautions Precautions LE Weight Bearing Status: Left, WBAT Medical Precautions: fall risk, IV, TKA, telemetry Post-Surgical Precautions: TKA precautions Cognition Cognition Overall Cognitive Status: Within Functional Limits Arousal/Alertness: Appropriate responses to stimuli Following Commands: Follows all commands and directions without difficulty General Assessments Activity Tolerance Endurance: Stage III Stage III (METs 2.0-3.0) - Sitting to Standin-10 mins Sensation Light Touch: No apparent deficits Postural Control Posture Assessment: WFL Static Sitting Balance Static Sitting-Balance Support: Feet supported Static Sitting-Level of Assistance: Independent Dynamic Sitting Balance Dynamic Sitting-Comments: Not tested Static Standing Balance Static Standing-Balance Support: Right upper extremity supported, Left upper extremity supported (walker) Static Standing-Level of Assistance: Contact guard Dynamic Standing Balance Dynamic Standing-Balance Support: Right upper extremity supported, Left upper extremity supported (walker) Dynamic Standing Balance-Level of Assistance: Contact guard Functional Assessments Bed Mobility Bed Mobility: No Transfers Transfer: Yes Transfer 1 Transfer From 1: Sit Transfer Type 1: To and from Transfer to 1: Stand Transfer Device 1: rolling walker Transfer Level of Assistance 1: Contact guard Trials/Comments 1: 1 Ambulation Ambulation: Yes Ambulation 1 Surface 1: Level tile Device 1: Rolling walker Assistance 1: Contact guard Quality of Gait 1: No LOB. Pt amb with steady pace, good tolerance to wt bearing, reciprocal gait pattern. Comments/Distance (ft) 1: ~70 Stairs Stairs: Yes Stairs Rails 1: None (Comment) Device 1: Rolling walker Assistance 1: Contact guard Quality of Stairs 1: No LOB. Cues for sequence. Comment/Number of Steps 1: 1 Extremity Assessments RUE Assessment RUE Assessment: Within Functional Limits LUE Assessment LUE Assessment: Within Functional Limits RLE Assessment RLE Assessment: Within Functional Limits LLE Assessment LLE Assessment: (L hip flex and knee ext tested to 3/5 only. Ankle WFL. Able to flex knee to sit edge of bed.) Outcome Assessments 6 Clicks (Mobility) Impairment Codes: Total knee replacement Help from another person turning from your back to your side while in a flat bed without using bedrails: None Help from another person moving from lying on your back to sitting on the side of a flat bed without using bedrails: None Help from another person moving to and from a bed to a chair (including a wheelchair): A little Help from another person standing up from a chair using your arms (e.g. wheelchair or bedside chair): A little Help from another person to walk in hospital room: A little Help from another person climbing 3-5 steps with a railing: A little Mobility 6 Clicks T-Score: 20 Assessment/Plan PT Assessment Impairments: Decreased strength, Decreased range of motion, Pain, Decreased mobility, Impaired balance, Decreased endurance PT Assessment: Pt with decreased f (more content not included)... [facility] 08-12-2022 Note IRRESEPT IRRIGATION USED DURING THE PROCEDURE [facility] 08-12-2022 Note Peripheral Block Patient location during procedure: pre-op Start time: 08/12/2022 7:10 AM End time: 08/12/2022 7:25 AM Reason for block: at surgeon's request and post-op pain management Staffing Performed: resident/CLAIMS ADJUSTER/CAA Anesthesiologist: Brown Dailey MD Resident/CLAIMS ADJUSTER: Katharina Noonan MD Preanesthetic Checklist Completed: patient identified, IV checked, site marked, risks and benefits discussed, surgical consent, monitors and equipment checked, pre-op evaluation and timeout performed Peripheral Block Patient position: supine Prep: ChloraPrep Patient monitoring: continuous pulse ox and heart rate Block type: adductor canal block Laterality: left Injection technique: single-shot Guidance: ultrasound guided Local infiltration: bupivicaine Needle Needle type: short-bevel Needle gauge: 21 G Needle length: 4 in Needle localization: ultrasound guidance Medications Administered Bupivacaine HCl (Marcaine) 0.5 % (5 mg/mL) injection, 50 mg midazolam (VERSED) IV, 2 mg fentaNYL (SUBLIMAZE) IV, 50 mcg Assessment Injection assessment: negative aspiration for heme, no paresthesia on injection, incremental injection and local visualized surrounding nerve on ultrasound Paresthesia pain: none Heart rate change: no Slow fractionated injection: yes [facility] 08-12-2022 Note Airway Date/Time: 08/12/2022 7:35 AM Urgency: elective Airway not difficult General Information and Staff Patient location during procedure: OR Anesthesiologist: Brown Dailey MD Resident/CLAIMS ADJUSTER/CAA: Katharina Noonan MD Performed: resident/CLAIMS ADJUSTER/CAA Indications and Patient Condition Indications for airway management: anesthesia Spontaneous Ventilation: absent Sedation level: deep Preoxygenated: yes Patient position: sniffing Mask difficulty assessment: 2 - vent by mask + OA or adjuvant +/- NMBA Planned trial extubation Final Airway Details Final airway type: endotracheal airway Successful airway: ETT Cuffed: yes Successful intubation technique: video laryngoscopy Facilitating devices/methods: intubating stylet Endotracheal tube insertion site: oral Blade: Damon Blade size: #4 ETT size (mm): 7.5 Cormack-Lehane Classification: grade I - full view of glottis Placement verified by: chest auscultation and capnometry Cuff volume (mL): 10 Measured from: lips ETT to lips (cm): 23 Number of attempts at approach: 1 [facility] 08-12-2022 Note Patient: Jeff Dillard Procedure Information Date/Time: 08/12/22 0730 Procedure: ARTHROPLASTY, KNEE, TOTAL (Left: Knee) - HARO AND NEPHEW notifed 08/04 NBA Location: [facility] OPERATING ROOM 04 / [facility] Operating Room Surgeons: Drew Hogan MD Relevant Problems Anesthesia (within normal limits) DAYAMI but can't use mask Cardio (within normal limits) HTN Endo (within normal limits) GI (within normal limits) /Renal (within normal limits) Neuro/Psych (within normal limits) Pulmonary smokes 1/2 ppd Clinical information reviewed: Tobacco Allergies Meds Med Hx Surg Hx Fam Hx Soc Hx Physical Exam Airway Mallampati: IV TM distance: >3 FB Neck ROM: full Cardiovascular - normal exam Dental - normal exam Pulmonary - normal exam Abdominal (+) obese Anesthesia Plan ASA 3 general (Discussed Pre-op left adductor canal block for post-op pain control, risks including bleeding, infection, nerve damage discussed. GA/OETT for procedure discussed. Pt agrees to all.) The patient is a current smoker. Patient did not smoke on day of procedure. Obstructive sleep apnea risk education given perioperatively: pt can't use CPAP. intravenous induction Postoperative administration of opioids is intended. Trial extubation is planned. Anesthetic plan and risks discussed with patient. Use of blood products discussed with patient who consented to blood products. Plan discussed with resident. Additional Equipment Requests [facility] 08-08-2022 Note Called PCP's office for patient's medical clearance and was informed that patients' EKG came back abnormal, therefore, they are referring patient to [facility] for Cardiac Clearance, surgery is currently scheduled for 08/12/pending clearances.[facility] 08-04-2022 Note I met with the patie marianna for pre-operative education and discharge planning prior to his joint replacement surgery. The patient would like to discharge to home following his release from the hospital. He has 6 steps to get into his house, and once he is inside his bedroom is upstairs, but he can convert one downstairs. He will have support at home. He was given a script for a walker, raised toilet seat, and shower chair. He would like [facility] therapy but does not have a preference. [facility] 08-04-2022 Note Orthopedic Surgery Subjective Chief complaint: Chief Complaint Patient presents with Left Knee - Pain Pre op L tka 08/04/22 Jeff Dillard is a 52 y.o. year old male presenting for evaluation of left knee Jeff Dillard is a 51 y.o. year old male presenting for evaluation of Left knee pain. Patient is here for his preoperative visit prior to surgery. Patient states that he has had chronic left knee pain for many years now. He states over the last 2 years it is gotten profoundly worse. He notes that he had an ACL reconstruction done in 1987. He states that he has been good since the surgery but is quickly started to become debilitating. He states that he is unable to work and has been put off work and told to seek out treatment and then have this done in order to return to work. He states that his bothers him throughout all hours. He has had cortisone injections we do not help at all. Patient with severe left knee pain and deformity for years , failed conservative treatment , referred for evaluation referred to discuss surgery. Patient severe deformity and with obesity Patient is scheduled for Left TKA, patient hasn't had his final medical clearance yet pending An Echo cardiogram. Patient History Past Surgical History: Procedure Laterality Date KNEE SURGERY Left x2 Past Medical History: Diagnosis Date Hypertension Objective General examination: Patient is alert oriented x3, not in distress, unlabored breathing. Normal mood, normal affect. Looks uncomfortable HEENT : Normocepahlic , atraumatic, no nasal discharge Eye exam: No conjunctivitis Cardivascular: Radial pulse 2+ normal rate and rhythm, warm well perfused extremities. Pulmonary: No wheezing or cough no laboured breathing. Abdominal exam: soft non tender abdomen. Skin: moist , warm , no rash, no bruising Psychiatristic: Normal mood and affect. Muscloskeletal exam : Exam of the left knee showed well healed incision of previous surgey for ACL. No redness hotness or inflammation, no effusion, obvious severe varus deformity. Decreased ROM 5- 100 deg. Ttp over the medial joint line , No DVT , intact N/V exam LLE -Some numbness tingling on the dorsum of the L foot, consistent with reported neuropathy per patient Imaging personally reviewed: X rays of the Left knee obtained on 08/01/2022 as well as long standing films obtained today in clinic independently reviewed and interpreted by me showed Left knee advanced degenerative joint disease with severe varus deformity of the left knee. Retained hardware Left knee. Assessment/Plan Jeff Dillard is a 52 y.o. 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 History of ACL surgery. PLAN: Patient scheduled for Left Total knee arthroplasty Obtain pre op clearances: Per patient- saw PCP yesterday and awaiting EKG to be performed for final clearance. Pt will fax to our office upon completion. Discussed with the patient the result of imaging and clinical exam discussed surgical options Discussed with the patient all the risks and benefits of surgery as well as the nonsurgical options. Discussed risk of anesthesia, Infection, bleeding, injury to nerves and vessels, injury to surrounding structures, stiffness, persistence of pain, blood clots to the legs or the lungs, medical complications and the need for revision surgery. Patient understood the recommendations and possible risks and elected to proceed with surgery. Ex[plained to the patient the complexity due to the previous retained hardware and the severe varus deformity that might require a more constrained prosthesis. Discussed obtaining intra op cultures during surgery due to his previous ACL surgery with retained hardware. Office Visit Attestation GC: I personally saw this patient on the day of the encounter, performed the henry portion(s) of the service and participated in the management and confirm the resident's documentation. Please note there may be an additional personal documentation from me. I, Drew Hogan, personally performed the face to face evaluation on this patient. I discussed with the patient and confirmed the accuracy and completeness of the aforementioned history prepared by the advance practice provider, and I personally performed the clinical examination of the patient. I discussed the treatment plan with the patient. Drew Hogan MD [facility] 07-09-2022 Note Orthopedic Surgery Subjective Chief complaint: Chief Complaint Patient presents with Left Knee - Pain, Follow-up 07/09/22 Jeff Dillard is a 51 y.o. year old male presenting for evaluation of left knee Jeff Dillard is a 51 y.o. year old male presenting for evaluation of Left knee pain. Patient is new patient to us. Patient states that he has had chronic left knee pain for many years now. He states over the last 2 years it is gotten profoundly worse. He notes that he had an ACL reconstruction done in 1987. He states that he has been good since the surgery but is quickly started to become debilitating. He states that he is unable to work and has been put off work and told to seek out treatment and then have this done in order to return to work. He states that his bothers him throughout all hours. He has had cortisone injections we do not help at all. Patient with severe left knee pain and deformity for years , failed conservative treatment , referred for evaluation referred to discuss surgery. Patient severe deformity and with obesity Patient History Past Surgical History: Procedure Laterality Date KNEE SURGERY Left x2 Past Medical History: Diagnosis Date Hypertension Objective General examination: Patient is alert oriented x3, not in distress, unlabored breathing. Normal mood, normal affect. Looks uncomfortable HEENT : Normocepahlic , atraumatic, no nasal discharge Eye exam: No conjunctivitis Cardivascular: Radial pulse 2+ normal rate and rhythm, warm well perfused extremities. Pulmonary: No wheezing or cough no laboured breathing. Abdominal exam: soft non tender abdomen. Skin: moist , warm , no rash, no bruising Psychiatristic: Normal mood and affect. Muscloskeletal exam : Exam of the left knee showed well healed incision of previous surgey. No redness hotness or inflammation, no effusion, obvious severe varus deformity. Decreased ROM 5- 100 deg. Ttp over the medial joint line , No DVT , intact N/V exam LLE Imaging personally reviewed: X rays of the Left knee obtained on as well as long standing films obtained today in clinic independently reviewed and interpreted by me showed Left knee advanced degenerative joint disease with severe varus deformity of the left knee. Retained hardware Left knee. Assessment/Plan Jeff Dillard is a 51 y.o. 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 History of ACL surgery. PLAN: Patient will be scheduled for Left Total knee arthroplasty Obtain pre op clearances Obtain inflammatory markers to rule out infection. Discussed with the patient the result of imaging and clinical exam discussed surgical options Discussed with the patient all the risks and benefits of surgery as well as the nonsurgical options. Discussed risk of anesthesia, Infection, bleeding, injury to nerves and vessels, injury to surrounding structures, stiffness, persistence of pain, blood clots to the legs or the lungs, medical complications and the need for revision surgery. Patient understood the recommendations and possible risks and elected to proceed with surgery. Ex[plained to the patient the complexity due to the previous retained hardware and the severe varus deformity that might require a more constrained prosthesis. [facility] 07-04-2022 Note Orthopedic Surgery Subjective Chief complaint: Chief Complaint Patient presents with Left Knee - Pain 07/04/22 Jeff Dillard is a 51 y.o. year old male presenting for evaluation of Left knee pain. Patient is new patient to us. Patient states that he has had chronic left knee pain for many years now. He states over the last 2 years it is gotten profoundly worse. He notes that he had an ACL reconstruction done in 1987. He states that he has been good since the surgery but is quickly started to become debilitating. He states that he is unable to work and has been put off work and told to seek out treatment and then have this done in order to return to work. He states that his bothers him throughout all hours. He has had cortisone injections we do not help at all. Patient History Past Surgical History: Procedure Laterality Date KNEE SURGERY Left x2 Past Medical History: Diagnosis Date Hypertension Objective Examination left knee reveals skin clean dry and intact. No surrounding erythema ecchymosis or swelling. He does have tenderness palpation about the medial lateral joint lines. Range of motion is 5 degrees shy of full extension to [id number] degrees of flexion. There is crepitus throughout range of motion. Knee is ligamentously stable. Imaging personally reviewed: X-rays from the [facility] system reviewed of the left knee that demonstrate severe tricompartmental arthritis present there is presence of orthopedic hardware in place in both the tibia as well as the femur consistent with ACL reconstruction Assessment/Plan Jeff Dillard is a 51 y.o. year old male with Primary osteoarthritis of left knee [M17.12] Discussion was had with patient today to be filled since he has been failing all conservative measures for treatment of his left knee osteoarthritis that he would benefit from a left knee arthroplasty. Referral was given to Dr. Hogan. Marcelino Curtis MD Orthopedic Surgery, PGY-5 07/04/22 12:54 PM By using the attestations below, the signing clinician agrees that I have read and verify that the documentation has been personally reviewed by me and ensure that the documentation accurately reflects the encounter. Office Visit Attestation GC: I personally saw this patient on the day of the encounter, performed the henry portion(s) of the service and participated in the management and confirm the resident's documentation. Please note there may be an additional personal documentation from me. Complexity of Problem Addressed One acute complicated injury Amount and/or Complexity of Data Reviewed Independent interpretation of test Risk of Complications and/or Morbidity or Mortality of Patient Management [facility] 05-05-2022 Note PROCEDURE: Multiplan ar, multisequence imaging including T1, T2 without contrast. FINDINGS: Normal lumbar vertebral body alignment. No acute or subacute fracture. Minimal arthritic end plate signal intensity changes. Several mm Schmorl nodes superior end plates of L4 and T12. Normal conus medullaris and filum terminale. Unremarkable paravertebral soft tissues. No deep soft tissue inflammatory signal. T11/12: Mild disc space loss, no disc herniation, spinal canal or neuroforaminal stenosis. T12/L1: Normal. L1/2: Normal disc volume. No disc herniation, spinal canal or neuroforaminal stenosis. Bilateral facet arthropathy including a small amount of facet fluid. L2/3: Normal disc volume. No disc herniation, spinal canal or neuroforaminal stenosis. Bilateral facet arthropathy, minimal facet fluid. L3/4: Normal disc volume. Small broad-based left paraentral disc herniation. No significant spinal canal stenosis. Mild disc bulging and facet arthropathy contributes to mild left entry and mid neuroforaminal stenosis. L4/5: Normal disc volume. No disc herniation or spinal canal stenosis. Moderate facet arthropathy. L5/S1: Mild disc space loss. Mild central disc bulging. Broad-based central annular tear. No disc herniation, spinal canal or neuroforaminal stenosis. IMPRESSION: Mild to moderate degress of left side neuroforaminal stenosis, bilateral facet arthropathy Report reported and signed by Raheel Andrews on 05/05/2022 [address] [facility] [employer] 09-07-2021 Note [id number]#1.00CD:127 [facility] 09-07-2021 Note [id number]#1.00CD:127 [facility] 09-07-2021 Note [id number]#1.00CD:127 [facility] 08-26-2021 Note [id number]#1.00CD:127 [facility] 08-02-2021 Note [id number]#1.00CD:127 [facility] 06-08-2021 Note Chief Complaint consultation for umbilical hernia HPI Staff 50 year old male presents on consultation from Fallon Ag NP for umbilical hernia. Present greater than one year. Has not noted increase in size. Eating large quantity of food creates pain. Heating pad alleviates pain. Intermittent difficulty moving bowels. CT ABD/pelvis completed 05/14 confirms umbilical hernia in addition to small bilateral inguinal hernias. History of Present Illness 50 yo male with h/o htn, referred for enlarging, painful umbilical hernia; patient reports several year h/o umbilical hernia; increasing in size over last several months, also soreness, area does reduce; no N/V; does report some intermittent bloating and difficulty moving his bowels; no blood in stools; no wt loss; no previous abdominal operations. recent abdominal/pelvic ct scan with small, fat containing umbilical hernia; patient denies asa or NSAID use, no SBE prophylaxis; no fmhx of GI malignancy or IBD; no previous colonoscopy; smokes 1/2 ppd. Review of Systems PHQ Score Initial Depression Screen Score: 0 ROS - Provider Constitutional: no fever, no sweats, no weight loss. Eyes: no glasses, no blurred vision, no visual loss. ENMT: no dentures, no hoarseness, no swallowing difficulties, no hearing loss, no ear infection(s), no nose bleeds. Cardiovascular: normal blood pressure, no chest pain, regular heartbeat, no heart murmur. Respiratory: no shortness of breath, no cough, no asthma, no wheezing. Gastrointestinal: no nausea, no vomiting, no diarrhea, no constipation, no blood in stool, yes change in bowel habits, yes abdominal pain, no hepatitis. Genitourinary: no kidney stones, no urine infection, no dysuria. Musculoskeletal: no pain, no weakness. Skin: no changing moles, no rash, no skin lumps. Neurologic: no seizures, no epilepsy, no headache. Psychiatric: no emotional or psychiatric problem. Heme/Lymph: no bleeding problems, no anemia, no blood clots, no transfusions. Allergy/Immunologic: no swollen lymph nodes/glands, no IV drug abuse. Other: Additional ROS info: Except as noted in the above Review of Systems and in the History of Present Illness, all other systems have been reviewed and are negative or noncontributory. Physical Exam Vitals & Measurements T: 36.4 ?C(Temporal Artery) HR: 80(Peripheral) RR: 16 BP: 152/84 HT: 170.2 cm HT: 170.18 cm WT: 98.4 kg WT: 98.4 kg BMI: 33.98 HEENT: normal conjunctiva, sclera clear, no scleral icterus, EOM intact, PERRLA, oral mucosa moist without lesions. Neck: trachea midline, no mass, symmetric, no thyromegaly or nodules, no adenopathy Respiratory: lungs CTA, respirations non labored. Cardiovascular: regular rate and rhythm, no murmur, no pedal edema or varicosities. Gastrointestinal: obese, soft, non distended, mild tenderness,at umbilicus, no skin changes or edema; 1.5 cm hernia sac, reducible, 1 cm umbilical defect; no masses, no palpable hernias, diastasis recti yes, no hepatosplenomegaly; normal bs Lymphatic: no cervical adenopathy, Musculoskeletal: normal gait, digits and nails without infection, nodes, cyanosis, clubbing. Skin: no rashes, no lesions, no ulcers, no subcutaneous nodules, induration. Psychiatric/Neuro: oriented to time, place, person, judgement normal, affect appropriate for age, insight intact, no focal deficits. Tests: labs reviewed, x-rays reviewed, review of old records completed, Discussed surgical options, risks, and possible complications with patient. Assessment/Plan 1. Umbilical hernia (K42.9: Umbilical hernia without obstruction or gangrene) plan robotic-assisted umbilical herniorrhaphy with mesh insertion; informed consent obtained; will proceed after colonoscopy done to evaluate bowel changes. 2. Change in bowel habits (R19.4: Change in bowel habit) plan colonoscopy under anesthesia for further evaluation, informed consent obtained. will proceed prior to hernia repair. 3. Abdominal bloating with cramps (R14.0: Abdominal distension (gaseous)) see # 2 4. Tobacco use (Z72.0: Tobacco use) We strongly recommend to quit tobacco use. Cigarette smoking harms nearly every organ of the body, causes many diseases, and reduces the health of smokers in general. Quitting smoking lowers your risk for smoking-related diseases and can add years to your life. We encourage you to visit www.smokefree.gov access to helpful resources including free telephone support. If you decide on prescription treatment to help you quit, your family doctor would be happy to provide these. 5. BMI 33.0-33.9,adult (Z68.33: Body mass index [BMI] 33.0-33.9, adult) recommend diet and exercise 6. Diastasis recti (M62.08: Separation of muscle (nontraumatic), other site) see # 1 Follow-up No qualifying data available Problem List/Past Medical History Ongoing Abdominal bloating with cramps BMI 33.0-33.9,adult Change in bowel habits Diastasis recti HTN (hypertension) DAYAMI (obstructive sleep apnea) Smoker (more content not included)... [facility] Comment on above: Result Comment: Elec tronically Signed By: SONIYA MATSON, Herbert Berkowitz\Date and Time Signed: 06/08/21 14:18 EST Evaluation + Plan note No data available for this section [facility] Discharge instructions No data available for this section [facility] Summary Purpose Family History No Family History Records FoundNo Family History Records FoundNo Family History Records FoundNo Family History Records FoundNo Family History Records Found Advance Directives No Advanced Directives Records FoundNo Advanced Directives Records FoundNo Advanced Directives Records FoundNo Advanced Directives Records FoundNo Advanced Directives Records Found Additional Source Comments (unrecognized sect ion and content) No Status Records FoundNo Status Records FoundNo Status Records FoundNo Status Records FoundNo Status Records Found INFORMATION SOURCE (unrecogn ized section and content) DATE CREATED AUTHOR 12/14/2017 [facility] DATE CREATED AUTHOR AUTHOR'S ORGANIZ ATION 10/30/2021 [facility] DATE CREATED AUTHOR AUTHOR'S ORGANIZ ATION 07/13/2022 [facility] dical Specialist DATE CREATED AUTHOR AUTHOR'S ORGANIZ ATION 08/08/2022 [facility] pital DATE CREATED AUTHOR AUTHOR'S ORGANIZ ATION 11/04/2022 [facility] FOR RECORDS PERTAINING TO PATIENTS WHO ARE OR HAVE BEEN ENROLLED IN A CHEMICAL DEPENDENCY/SUBSTANCEABUSE PROGRAM, SOME INFORMATION MAY BE OMITTED. This clinical summary was aggregated from multiple sources. Caution should be exercised in using it in the provision of clinical care. This summary normalizes information from multiple sources, and as a consequence, information in this document may materially change the coding, format and clinical context of patient data. In addition, data may be omitted in some cases. CLINICAL DECISIONS SHOULD BE BASED ON THE PRIMARY CLINICAL RECORDS. [facility] [employer] [facility]. provides no warranty or guarantee of the accuracy or completeness of information in this document.
[2024-11-08 06:51] LABS: Estimated GFR (African America >60 (>=60 mL/min/1.73m^2); Estimated GFR (Non-African Ame >60 (>=60 mL/min/1.73m^2)
== END 2024-11-08 06:33 | disposition home or self-care (01) ==
LOC: LAB 06:32
PROVIDERS: Pathology Anatomic Pathology & Clinical Pathology; PCP Nurse Practitioner Family
DX: G62.9 Polyneuropathy, unspecified (principal)
CPT/HCPCS: 82565

== ENCOUNTER 2024-11-15 06:53 | Outpatient (OUT) | payer OTHER, SELFPAY ==
--- NOTE | 2024-11-15 06:55 | MR_ITS ---
[address] [address] Patient Name: PATRIC DILLARD MRN: [id number] date: 1970 Sex: M Assigned Patient Location: MRI Current Patient Location: MRI Accession/Order Number: [id number] Exam Date: 11/15/2024 09:05 Report Date: 11/15/2024 09:11 At the request of: EFRAIN FAIR Procedure: MR head/brain wo/w con MR head/brain wo/w con 11/15/2024 8:48 AM SIGN AND SYMPTOMS: ^Peripheral Polyneuropathy, numbness and neuropathy bilateral hands PROTOCOL: Multiplanar multisequence MR images of the brain with and without IV contrast CONTRAST: 20 mL of intravenous Dotarem COMPARISON: None. FINDINGS: Extra axial spaces: Age appropriate. Hemorrhage: None. Ventricular system: Within normal limits. Basal cisterns: Within normal limits and not effaced. Cerebral parenchyma: T2 and FLAIR hyperintense foci in the periventricular and subcortical white matter is a nonspecific most likely related to chronic microvascular ischemic change. Midline shift: None.. Cerebellum: Within normal limits. Brainstem: Within normal limits. OTHER: Calvarium: Normal marrow signal. Vascular system: Satisfactory flow voids within the anterior and posterior circulation. Visualized Paranasal sinuses: Within normal limits. Visualized Orbits: Within normal limits. Visualized upper cervical spine: Within normal limits. Sella and skull base: Within normal limits. MR/MR head/brain wo/w con IMPRESSION: No acute intracranial pathology or abnormal postcontrast enhancement. Chronic microvascular ischemic changes are present. Impression dictated by: Fabián Lowe M.D. 11/15/2024 9:11 AM Dictation Location: [place] [address] Electronically authenticated by: [id number] Date: 11/15/2024 09:11
== END 2024-11-15 06:54 | disposition home or self-care (01) ==
LOC: MRI 06:53
PROVIDERS: PCP Nurse Practitioner Family
DX: G62.9 Polyneuropathy, unspecified (principal)
CPT/HCPCS: 70553; A9575